=== PATIENT | female | born 1955 | race Caucasian/White ===

== ENCOUNTER 2022-04-08 10:01 | Outpatient (CLI) | payer MEDICARE, SELFPAY ==
[2022-04-08 14:27] LABS: Chloride* 105 mmol/L (96-114)
[2022-04-08 14:28] LABS: Potassium* 5.3 mmol/L (3.6-5.1); Sodium* 141 mmol/L (135-149)
[2022-04-08 14:29] LABS: Cholesterol* 202 mg/dL (90-199); HDL Cholesterol* 63 mg/dL (>=50); LDL Cholesterol Calculated 126 mg/dL (<100); Triglycerides* 64 mg/dL (40-149)
[2022-04-08 14:30] LABS: Creatinine* 0.8 mg/dL (0.5-1.5); Estimated Glomerular Filt Rate 82 ml/min
[2022-04-08 14:31] LABS: Alanine Aminotransferase* 18 U/L (4-35); Alkaline Phosphatase* 108 U/L (40-150); Aspartate Amino Transferase* 23 U/L (12-35); Bilirubin Total* 0.5 mg/dL (0.1-1.5); Blood Urea Nitrogen* 22 mg/dL (7-30); Carbon Dioxide* 32 mmol/L (20-32); Glucose* 100 mg/dL (60-115); Total Protein* 7.6 g/dL (6.0-8.3)
[2022-04-08 14:32] LABS: Calcium* 8.7 mg/dL (8.4-10.6)
== END 2022-04-08 10:02 | disposition home or self-care (01) ==
PROVIDERS: PCP Family Medicine; Visit Provider Dermatology
DX: L30.9 Dermatitis, unspecified (principal); Z13.6 Encounter for screening for cardiovascular disorders
CPT/HCPCS: 80053; 80061

== ENCOUNTER 2022-07-14 07:56 | Outpatient (CLI) | payer MEDICARE, SELFPAY ==
[2022-07-14 14:20] LABS: Albumin* 4.1 g/dL (3.3-5.0); Chloride* 107 mmol/L (96-114)
[2022-07-14 14:21] LABS: Potassium* 4.5 mmol/L (3.6-5.1); Sodium* 143 mmol/L (135-149)
[2022-07-14 14:23] LABS: Alkaline Phosphatase* 104 U/L (40-150); Aspartate Amino Transferase* 20 U/L (12-35); Bilirubin Total* 0.7 mg/dL (0.1-1.5); Blood Urea Nitrogen* 19 mg/dL (7-30); Carbon Dioxide* 27 mmol/L (20-32); Creatinine* 0.8 mg/dL (0.5-1.5); Estimated Glomerular Filt Rate 82 ml/min; Total Protein* 7.3 g/dL (6.0-8.3)
[2022-07-14 14:24] LABS: Alanine Aminotransferase* 17 U/L (4-35); Calcium* 9.2 mg/dL (8.4-10.6); Glucose* 92 mg/dL (60-115)
== END 2022-07-14 07:57 | disposition home or self-care (01) ==
LOC: FRMREF 07:57
PROVIDERS: PCP Family Medicine; Visit Provider Dermatology
DX: Z79.631 Long term (current) use of antimetabolite agent (principal)
CPT/HCPCS: 80053

== ENCOUNTER 2022-11-19 08:10 | Outpatient (CLI) | payer MEDICARE, SELFPAY | END 2022-11-19 08:11 | disposition home or self-care (01) | LOC: NFLDREF 18:17 | PROVIDERS: PCP Family Medicine; Referring Provider Family Medicine; Visit Provider Dermatology | DX: Z79.631 Long term (current) use of antimetabolite agent (principal) | CPT/HCPCS: 80053 ==

== ENCOUNTER 2022-12-24 14:25 | Outpatient (CLI) | payer MEDICARE, SELFPAY | END 2022-12-24 14:26 | disposition home or self-care (01) | PROVIDERS: PCP Family Medicine; Visit Provider Family Medicine | DX: R10.30 Lower abdominal pain, unspecified (principal); E66.01 Morbid (severe) obesity due to excess calories; R53.83 Other fatigue | CPT/HCPCS: 80053; 87086 ==

== ENCOUNTER 2023-01-20 08:07 | Outpatient (CLI) | payer MEDICARE, SELFPAY | END 2023-01-20 08:08 | disposition home or self-care (01) | LOC: NFLDREF 01-21 09:45 | PROVIDERS: PCP Family Medicine; Referring Provider Family Medicine; Visit Provider Dermatology | DX: E66.01 Morbid (severe) obesity due to excess calories (principal); L65.9 Nonscarring hair loss, unspecified; E55.9 Vitamin D deficiency, unspecified; F41.9 Anxiety disorder, unspecified; R10.9 Unspecified abdominal pain; Z79.631 Long term (current) use of antimetabolite agent | CPT/HCPCS: 80053 ==

== ENCOUNTER 2023-04-08 08:22 | Outpatient (CLI) | payer MEDICARE, SELFPAY | END 2023-04-08 08:23 | disposition home or self-care (01) | LOC: NFLDREF 04-14 08:10 | PROVIDERS: PCP Family Medicine; Referring Provider Family Medicine; Visit Provider Dermatology | DX: L20.9 Atopic dermatitis, unspecified (principal); Z79.631 Long term (current) use of antimetabolite agent | CPT/HCPCS: 80053 ==

== ENCOUNTER 2023-07-08 08:08 | Outpatient (CLI) | payer MEDICARE, SELFPAY | END 2023-07-08 08:09 | disposition home or self-care (01) | LOC: NFLDREF 07-09 07:38 | PROVIDERS: PCP Family Medicine; Referring Provider Family Medicine; Visit Provider Dermatology | DX: Z79.631 Long term (current) use of antimetabolite agent (principal) | CPT/HCPCS: 80053 ==

== ENCOUNTER 2023-08-09 08:40 | Outpatient (CLI) | payer MEDICARE, SELFPAY | END 2023-08-09 08:41 | disposition home or self-care (01) | LOC: NFLDREF 08-11 11:51 | PROVIDERS: PCP Family Medicine; Referring Provider Family Medicine; Visit Provider Family Medicine | DX: Z00.00 Encounter for general adult medical examination without abnormal findings (principal); E55.9 Vitamin D deficiency, unspecified; E66.01 Morbid (severe) obesity due to excess calories; R53.83 Other fatigue; R73.01 Impaired fasting glucose | CPT/HCPCS: 80053; 80061; 82306 ==

== ENCOUNTER 2023-08-18 14:37 | Outpatient (CLI) | payer MEDICARE, SELFPAY ==
--- NOTE | 2023-08-18 15:00 | CRLHL7_ITS ---
For Patients: As a result of the Century Cures Act, medical imaging exams and procedure reports are released immediately into your electronic medical record. You may view this report before your referring provider. If you have questions, please contact your health care provider. Indication: Pulmonary nodule follow up Technique: Noncontrast CT chest Please note that all CT scans at this facility use dose modulation, iterative reconstruction, and/or weight-based dosing when appropriate to reduce radiation dose to as low as reasonably achievable. Comparison: 10/31/2021 Findings: 7.2 cm hiatal hernia is again noted. Chronic stranding with sub centimeter lymph nodes noted in the central mesenteric fat representing incidental mesenteric panniculitis. Spleen is not enlarged. No adrenal lesion. Visualized right kidney normal. Left renal fossa is similar. No calcified gallstones. Normal noncontrast enhanced liver. Mild pancreatic atrophy. No enlarged lymph nodes. No thyroid lesion. Vascular calcifications. Degenerative changes. No fracture. No suspicious osseous lesion. Stable nodular density right middle lobe, . Stable linear density in the medial aspect of the right upper lobe, 11/19. Impression: Stable small right-sided pulmonary nodules. No new nodule. Unchanged hiatal hernia. Please note that all CT scans at this facility use dose modulation, iterative reconstruction, and/or weight-based dosing when appropriate to reduce radiation dose to as low as reasonably achievable. Dictated by Elan Mon MD @ 08/19/2023 4:39:41 PM (Electronically Signed)
== END 2023-08-18 14:38 | disposition home or self-care (01) ==
LOC: CT 14:38
PROVIDERS: PCP Family Medicine; Visit Provider Family Medicine
DX: R91.1 Solitary pulmonary nodule (principal); K44.9 Diaphragmatic hernia without obstruction or gangrene
CPT/HCPCS: 71250

== ENCOUNTER 2023-10-12 08:27 | Outpatient (CLI) | payer MEDICARE, SELFPAY | END 2023-10-12 08:28 | disposition home or self-care (01) | LOC: NFLDREF 10-13 11:30 | PROVIDERS: PCP Family Medicine; Referring Provider Family Medicine; Visit Provider Dermatology | DX: L30.9 Dermatitis, unspecified (principal); Z79.631 Long term (current) use of antimetabolite agent | CPT/HCPCS: 80053 ==

== ENCOUNTER 2023-11-05 08:40 | Outpatient (CLI) | payer MEDICARE, SELFPAY ==
--- NOTE | 2023-11-05 09:45 | MM_ITS ---
Patient: MARINO CHANG Facility:?[facility] R[facility] Patient ID:?[id number] Site Patient ID:?[id number]. Site :?1955 Study:?XRay-Breast Bilateral 3D W/CAD-11/05/2023 10:08:32 AM Ordering Physician:Veronica Final Report: BILATERAL DIGITAL SCREENING MAMMOGRAM WITH COMPUTER-AIDED DETECTION AND TOMOSYNTHESIS 11/05/2023 CLINICAL HISTORY: Routine screening exam. COMPARISON: 12/11/2021, 01/28/2020. TECHNIQUE: Digital mammogram in CC and MLO projections including computer-aided detection (CAD) and tomosynthesis. BREAST COMPOSITION: Scattered fibroglandular densities. FINDINGS: RIGHT Breast: Focal nodular density retroareolar plane, slightly medial, 2 cm from the nipple. LEFT Breast: No suspicious findings. IMPRESSION: RIGHT breast asymmetry/mass. RECOMMENDATIONS: Additional mammographic views of the RIGHT breast including 3D spot-compression CC/MLO. RIGHT breast ultrasound may also be required. [facility] will contact the patient. BI-RADS Category 0: Incomplete: Need Additional Imaging Evaluation and/or Prior Mammograms for Comparison Dictated by Elan Mon MD @ 11/05/2023 11:38:01 AM ZIGGY/gianni DW/Dictated by: Elan Mon MD @ 11/05/2023 11:38:00 AM Signed by:?Elan Mon MD @11/05/2023 2:34:25 PM (Electronic Signature)
== END 2023-11-05 08:41 | disposition home or self-care (01) ==
LOC: MAMMO 08:43
PROVIDERS: PCP Family Medicine; Visit Provider Family Medicine
DX: Z12.31 Encounter for screening mammogram for malignant neoplasm of breast (principal); N63.10 Unspecified lump in the right breast, unspecified quadrant
CPT/HCPCS: 77063; 77067

== ENCOUNTER 2023-11-25 08:36 | Outpatient (CLI) | payer MEDICARE, SELFPAY ==
--- NOTE | 2023-11-25 08:45 | MM_ITS ---
Patient: MARINO CHANG Facility:?[facility] R[facility] Patient ID:?[id number] Site Patient ID:?[id number]. Site :?1955 Study:?XRay-Breast Right 3D W/CAD-11/25/2023 9:24:28 AM Ordering Physician:Veronica Final Report: DIGITAL DIAGNOSTIC RIGHT MAMMOGRAM USING TOMOSYNTHESIS AND COMPUTER-AIDED DETECTION RIGHT BREAST ULTRASOUND CLINICAL HISTORY: RIGHT breast mass/asymmetry. COMPARISON: 11/05/2023. TECHNIQUE: Digital RIGHT mammogram in two projections. Tomosynthesis and CAD utilized. Real-time ultrasound imaging of RIGHT breast with imaging documentation. Scanning was performed by both the technologist and the radiologist. BREAST COMPOSITION: There are areas of scattered fibroglandular density. FINDINGS: 3D spot compression CC/MLO RIGHT breast mammogram images submitted. Persistent nodular density within the retroareolar plane. No architectural distortion. No suspicious calcifications. Targeted RIGHT breast ultrasound performed. At 12 o`clock 2 cm from the nipple there is a macrolobular hypoechoic mass with angular margins measuring 20 x 12 x 16 millimeters. Other smaller similar lesions are present in the adjacent soft tissues. IMPRESSION: Suspicious 2 cm lesion RIGHT breast 12 o`clock 2 cm from the nipple. RECOMMENDATIONS: Ultrasound-guided core needle biopsy of the 2 cm lesion. Results and recommendations discussed with the patient. BI-RADS Category 4: Suspicious A lay language report of this examination will be provided to the patient. Dictated by Elan Mon MD @ 11/25/2023 10:20:21 AM jj/Dictated by: Elan Mon MD @ 11/25/2023 10:20:00 AM Signed by:Edson Mon MD @11/25/2023 12:15:08 PM (Electronic Signature)
--- NOTE | 2023-11-25 09:15 | US_ITS ---
Patient: MARINO CHANG Facility:?[facility] Patient ID:?[id number] Site Patient ID:?[id number]. Site :?1955 Study:?US-Breast Right DR LEWIS TO READ-11/25/2023 10:52:42 AM Ordering Physician:?ZHOU CHEN Final Report: PLEASE SEE DIGITAL DIAGNOSTIC RIGHT MAMMOGRAM PERFORMED SAME DAY CRL:kahlil guillory/Dictated by: Elan Lewis MD @ 11/25/2023 11:17:00 AM Signed by:?Elan Lewis MD @11/25/2023 12:15:14 PM (Electronic Signature)
== END 2023-11-25 08:37 | disposition home or self-care (01) ==
LOC: MAMMO 08:37
PROVIDERS: PCP Family Medicine; Visit Provider Family Medicine
DX: N63.10 Unspecified lump in the right breast, unspecified quadrant (principal); R92.8 Other abnormal and inconclusive findings on diagnostic imaging of breast
CPT/HCPCS: 76642; 77065; G0279

== ENCOUNTER 2023-12-06 06:43 | Outpatient (CLI) | payer MEDICARE, SELFPAY ==
--- NOTE | 2023-12-06 08:15 | US_ITS ---
Patient: MARINO CHANG Facility:?[facility] R[facility] Patient ID:?[id number] Site Patient ID:?[id number] Site :?1955 Study:?US-Breast Right DR LEWIS TO READ-12/06/2023 9:02:38 AM Ordering Physician:?ZHOU CHEN Final Report: ULTRASOUND-GUIDED CORE NEEDLE RIGHT BREAST BIOPSY OF TWO SITES AND POST-BIOPSY DIGITAL MAMMOGRAM FOR BIOPSY MARKER PLACEMENT CLINICAL HISTORY: Indeterminate nodules. COMPARISON STUDIES: 11/25/2023, 11/05/2023 TECHNIQUE: Real-time ultrasound with image documentation was used for targeting the breast lesions. A core needle biopsy system was used to obtain core tissue samples with a 18 gauge needle. Post-biopsy CC and ML digital mammograms were obtained to document position of the biopsy marker. CONSENT and TIME OUT: The procedure, risks, and alternatives were explained to the patient and a consent was signed. [place] Protocol was followed including pre-procedure verification that relevant information/documentation was available, reviewed and properly matched to the patient; consent accurate and complete; and equipment and supplies available. Time Out was conducted just prior to starting procedure to verify the four required elements: patient identity, correct side/site marked (if applicable), procedure, relevant images/results properly labeled and displayed (if applicable). PROCEDURE: All biopsies were performed in a similar manner. The patient was positioned supine on the ultrasound table. The breast was prepped with ChloraPrep. 8 cc of 1 percent lidocaine used for local anesthesia. Core samples were obtained. A sterile metal biopsy clip was placed percutaneously to gurpreet the lesion position within the breast. The specimens were placed in 10% formalin and sent to the Pathology Department. Pressure was held on the biopsy site until all bleeding subsided. The skin incision was closed with Steri-Strips. An ice pack was positioned over the biopsy site. The patient tolerated the procedure well. Post- biopsy instructions were reviewed with the patient, and a written copy was given to her. SITE A: LATERALITY: Right breast. LESION: Hypoechoic solid nodule with angular margins measuring 1.2 x 1.1 cm at 12 o`clock 2 cm from the nipple. SUSPICION: High NUMBER OF SAMPLES: 5 BIOPSY CLIP SHAPE: Oval PROXIMITY OF CLIP TO TARGET: Within the lesion. SITE B: LATERALITY: Right breast. LESION: Hypoechoic solid nodule anterior depth measuring 4 x 2 x 4 millimeters at 12 o`clock 1 cm from the nipple. SUSPICION: Medium NUMBER OF SAMPLES: 5 BIOPSY CLIP SHAPE: Twirl. PROXIMITY OF CLIP TO TARGET: Within the lesion. DISTANCE BETWEEN: Sites A and B: 1.4 cm IMPRESSION: Ultrasound-guided breast biopsy of two sites. When the pathology report is available, an addendum to this report will be made. 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 This is concordant. Appropriate action recommended. Pathology for sample B is DCIS, grade 2/3. This is concordant. Appropriate action recommended. Note that there are other small hypoechoic lesions in the adjacent tissues. Mastectomy should be considered rather than lumpectomy. Dictated by: Elan Lewis MD @12/08/2023 10:00:50 AM / Dory Signed by:?Elan Lewis MD @12/08/2023 11:18:25 AM (Electronic Signature)
--- NOTE | 2023-12-06 09:00 | MM_ITS ---
Patient: MARINO CHANG Facility:?[facility] R[facility] Patient ID:?[id number] Site Patient ID:?[id number] Site :?1955 Study:?XRay-Breast Right 2D w/ CAD POST CLIP PLACEMENT-12/06/2023 8:53:30 AM Ordering Physician:Veronica Final Report: PLEASE SEE RIGHT ULTRASOUND-GUIDED BIOPSY OF SAME DAY. CRL:pjt PT/Dictated by: Elan Mon MD @ 12/06/2023 10:22:00 AM Signed by:?Elan Mon MD @12/06/2023 10:36:27 AM (Electronic Signature)
== END 2023-12-06 06:44 | disposition home or self-care (01) ==
LOC: US 06:43
PROVIDERS: PCP Family Medicine; Visit Provider Family Medicine
DX: N63.10 Unspecified lump in the right breast, unspecified quadrant (principal); C50.911 Malignant neoplasm of unspecified site of right female breast; R92.8 Other abnormal and inconclusive findings on diagnostic imaging of breast
CPT/HCPCS: 19083; 19084; 77065; 88305; 88341; 88342; 88360; 88361; 88377; A4648; A4649

== ENCOUNTER 2023-12-24 06:39 | Outpatient (CLI) | payer MEDICARE, SELFPAY ==
--- NOTE | 2023-12-24 07:15 | MR_ITS ---
Patient: MARINO CHANG Facility:?[facility] R[facility] Patient ID:?[id number] Site Patient ID:?[id number]. Site :?1955 Study:?MRI-Breast W/ and W/O Cont 20 CC DOATERM-12/24/2023 11:33:57 AM Ordering Physician:?GREGG CHAMORRO Final Report: BILATERAL BREAST MRI WITHOUT AND WITH GADOLINIUM CLINICAL HISTORY: New diagnosis RIGHT breast cancer. INDICATION FOR BREAST MRI: Staging of newly diagnosed breast cancer and screening of contralateral breast. Regional lymph nodes will also be assessed. COMPARISON STUDIES: 11/05/2023, 11/25/2023, 12/06/2023. CONTRAST: 30 mL Dotarem. TECHNIQUE: The patient was positioned prone using a breast coil. Multiple imaging sequences were obtained using 1-1.5 mm thick slices with no gap. The image sequences include T2-weighted STIR in the axial plane, T1-weighted nonfat-saturated gradient echo in the axial plane, pre- and post-contrast T1-weighted FLASH 3D with fat suppression in the axial plane, and T1-weighted FLASH high resolution 3D with fat suppression in the sagittal plane. Image post-processing was performed on a [employer] workstation. Complex 3D rendering including maximum intensity projections (MIPS) and volumetric renderings were obtained to optimize visualization of the extent of pathology and relationship to the nipple, skin, and chest wall. This aids in determining feasibility of breast conservation surgery. Subtraction, multiplanar reconstruction, mean curve determination, and angiogenesis mapping were also performed. The study is limited by large breast size. FINDINGS: Amount of Fibroglandular Tissue: Almost entirely fatty. Breast Background Enhancement: Mild. RIGHT Breast: The anterior portion of the RIGHT breast is compressed due to size and positioning. The new cancer at 12 o`clock 2 cm from the nipple is visualized as a solid irregular enhancing mass containing the Q-shaped marker clip placed. Measurement is 13 mm in diameter. The second biopsy site is not clearly seen on MRI due to positioning. The marker clip is not visualized. There is a small enhancing mass just inferior lateral to the primary biopsy-proven cancer. Measurement 5 mm in size. This may be the second known cancer site. The remainder of the RIGHT breast is negative. LEFT Breast: No suspicious mass or non-mass enhancement. There is compression of the anterior portion of the breast which limits the study. IMPRESSIONS AND RECOMMENDATIONS: The new breast cancer Site A is visualized at 12 o`clock 2 cm from the nipple as a 13 mm enhancing mass with a signal void from marker clip placed at biopsy. Nearby there is a 5 mm mass with enhancement. This may or may not be the Site B biopsy site. The LEFT breast is negative. No enlarged lymph nodes. Study is technically limited due to breast size. Recommend proceed with treatment based on ultrasound and mammogram images which showed the anterior portion of the breast to better advantage. BI-RADS Category 6: Known biopsy-proven malignancy Dictated by Ana Quinn MD @ 12/27/2023 5:20:41 PM jj/Dictated by: Ana Quinn MD @ 12/27/2023 5:29:00 PM Signed by:?Ana Quinn MD @12/29/2023 3:36:50 PM (Electronic Signature)
== END 2023-12-24 06:40 | disposition home or self-care (01) ==
LOC: MRI 06:39
PROVIDERS: PCP Family Medicine; Visit Provider Surgery
DX: C50.911 Malignant neoplasm of unspecified site of right female breast (principal)
CPT/HCPCS: 77049; C8908; C8937; A9575

== ENCOUNTER 2024-01-18 06:48 | Inpatient (IN) | payer MEDICARE, SELFPAY ==
[2024-01-18] VITALS (21 sets, daily range): BP systolic 115–168; BP diastolic 52–98; PULSE 71–101; RESP 14–16; TEMP 36.1–36.8; O2SAT 92–99; BMI 49.8
[2024-01-18] MEDS: LACTATED RINGERS 1000 ML 1,000 ML 100 ML IV ×2 (07:18→13:12)
[2024-01-18] MEDS: SODIUM CHLORIDE 0.9 % (FLUSH) 10 ML SYRINGE IVF (07:18)
--- NOTE | 2024-01-18 08:00 | CRLHL7_ITS ---
For Patients: As a result of the Century Cures Act, medical imaging exams and procedure reports are released immediately into your electronic medical record. You may view this report before your referring provider. If you have questions, please contact your health care provider. SENTINEL LYMPH NODE LOCALIZATION INJECTION CLINICAL HISTORY: Breast cancer LATERALITY: Right breast TECHNIQUE: With the patient supine, the periareolar right breast was cleansed with alcohol. Approximately 1 cc of 1% buffered lidocaine was injected intradermal in the upper outer periareolar region of the right breast with a 25-gauge needle. Next, 0.81 millicuries of technetium Tc 99m sulfur colloid in a volume of 1 cc was injected intradermal in the upper outer periareolar breast with a 25-gauge needle. The patient tolerated the procedure well and there were no immediate complications. IMPRESSION: Injection for sentinel lymph node of the right breast. Dictated by Elan Mon MD @ 01/19/2024 12:44:24 PM (Electronically Signed)
--- NOTE | 2024-01-18 08:21 | W.PM.H&PU ---
History & Physical Update History & Physical Update H&P Reviewed and patient assessed: No changes noted
[2024-01-18] MEDS: ISOSULFAN BLUE 5 ML VIAL INJECTION (09:10)
[2024-01-18] MEDS: CEFAZOLIN 1 GM inj 3 GM IVP (09:10)
--- NOTE | 2024-01-18 09:47 | W.ANESCHARGE ---
Anesthesia Charges Start Date/Time Anesthesia Start Date: 01/18/24 Anesthesia Start Time: 08:50 Stop Date/Time Anesthesia Stop Date: 01/18/24 Anesthesia Stop Time: 13:46
--- NOTE | 2024-01-18 09:48 | W.PM.NB ---
Nerve Block Nerve Block Time Seen by Provider: 09:05 Date Seen: 01/18/24 Type of block requested by surgeon for post-operative analgesia: intercostal (PECS 1 and 2) and intercostal add on Side: bilateral Time out performed: Yes Verification of patient name: Yes Verification of date of : Yes Site marking: site marked Name of person performing procedure: Titi Continuous monitoring Was continuous monitoring of O2 sat, B/P, monitoring and evaluation advisor, recorded every 15 minutes?: Yes Procedure Checklist: sterile prep, needles and gloves Ultrasound guided. Images saved: Yes Medications given in 5ml increments after negative aspiration: Marcaine %: 0.25 mL: 30 and Exparel mL: 20 Needle gauge: 20 Patient tolerated procedure well: Yes Block Charges Block Charge (with Pro Fee): Intercostal Nerve Block Use of Ultrasound Machine for Block: Yes- US Guidance/pain block
--- NOTE | 2024-01-18 13:54 | W.ANESCHARGE ---
Anesthesia Charges Start Date/Time Anesthesia Start Date: 01/18/24 Anesthesia Start Time: 08:50 Stop Date/Time Anesthesia Stop Date: 01/18/24 Anesthesia Stop Time: 13:46
[2024-01-18] MEDS: fentaNYL 100 MCG/2 ML inj 50 MCG IVP (14:03)
--- NOTE | 2024-01-18 14:09 | P.GSOP_ITS ---
Operative Note Date of procedure: 01/18/24 Pre-op diagnosis: Invasive ductal carcinoma, right breast Post-op diagnosis: Same Type of Procedure: 1. Bilateral mastectomy 2. Injection of radionucleotide tracer 3. [place] lymph node biopsy, right axilla Indications: Patient is a 68-year-old female who presented to clinic with a diagnosis of i nvasive ductal carcinoma to the right breast. Workup was obtained and different treatment options discussed with patient, please see consultation note for full discussion. Risks and benefits of operative intervention were discussed at length with the patient. Risks included, but were not limited to: Bleeding, infection, risk of damage to surrounding structures and possible need for additional procedures. Additionally we reviewed the risk of sentinel lymph node biopsy, specifically lymphedema and nerve injury. All questions and concerns were addressed with patient agreeing to proceed. Procedure Description: After discussing the risks and benefits of the procedure, the patient signed informed consent.? Prior to proceeding to the operating room an injection of a radionucleotide tracer was performed in the patient's right breast. The operative site was marked and the patient was brought to the operating room and placed on the operating table in supine position.? Care was taken to pad the patient's pressure points.?? The patient was then intubated by anesthesia.?? The operative site was then prepped and draped in the usual sterile fashion.? A time-out was then performed. I injected 3 cc of lymphazurin blue in the patient's right breast. I then performed breast massage for a period of 5 minutes. I performed an elliptical incision on the right breast around the nipple-areolar complex and started by dissecting the subcutaneous tissues using electrocautery. The breast flaps were created circumferentially, dissecting all the breast tissue off of the overlying skin superiorly up to the clavicle, medially to the lateral border of the sternum, laterally out to the latissimus and inferiorly to the inferior aspect of the breast fold. Once flaps had been raised in all 4 directions down to the level of the fascia, the breast was taken off of the chest wall. The underlying tissue was inspected. Any identified bleeding vessel s were tied off with 3 0 Vicryl suture. Hemostasis was excellent at the end. The breast was removed through the incision and marked with a single stitch at 12:00 p.m.. It was sent to pathology for immediate assessment. The known tumor was identified by the pathologist and all margins were negative. I then proceeded to take out the sentinel lymph nodes through the mastectomy incision. Using the Neoprobe I identified the sentinel lymph node. All nodes were grossly normal. The node was identified and carefully dissected out. The vascular pedicle was ligated with 3-0 Vicryl suture. The node was then passed off for frozen evaluation, which came back as no evidence of malignancy. Background counts in the axilla were low after removal. No further sentinel nodes were identified. When evaluating the elliptical incision on the right breast there was a significant amount of redundant skin and soft tissue. A portion of the superior and inferior flap were removed and sent for permanent evaluation. The elliptical incision was then brought together with interrupted 3-0 Vicryl. A 15 [place]er SJ drain was placed along the breast wall. The incision was closed with running 4-0 Monocryl suture. I then proceeded to perform a contralateral prophylactic mastectomy in the same fashion. I made an elliptical incision around the nipple-areolar complex and began by dissecting the subcutaneous tissues using electrocautery. The breast flaps were created circumferentially, dissecting all the breast tissue off of the overlying skin superiorly up to the clavicle, medially to the lateral border of the sternum, laterally out to the latissimus and inferiorly to the inferior aspect of the breast fold. Once flaps had been raised in all 4 directions down to the level of the fascia, the breast was taken off of the chest wall. The breast was removed through the incision and marked with a single stitch at 12:00 p.m.. It was sent to pathology for immediate assessment, where no obvious abnormalities were identified. Any bleeding vessels were tied off with 3 0 Vicryl. Hemostasis was excellent. A 15 [place]er SJ drain was placed on the left side. The elliptical incision was brought together with interrupted 3 0 Vicryl. The incision was closed with running 4-0 Monocryl suture. Steri-Strips and Sterile dressings were then applied. All bandages were held in place with an Daniel wrap. ? The patient was then woken and transported to the recovery area in stable condition. ? The patient tolerated the procedure well. Findings: Bilateral mastectomy. Right breast invasive ductal carcinoma, margins negative. Single sentinel lymph node identified and negative on frozen pathology. Anesthesia: GETA Surgeon: Reina Schroeder MD Estimated blood loss (mL): 200 Condition: stable Disposition: PACU [place] Node Biopsy for Breast Cancer Operation Performed with Curative Intent: Yes Tracers used to Identify sentinel nodes in the upfront surgery (non-neoadjuvant) setting: Dye and Radioactive Tracer Tracers used to identify sentinel nodes in the neoadjuvant setting: N/A All nodes (colored or non-colored) present at the end of a dye filled lymphatic channel were removed: Yes All significantly radioactive nodes were removed: Yes All palpably suspicious nodes were removed: Yes Biopsy proven positive nodes marked with clips prior to chemotherapy were identified and removed: Not Applicable
--- NOTE | 2024-01-18 18:08 | PC.NURSE ---
Pt arrived from surgery around 1420. Pt drowsy; Pt on one Liter of oxygen short term. Pt has two SJ drains; see charting for output. VSS. Pt advanced to regular diet and tolerated well. Pt up with assist of two to the bedside commode; blue/green urine. Family at beside.?
[2024-01-18] MEDS: DULOXETINE 30 MG CAPSULE DR 60 MG PO (20:27)
[2024-01-19] VITALS (8 sets, daily range): BP systolic 109–133; BP diastolic 57–74; PULSE 81–104; RESP 16–18; TEMP 36.3–36.7; O2SAT 91–97
--- NOTE | 2024-01-19 03:31 | PC.NURSE ---
Pt rested well this night. Afebrile. Reporting zero pain. SJ drains right and left draining 5 to 15 over 2 hr periods. Pt A1 to bedside commode. Pleasant and cooperative.
[2024-01-19] MEDS: DULOXETINE 30 MG CAPSULE DR 120 MG PO (13:02)
--- NOTE | 2024-01-19 15:06 | PC.SOCIAL ---
Addendum entered by JACIEL Patel 01/19/24 16:30: Discharge planning: roller shop utility worker met with pt, pt's sister and pt's daughter again this afternoon and updated them letting them know that [facility] and [facility] do not have openings this week. roller shop utility worker did let pt know that [facility] was reviewing the referral. roller shop utility worker asked pt if there were other facilities that this worker could reach out to for her and we reviewed the [facility] together. Pt wanted this worker to reach out to both facilities in [place], [place]. roller shop utility worker talked to Disha at [facility] and they stated they may have an opening on Wednesday and were willing to review the referral. roller shop utility worker faxed the referral to #[phone]. roller shop utility worker also contacted [facility] in [place] and left a message, but also faxed the referral to #[phone]. Social work to follow-up as needed. Original Note: Discharge planning: roller shop utility worker met with pt, pt's sister and pt's daughter today. PT/OT is recommending short-term rehab for the patient. Pt would like to go to [facility] in [place], [facility] in [place] or [facility] [place]. roller shop utility worker reached out to these facilities and [facility] and [facility] do not have any openings this week. [facility] stated they would have an opening on Wednesday and could review pt's referral. roller shop utility worker sent the referral to Komal at [facility] for review. roller shop utility worker will check-in with pt to see if there are other facilities that this worker can reach out to on her behalf. Social work to follow-up as needed.
--- NOTE | 2024-01-19 15:07 | PM.GSPN ---
Subjective Subjective Date Seen: 01/19/24 Interval history: Patient is doing well this morning. No complaints of pain. Has been tolerating a regular diet. No concerns this morning. Exam Narrative: Exam Narrative: Gen: alert and oriented, NAD Chest: Bilateral mastectomy incisions with steri strips in place. No bruising of flaps. No concern for ischemia. No large fluid collection. Bilateral drains in place with dark sanguinous output in bulbs. Const: Vital Signs, click to edit/add: Vital Signs - 24 hr 01/18/24 15:15 01/18/24 16:00 01/18/24 16:30 Temperature 97.4 F L 97.6 F 97.6 F Pulse Rate 71 79 81 Pulse Rate [Pulse Oximeter] Respiratory Rate 16 16 16 Blood Pressure 145/84 H 144/87 H 153/92 H Blood Pressure [Le ft Arm] Pulse Oximetry 98 98 98 Oxygen Delivery Me thod Room Air Room Air Room Air Oxygen Flow Rate 1 0 0 Fraction of Inspir ed Oxygen 01/18/24 17:30 01/18/24 18:50 01/18/24 19:25 Temperature 97.8 F 97.8 F 97.8 F Pulse Rate 76 95 86 Pulse Rate [Pulse Oximeter] Respiratory Rate 16 16 16 Blood Pressure 136/82 141/81 H 126/76 Blood Pressure [Le ft Arm] Pulse Oximetry 98 96 96 Oxygen Delivery Me thod Room Air Room Air Room Air Oxygen Flow Rate 0 0 0 Fraction of Inspir ed Oxygen 01/18/24 20:26 01/18/24 22:01 01/19/24 01:32 Temperature 97.8 F 97.8 F 97.8 F Pulse Rate 88 Pulse Rate [Pulse Oximeter] 92 87 Respiratory Rate 16 16 16 Blood Pressure 130/52 L Blood Pressure [Le ft Arm] 115/75 127/74 Pulse Oximetry 98 98 97 Oxygen Delivery Me thod Room Air Room Air Room Air Oxygen Flow Rate 0 Fraction of Inspir ed Oxygen 100 01/19/24 09:00 01/19/24 09:00 Temperature 98.1 F Pulse Rate Pulse Rate [Pulse Oximeter] 81 81 Respiratory Rate 18 18 Blood Pressure Blood Pressure [Le ft Arm] 129/73 Pulse Oximetry 95 Oxygen Delivery Me thod Room Air Oxygen Flow Rate Fraction of Inspir ed Oxygen Progress Note:A&P Assessment and plan (1) Invasive ductal carcinoma of breast: Status: Acute Plan Patient is pod1 bilateral mastectomy with right sentinel lymph node biopsy. Intra op frozen evaluation with negative margins around tumor and no evidence of metastatic disease. Dark sanguinous output, 125 since surgery. No concern for bleeding or undrained fluid collection. Patient does use a walker for mobility, so is limited in the post op phase. Social work has been consulted and is looking for rehab facilities. PT and OT consulted and seeing while inpatient. Anticipate discharge once placement is found. - regular diet - SJ drains to stay in place at the time of discharge - po pain meds as needed - PT and OT evaluations
--- NOTE | 2024-01-19 19:16 | PC.NURSE ---
PATIENT CONTINUES TO DENY PAIN OR N/V. UP WITH A1 AND WALKER TO BATHROOM AND RECLINER. DRESSING TO CHEST CDI. SJ x2 WITH BLOOD OUTPUT. AFEBRILE. TOLERATING REGULAR DIET.
[2024-01-20 01:51] VITALS: BP 124/63; PULSE 88; RESP 16; TEMP 36.2; O2SAT 92
--- NOTE | 2024-01-20 06:04 | PC.NURSE ---
Pt up A1 with walker. Reporting zero pain. SJ drains draining approx 5cc per 2hr period. Pt much stronger than previous night.
[2024-01-20 07:00] VITALS: BP 113/64; PULSE 88; RESP 18; TEMP 36.4; O2SAT 93
[2024-01-20 11:00] VITALS: BP 119/61; PULSE 83; RESP 18; TEMP 36.5; O2SAT 94
--- NOTE | 2024-01-20 12:15 | PM.GSPN ---
Subjective Subjective Date Seen: 01/20/24 Interval history: [place] is doing well. She denies any pain. She has not taken any pain medication. She is working with therapy. Minimal output from her drains. She is waiting for availability at a group home facility. Exam Narrative: Exam Narrative: General: No acute distress CV: Regular rate Respiratory: Breathing nonlabored on room air Chest: Dressings taken down. Habitus makes exam somewhat difficult, however there does not appear to be any large fluid collections. Patient does have fairly significant dog ears bilaterally, though they are soft without significant ecchymosis. Drain output is 100 mL bilaterally of bloody output. Const: Vital Signs, click to edit/add: Vital Signs - 24 hr 01/19/24 13:00 01/19/24 15:00 01/19/24 17:00 Temperature 98.1 F 98 F Pulse Rate [Pulse Oximeter] 83 84 84 Respiratory Rate 18 18 18 Blood Pressure [Le ft Arm] 109/57 L 123/63 Pulse Oximetry 96 94 Oxygen Delivery Me thod Room Air Room Air Oxygen Flow Rate 0 0 01/19/24 19:16 01/19/24 22:09 01/19/24 22:12 Temperature 97.4 F L 97.8 F Pulse Rate [Pulse Oximeter] 104 H 104 H 104 H Respiratory Rate 16 16 16 Blood Pressure [Le ft Arm] 133/64 123/72 Pulse Oximetry 92 91 Oxygen Delivery Me thod Room Air Room Air Oxygen Flow Rate 01/20/24 01:51 01/20/24 07:00 01/20/24 07:00 Temperature 97.2 F L 97.6 F Pulse Rate [Pulse Oximeter] 88 88 88 Respiratory Rate 16 18 18 Blood Pressure [Le ft Arm] 124/63 113/64 Pulse Oximetry 92 93 Oxygen Delivery Me thod Room Air Room Air Oxygen Flow Rate 01/20/24 11:00 Temperature 97.7 F Pulse Rate [Pulse Oximeter] 83 Respiratory Rate 18 Blood Pressure [Le ft Arm] 119/61 Pulse Oximetry 94 Oxygen Delivery Me thod Room Air Oxygen Flow Rate Labs/Imaging Labs Labs: No labs. Progress Note:A&P Assessment and plan (1) Morbid obesity with BMI of 50.0-59.9, adult: Status: Acute (2) Methotrexate, ocean transportation intermediary, current use: Status: Acute (3) Invasive ductal carcinoma of breast: Status: Acute Plan The patient is a 68-year-old female who is postop day 2 status post bilateral mastectomy and right axillary sentinel node biopsy for invasive ductal carcinoma of the right breast. -because she will likely remain inpatient at least an additional day, will start Lovenox for DVT prophylaxis after checking hemoglobin. -patient is fairly sedentary secondary to obesity and arthritis. She does ambulate with a walker. PT and OT are working with the patient. They have recommended group home after discharge because of need for wound cares and difficulty with ambulation. -methotrexate for eczema on hold in the perioperative period -empty and record drain output Q shift -encourage ambulation and IS -regular diet
[2024-01-20] MEDS: DULOXETINE 30 MG CAPSULE DR 120 MG PO (13:22)
[2024-01-20 13:45] LABS: Hemoglobin* 10.3 gm/dL (12.0-16.0)
--- NOTE | 2024-01-20 14:16 | PC.SOCIAL ---
Addendum entered by JACIEL Patel 01/20/24 15:11: Discharge planning: Pre-admission screening was completed, [id number] and given to Briana at [facility]. Social work to follow-up as needed. Addendum entered by JACIEL Patel 01/20/24 14:47: Discharge planning: Pt signed the transportation form agreeing to the estimated charge of $260.00 for non-emergent EMS transport. tie up worker did clarify with [facility] that they would like the pt there between 10am-noon tomorrow. Social work to follow-up as needed. Original Note: Discharge planning: Pt was accepted to [facility] in [place] for tomorrow. Pt accepts this facility and would like a private room([facility] has both shared and private available). tie up worker discussed with pt that there is an extra $35.00 a day charge for a private room per Briana at [facility]. Pt still wanted the private room. Pt also shared that she would need non-emergent EMS transport to take her to the facility, as she has no family that are able to take her tomorrow. Cost for this transport will be around $260.00. Pt needs to be to the facility by noon tomorrow. Charge nurse on duty was updated and will set-up transport. Social work to follow-up as needed.
--- NOTE | 2024-01-20 14:54 | PM.DS1 ---
DS: Providers Provider Date Seen: 01/21/24 Date of admission: 01/18/24 06:48 Primary care physician: Maranda Reagan MD Admitting Clinician: Reina Schroeder MD Consults: 01/18/24 07:13 Consult to Personal Health Coach [CONS] Routine Comment: Reason for Consult:: Discharge Planning Needs 01/18/24 14:21 Consult to Occupational Therapy [CONS] Routine Comment: Reason(s) for OT Consult:: ADLs Prior to Discharge Any Restrictions?:: See Comment Comment: No lifting > 10 lbs Consult to Physical Therapy [CONS] Routine Comment: Reason(s) for PT Consult:: Evaluate and Treat Any Restrictions?:: See Comment Comment: No lifting > 10 lbs Attending Physician on discharge: Reina Schroeder MD DS: Diagnosis Discharge Diagnosis (1) Invasive ductal carcinoma of breast: Status: Acute (2) Morbid obesity with BMI of 50.0-59.9, adult: Status: Acute (3) Methotrexate, oysterman, current use: Status: Acute Problem details: For eczema/Dr. Redd (4) Obstructive sleep apnea treated with continuous positive airway pressure (CPAP): Status: Chronic (5) S/P bilateral mastectomy: Status: Acute DS: Summary Hospital Course Hospital Course: The patient is a 68-year-old female who underwent bilateral mastectomy and right axillary sentinel node biopsy for right-sided invasive ductal carcinoma. She was admitted to the hospital postoperatively. She did well overall, however because of pre-existing mobility issues combined with need for drain care and activity restriction, she was felt to need discharge to a snf facility. She was able to do this on postop day 3. Her hospital stay was uneventful. Status at Discharge Functional status at discharge: uses cane/walker Time Spent with Patient Time attestation: Total time spent providing and/or coordinating discharge services: Exam Narrative: Exam Narrative: General: No acute distress Respiratory: Breathing nonlabored on room air CV: Regular rate Chest: Chest is wrapped. Drains with minimal serosanguineous output bilaterally. Const: Vital Signs, click to edit/add: Vital Signs - 24 hr 01/19/24 15:00 01/19/24 17:00 01/19/24 19:16 Temperature 98 F 97.4 F L Pulse Rate [Pulse Oximeter] 84 84 104 H Respiratory Rate 18 18 16 Blood Pressure [Le ft Arm] 123/63 133/64 Pulse Oximetry 94 92 Oxygen Delivery Me thod Room Air Room Air Oxygen Flow Rate 0 01/19/24 22:09 01/19/24 22:12 01/20/24 01:51 Temperature 97.8 F 97.2 F L Pulse Rate [Pulse Oximeter] 104 H 104 H 88 Respiratory Rate 16 16 16 Blood Pressure [Le ft Arm] 123/72 124/63 Pulse Oximetry 91 92 Oxygen Delivery Me thod Room Air Room Air Oxygen Flow Rate 01/20/24 07:00 01/20/24 07:00 01/20/24 11:00 Temperature 97.6 F 97.7 F Pulse Rate [Pulse Oximeter] 88 88 83 Respiratory Rate 18 18 18 Blood Pressure [Le ft Arm] 113/64 119/61 Pulse Oximetry 93 94 Oxygen Delivery Me thod Room Air Room Air Oxygen Flow Rate DS: Data Data Completed and Pending Labs on day of discharge: Labs from last 24 hours 01/20/24 13:35 Hgb 10.3 L Discharge Plan Discharge Disposition: [facility] Date of Admission: 01/18/24 06:48 Attending Provider on Discharge: Reina Schroeder Primary Care Provider: Maranda Reagan Condition: Improved Discharge Medications: New acetaminophen 325 mg Tablet 650 mg PO Q4H PRN (Reason: Pain) Qty: 25 0RF Continued clobetasol 0.05 % cream 1 applic topical BID PRN Rx Instructions: Apply topically to affected area (eczema) twice daily as needed. When cleared stop use until needed again polyethylene glycol 3350 [Miralax] 17 gram powder in packet 17 g PO BID PRN magnesium oxide 400 mg magnesium tablet 400 mg PO DAILY cholecalciferol (vitamin D3) [Vitamin D3] 50 mcg (2,000 unit) capsule 50 mcg PO DAILY duloxetine 60 mg capsule,delayed release(DR/EC) 120 mg PO DAILY@12 fluticasone propionate [Flonase Allergy Relief] 50 mcg/actuation spray,suspension 2 spray intranasal DAILY PRN (Reason: allergy symptoms) Rx Instructions: administer into each nostril folic acid 1 mg tablet 1 mg PO DAILY Qty: 90 0RF Held methotrexate sodium 2.5 mg tablet 20 mg PO QWEEK Qty: 96 0RF Hold Instructions: Resume on 01/27/24. Hold until told to resume by Dr. Schroeder Discharge Orders: Discharge Order (Routine); Ordered 01/21/24 Ordered By: Reina Schroeder Additional Instructions: Wear an HUEY wrap around your chest throughout the day and night as tolerated. Okay to remove HUEY wrap to shower. Okay to shower and allow water and soap to run over the incisions. You have steri strip dressings in place, allow these to fall off on their own. You have [address] Please empty these as needed. Record the output of each of your drains separately. You will see Dr. Schroeder in clinic next week to see if they can be removed. Activity Level: No strenuous activity Activity Detail: No lifting >10 lbs while drains remain in place. Discharge Diet: Regular Follow Up Appointments: Reina Schroeder MD [Staff Physician] - 01/27/24 2:00 pm ([facility] for Post Surgical appointment. ) Maranda Reagan MD [Primary Care Provider] - Forms: [facility] Info Instructions Discharge Potential: Good Length of Stay: <30 days Can use facility standing orders?: Yes Code Status: Full Code TEDs: Bilateral Knee Rehab Potential: Good Therapy: Physical Therapy and Occupational Therapy Therapy Orders: Evaluate and Treat Oxygen: No Urinary Catheter: No Orders are good >30 days: Yes Signature: Reina Schroeder MD, FACS
[2024-01-20 15:00] VITALS: BP 125/58; PULSE 83; RESP 16; TEMP 36.1; O2SAT 95
[2024-01-20 19:00] VITALS: BP 127/74; PULSE 88; RESP 16; TEMP 36.3; O2SAT 94
[2024-01-20] MEDS: ENOXAPARIN 40 MG/0.4 ML INJ SUBCUT (21:18)
--- NOTE | 2024-01-20 22:37 | PC.NURSE ---
End of Shift: Patient pleasant and cooperative. Afebrile. Denies pain. Dressing and delroy wrap to chest C/D/I. SJ drains emptied of bloody drainage. Up to chair and bathroom with SBA, walker and gait belt. Tolerating regular diet with no nausea.
[2024-01-20 23:00] VITALS: BP 125/65; PULSE 84; RESP 18; TEMP 36.6; O2SAT 94
[2024-01-21 02:57] VITALS: BP 130/69; PULSE 79; RESP 17; TEMP 36.3; O2SAT 93
--- NOTE | 2024-01-21 06:52 | PC.NURSE ---
Patient pleasant, alert and oriented. Denied pain. No active drainage at SJ sites. Dressings?clean, dry and intact.?Minimal drainage from SJ drain. Daniel wrap bandage adjusted as needed. ?
[2024-01-21 08:10] VITALS: BP 112/85; PULSE 83; RESP 18; TEMP 36.4; O2SAT 97
--- NOTE | 2024-01-21 10:37 | PC.NURSE ---
Discharge Note: The patient discharged to [facility] in [place] for rehab following a bilateral mastectomy. The patient reports no pain throughout the shift. The patients ABD pads were replaced bilaterally and the site was wrapped with an HUEY wrap for compression. The patient tolerated this well. All discharge information was given to the patient. I tried to call Tori to give nurse to nurse but it was sent to Frieda's voicemail I did leave a message to call me back. SBA w/ GB and the patients personal RW. VSS on RA. The patient had a BM today. The patient was wheeled out to be transported to the facility by [employer] transportation. Renu FAITH BSN
--- NOTE | 2024-01-21 10:42 | PC.SOCIAL ---
Discharge planning: Non-emergent EMS that was scheduled for the pt today for transport to [facility] in [place] time was bumped and then cancelled due to another emergent pt that needed transportation. Pt tried calling her daughter to see if she could give her a ride and she could not. Pt's son-in-law was able to give pt a ride and then started driving to the hospital from the [facility] and then his car broke down. workers' compensation mediator contacted [employer] transportation who stated that she could take the pt, but needed to leave [place] soon, as she had to be back in [place] by noon for another ride appointment that was previously scheduled. [employer] charges $1.60 a mile and then $10 for the pick-up. With [facility] being about 35 miles from the hospital, this worker estimated the cost to be around $66 and [employer] stated that sounded about right. workers' compensation mediator notified the pt that she would be responsible for the ride payment and she was in agreement. workers' compensation mediator notified Elizabeth and Felicia at [facility] in [place] that pt would be arriving at their facility around 11-11:30 am with [employer] transportation. workers' compensation mediator also discussed The Important Message from Medicare form with the pt and the discharge appeal process. Pt is pleased with her discharge plan and has no concerns. Social work to follow-up as needed.
--- NOTE | 2024-01-21 13:06 | PC.NURSE ---
Called Micah Valle 2 more times to give nurse to nurse....no answer all 3 times. Renu FAITH BSN
== END 2024-01-21 10:27 | DRG 580 ==
PROVIDERS: Surgery; Admitting Provider Surgery; PCP Family Medicine; Visit Provider Surgery
PROC: 0HTV0ZZ Resection of Bilateral Breast, Open Approach (ICD-10-PCS; principal; 2024-01-18 08:45)
PROC: 0HTV0ZZ Resection of Bilateral Breast, Open Approach (ICD-10-PCS; 2024-01-18 08:45)
DX: C50.811 Malignant neoplasm of overlapping sites of right female breast (principal); F33.9 Major depressive disorder, recurrent, unspecified; Z68.43 Body mass index [BMI] 50.0-59.9, adult; G89.18 Other acute postprocedural pain; E66.01 Morbid (severe) obesity due to excess calories; Z99.89 Dependence on other enabling machines and devices; Z79.631 Long term (current) use of antimetabolite agent; G47.33 Obstructive sleep apnea (adult) (pediatric); L30.9 Dermatitis, unspecified; F41.9 Anxiety disorder, unspecified; F43.10 Post-traumatic stress disorder, unspecified; F42.3 Hoarding disorder; J45.909 Unspecified asthma, uncomplicated
CPT/HCPCS: 01610; 36415; 38792; 64420; 64421; 76942; 85018; 88307; 88342; 88360; 97110; 97116; 97161; 97165; 97530; 97535; A9270; A9541; C9290; J0330; J0665; J0690; J1100; J1170; J1630; J1650; J1885; J2250; J2405; J2704; J3010; J7120

== ENCOUNTER 2024-03-02 14:42 | Outpatient (CLI) | payer MEDICARE, SELFPAY ==
--- OUTSIDE RECORDS SUMMARY | 2024-03-02 14:48 | XMS_ITS | Clinical Summary ---
Author Organization [employer] [facility] [employer] [facility] Address [place], [place] [address] Care Team Providers Care Instrument Lens Grinder Name Role Phone Maranda Reagan MD Primary Care Provider + Allergies Active Allergy Reactions Criticality Noted Date Comments Banana Throat Swelling/Closing High 08/26/2018 Bananas Chocolate Runny Nose 01/23/2024 Mold Shortness Of Breath High 08/26/2018 Sulfa (Sulfonamide Antibiotics) Angioedema High 07/10/2010 Throat swells Medications Medication Sig Dispensed Refills Start Date End Date Status acetaminophen 325 mg chew Chew 650 mg by mouth 4 times daily if needed. 01/21/2024 Active DULoxetine (CYMBALTA) 60 mg Delayed-release capsule Take 2 Capsules (120 mg) by mouth once daily. 01/22/2024 Active fluticasone (50 mcg per actuation) nasal solution (FLONASE) Inhale 2 Sprays into affected nostril(s) once daily if needed for Rhinitis. 01/21/2024 Active Magnesium 200 mg tab Take 2 Tablets (400 mg) by mouth once daily. 01/21/2024 Active cholecalciferol (VITAMIN D3) 1,000 unit tablet Take 2 Tablets (2,000 units) by mouth once daily. 01/21/2024 Active Active Problems Problem Noted Date Diagnosed Date Major depression, recurrent 07/16/2010 Attention deficit disorder without mention of hy peractivity 06/03/2010 ANXIETY DISORDER, NOS WITH G AD, PANIC AND OCD (Hoarding) SYMPTOMS 08/08/2009 Resolved Problems Problem Noted Date Diagnosed Date Resolved Date Depressive disorder, not elsewhere classified 06/03/20 10 07/16/2010 Encounters Date Type Department Care Team Description 01/24/2024 9:30 AM CDT [facility] [address] [address] Park Russell NP Transitional Care Visit (Admit & TCU Discharge Summary) 01/24/2024 Nurse Triage [address] [address] Park Russell NP Depression 01/24/2024 Travel 01/18/2024 Lab Requisition [facility] [phone] Reina Schroeder MD 01/18/2024 Lab Requisition [facility] [phone] Reina Schroeder MD 12/06/2023 Lab Requisition [facility] [phone] Maranda Reagan MD 12/06/2023 Lab Requisition [facility] [phone] Unknown, Doctor from Last 3 Months Social History Tobacco Use Types Packs/Day Years Used Date Smoking Tobacco: Former Cigarettes Q uit: 02/11/1998 Smokeless Tobacco: Never Tobacco Cessation:Counseling Given: Yes Alcohol Use Standard Drinks/Week Comments Not Currently 0 (1 standard drink = 0.6 oz pur e alcohol) Social Connections Answer Date Recorded Frequency of Communication with Friends and Fami ly Not on file 08/20/2021 Financial Resource Strain Answer Date R ecorded Difficulty of Paying Living Expenses Not on file 08/20/2021 Difficulty of Paying Living Expenses Not on file 08/20/2021 Sex and Gender Information Value Date Recorded Sex Assigned at Not on file Gender Identity Not on file Sexual Orientation Not on file Obstetrics History Last Filed Vital Signs Vital Sign Reading Time Taken Comments Blood Pressure 138/80 04/22/2020 9:17 AM CDT Pulse 100 04/22/2020 9:17 AM CDT Temperature 37.4 ??C (99.3 ??F) 02/12/2020 3 :36 PM CDT Respiratory Rate 20 04/22/2020 9:17 AM CDT Oxygen Saturation 96% 04/22/2020 9:1 7 AM CDT Inhaled Oxygen Concentration - - Weight 135.4 kg (298 lb 6.4 oz) 04/22/2020 9:17 AM CDT Pt weighed with shoes on. Height - - Body Mass Index - - Plan of Treatment Health Maintenance Due Date Last Done Comments Tdap 1967 Depression screening for age 12+ 1968 BMI (ht and wt on same day) for age 18+ 1974 Hepatitis C screening for age 18-79 1974 Tetanus booster 1976 Colonoscopy through age 75 2001 Lipids for age 45-75 2001 Mammogram for age 45-75 2001 Zoster (shingles) series for age 50+ (1 of 2) 2006 DEXA/DXA scan for age 65+ 2021 Medicare Wellness for age 65+ 2021 Pneumococcal series for age 65+ (1 of 1 - PCV) 2021 COVID-19 vaccine series (4 - 2022-24 season) 2023 08/11/2023, 12/17/2020, 11/19/2020 Influenza for age 65+ 04/23/2024 Procedures Procedure Name Priority Date/Time Associated Diagnosis Comments LAB TRACKING EVENT Routine 01/18/2024 10 :35 AM CDT PATH BREAST CORE BIOPSY Routine 01/18/2024 10:35 AM CDT LAB TRACKING EVENT Routine 12/06/2023 8: 35 AM CDT LAB TRACKING EVENT Routine 12/06/2023 8: 30 AM CDT PATH BREAST CORE BIOPSY Routine 12/06/2023 8:30 AM CDT CG HER2 BREAST Routine 12/06/2023 8:30 AM CDT CYTOGENETICS MALIGNANT TISSUE Routine 12/06/2023 8:30 AM CDT from Last 3 Months Results * LAB TRACKING EVENT (01/18/2024 10:35 AM CDT) Only the most recent of3 resultswithin the time period is included. Other (Other) Client Collect / Unknown 01/18/2024 10:35 AM CDT 01/18/2024 9:02 PM CDT Reina Schroeder MD LAB BILL ONLY [facility] [address] [place] [address], * PATH BREAST CORE BIOPSY (01/18/2024 10:35 AM CDT) Only the most recent of2 resultswithin the time period is included. Case Report Pathology Report ?Case: [id number] ? Authorizing Provider: ??Reina Schroeder MD ??Collected: ? 01/18/2024 1035 ? Ordering Location: ? [facility] ?Received: ?01/19/2024 0937 ? Pathologist: ? Juany Chavez MD ? Specimens: ?? A) - Right Breast Mastectomy ? B) - Right Axillary [place] Lymph Node 1 ? C) - Right Breast, RIGHT BREAST INFERIOR ? D) - Left Breast Mastectomy ? E) - Right Breast, RIGHT BREAST SUPERIOR ? 01/28/2024 1:15 PM CDT [facility] Amendment 01/25/2024 - Amendment issued to incorporate ancillary studies. 01/28/2024 - Amendment issued to document clip identified in left breast, following additional clinical history from Dr. Schroeder. Additional sections are submitted from the breast in the area of the clip site. Adjacent tissue shows dense fibrosis consistent with remote procedure. The diagnoses are unchanged. 01/28/2024 1:15 PM CDT [facility] Final Diagnosis A) RIGHT BREAST, MASTECTOMY: 1. 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 Size: 20 mm ?b. Margins: At least 10 mm from the surgical margins ?c. Breast Ancillary Testing: Performed on prior case ([id number]) ?Hormone Receptors: ?Estrogen receptor: Positive (99%, strong staining) ?Progesterone receptor: Positive (97%, strong staining) ?HER2 by IHC: Equivocal (2+ by manual morphometry) ? HER2 by FISH: Negative ?HER2/CEP17 ratio: 1.05 ?HER2 signals/cell: 1.84 ?CEP17 signals/cell: 1.76 ?Ki67: 13% ?d. Core biopsy site is associated with tumor 2. 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 Size: 9 mm ?b. Margins: At least 10 mm from the surgical margins ?c. Breast Ancillary Testing: Deferred to prior case ([id number]) 3. Ductal carcinoma in situ (DCIS), nuclear grade 2, Cribriform and Solid types ?a. Margins: At least 10 mm from the surgical margins ?? 4. Lobular carcinoma in situ, classic type 5. Proliferative fibrocystic change 6. Benign nipple B) RIGHT AXILLARY SENTINEL LYMPH NODE, 1, BIOPSY: 1. One benign lymph node involved by isolated tumor cells C) RIGHT BREAST, INFERIOR MARGIN, EXCISION WITH MARGIN EVALUATION: Negative for atypia and malignancy D) LEFT BREAST, MASTECTOMY: 1. Ductal carcinoma in situ (DCIS), nuclear grade 2, Cribriform and solid types ?a. Size: 5.5 mm (Upper inner quadrant), 8.0 mm (upper outer quadrant) ?b. Margins: At least 10 mm from the surgical margins 2. Breast Ancillary Testing: Performed on D18 ?a. Estrogen receptor: Positive (91-100%, strong staining by manual morphometry) 3. Atypical lobular hyperplasia (ALH) 4. Atypical ductal hyperplasia (ADH) 5. Benign nipple 6. Negative for invasive malignancy E) RIGHT BREAST, SUPERIOR MARGIN, EXCISION WITH MARGIN EVALUATION: Negative for atypia and malignancy 01/28/2024 1:15 PM CDT [facility]ATORY Amendment electronically signed by Juany Chavez MD on 01/28/2024 at 1:15 PM Amendment electronically signed by Massiel Braun MD on 01/25/2024 at 4:[address] Hdz has reviewed slide D3 and agrees with interpretation of DCIS. 01/28/2024 1:15 PM CDT [facility] Clinical Information IDC gr II and DCIS gr 2, right breast 12:00 (2 cm and 1 cm from nipple, respectively) ([id number] A,B) 01/28/2024 1:15 PM CDT [facility] Gross Description A) Received fresh, labeled with the patient's name and right breast mastectomy, is a 1860 gram, 28.1 (M-L) x 30.4 (S-I) x 4.2 (A-P) cm oriented right simple breast mastectomy specimen without attached axillary contents. There is an attached 21.7 x 10.1 cm portion of skin with a 1.1 x 1.1 x 0.4 cm everted nipple and 5.6 cm surrounding areola. No skin scars or lesions are identified. The specimen is inked: Anterior-superio r: Blue Anterior-inferio r: Red Posterior: Black The specimen is serially sectioned from lateral to medial. ??There is a 2.0 (SI) by 1.6 (ML) by 1.4 (AP)cm pink firm stellate mass, in the 12 o'clock position, 3.6 cm from the nipple. ??Within this mass is a biopsy site with clip. ??The mass is 1.2 cm deep to the skin, 1.6 cm from closest anterior/superio r margin, 4.0 cm from posterior margin and 8.6 cm from the closest anterior/inferio r margin. There is an additional 0.5 (SI) x 0.4 (ML) x 0.3 (AP)cm pink rubbery well-circumscrib ed nodule, in the 12 o'clock position, 1.5 cm from nipple. ??Within this nodule no definitive clip is identified. The mass and nodule are 1.4 cm apart with soft yellow adipose tissue in between. The remaining cut surfaces consist of 90% yellow, lobulated adipose tissue and greenberg 10% fibrous tissue. No lymph nodes are identified grossly. Switch Inspector sections are submitted: 1. ??Nipple, perpendicular: Nipple bed, en face 2. ??Breast tissue without inked margin, lateral bracket section 3. ??Breast mass with biopsy site and clip, without inked margins ?3. ??Entire breast mass spanning 2.0 (SI) cm in greatest dimension with clip 4. ??Breast mass without inked margins ? 3-4. ??Entire breast mass spanning 1.6 (ML)cm in second greatest dimension 5. ??Breast tissue without inked margins, medial bracket section 6. ??Breast tissue with closest anterior/superio r margin, superior bracket section 7. ??Breast tissue with skin, inferior bracket section 8. ??Breast tissue without inked margins, posterior bracket section 9. ??Breast tissue with skin, anterior bracket section 10. ??Breast tissue without inked margin, tissue between mass and nodule 11. ??Entire nodule without inked margins, trisected 12. ??Breast tissue with closest anterior/inferio r margin to mass 13. ??Breast tissue with closest posterior margin to mass 14. ??Upper outer quadrant without inked margins 15. ??Lower outer quadrant without inked margins 16. ??Upper inner quadrant without inked margins 17. ??Lower inner quadrant without inked margins Annotated photos attached Time removed from patient: 1040 Time placed in formalin: 11:00 Date removed and placed in formalin: 01/18/2024 Cold ischemic time < 60 minutes. The specimen was fixed in formalin for a minimum of 6 hours and not longer than 72 hours. TRS 01/19/2024 At the 12 o'clock position and approximately 1 cm from nipple, there is an area of greenberg-white indurated mass with a coil shaped biopsy clip embedded, measuring 0.5 AP x 0.4 SI x 0.4 ML cm. ??The mass is 5.2 cm from the anterior-inferio r margin, 8 cm from the posterior margin, 3.2 cm from the anterior superior margin. ?? Additional customer assistance representative sections are submitted as follows: 18-19. ??Greenberg-white indurated mass with coiled biopsy clip site, submitted entirely 20. ??Nearest anterior superior margin to mass/coiled biopsy clip site JA 01/20/2024 ? B) Received fresh labeled with the patient's name and right axillary sentinel lymph node #1, is a 3 x 2.1 x 0.9 cm aggregate of yellow adipose tissue. ??The specimen is dissected for lymph nodes. ??There is a 1.7 x 1.2 x 0.7 cm lymph node identified. ??The lymph node is serially sectioned and entirely submitted on 1 danilo for frozen section. ??The lymph node is entirely submitted in 1 cassette after frozen section. Time removed from patient: 1130 Time placed in formalin: 1145 Date removed and placed in formalin: 01/18/2024 Cold ischemic time < 60 minutes. The specimen was fixed in formalin for a minimum of 6 hours and not longer than 72 hours. C) Received in formalin labeled with the patient's name and right breast inferior, is a 275 g, 32.1 x 6.2 x 3.1 cm yellow-pink fibrofatty breast fragment with attached 30.0 x 5.0 cm greenberg strip of skin. ??On serial section, 90% of the specimen is yellow adipose tissue and the remaining 10% is pink fibrous tissue. ??No mass lesions identified grossly. ??Switch Inspector sections are submitted in 2 cassettes. Time removed from patient: 1035 Time placed in formalin: 1035 Date removed and placed in formalin: 01/18/2024 Cold ischemic time < 60 minutes. The specimen was fixed in formalin for a minimum of 6 hours and not longer than 72 hours. TRS 01/19/2024 D) Received fresh, labeled with the patient's name and left breast mastectomy, is a 2245 gram, 34.8 (M-L) x 30.4 (S-I) x 4.7 (A-P) cm oriented left simple breast mastectomy specimen without attached axillary contents. There is an attached 32 x 27.2 cm portion of skin with a 1.2 x 1.2 x 0.6 cm everted nipple and 7.0 cm surrounding areola. No skin scars or lesions are identified. The specimen is inked: Anterior-superio r: Blue Anterior-inferio r: Red Posterior: Black The specimen is serially sectioned from medial to lateral. ??On section 90% of the specimen is yellow adipose tissue and remaining 10% is pink fibrous tissue. ??No lesions are identified grossly Switch Inspector sections are submitted: 1. ??Nipple, perpendicular: Nipple bed, en face 2-3. ??Upper inner quadrant without inked margins 4-5. ??Lower inner quadrant without inked margins 6-7. ??Upper outer quadrant without inked margins 8-9. ??Lower outer quadrant without inked margins Time removed from patient: 1221 Time placed in formalin: 1235 Date removed and placed in formalin: 01/18/2024 Cold ischemic time < 60 minutes. The specimen was fixed in formalin for a minimum of 6 hours and not longer than 72 hours. TRS 01/19/2024 Within the upper inner quadrant, there is an area of dense fibrous tissue with ill-defined borders, measuring 4.2 AP x 4.0 SI x 3.8 ML cm. ??The dense fibrous tissue is 3.7 cm from the posterior margin, 6.2 cm from the anterior-inferio r margin, and is 12 cm from the anterior inferior margin. ?? Within the upper outer quadrant and approximately 7 cm from the nipple, there is a well-circumscrib ed greenberg-white rubbery nodule present, measuring 0.4 AP x 0.4 SI x 0.3 ML cm. ??The nodule is 8 cm from the anterior superior margin, 9 cm from the posterior margin, and is 15 cm from the anterior-inferio r margin. Within the upper outer quadrant and approximately 8 cm from the nipple, there is a greenberg-white indurated lesion present, measuring 0.6 AP x 0.6 SI x 0.3 ML cm. ??The lesion is 3 cm from the anterior superior margin, 4.5 cm from the posterior margin, and is 13.5 cm from the anterior inferior margin. An annotated image is uploaded and additional customer assistance representative sections are submitted as follows: 10. ??Dense fibrous tissue within upper inner quadrant (anterior edge inked orange) 11-13. ??Dense fibrous tissue within the upper inner quadrant, submitted sequentially from superior to inferior, spanning 4.2 cm (superior edge is inked green; anterior edge is inked orange) 14. ??Dense fibrous tissue within upper inner quadrant (anterior edge inked orange) anterior Note: #10, #11-13, and #14 are submitted sequentially from anterior to posterior, spanning 5.5 cm. 15. ??Posterior margin nearest area of dense fibrous tissue within upper inner quadrant 16. ??Well-circumscr ibed rubbery nodule within upper outer quadrant, 7 cm FN 17. ??Anterior superior margin closest to rubbery nodule 18. ??Greenberg-white indurated lesion within the upper outer quadrant, 8 cm FN 19. ??Anterior-super ior margin closest to greenberg-white indurated lesion JAL 01/20/2024 ?? Specimen is subsequently x-rayed in the lab, and further sectioned to disclose a biopsy clip in the upper outer quadrant associated with dense white fibrous tissue, not forming a discrete mass. ??Photographs of the biopsy clip and dense fibrous tissue are uploaded to the case. Switch Inspector dense fibrous tissue (no margin assessment) around the biopsy clip are submitted in cassettes 20-22. LDW 01/27/2024 ?? E) Received in formalin labeled with the patient's name and right breast superior, is a 220 g, 28.5 x 9.5 x 2.4 cm yellow-pink fibrofatty breast fragment with attached 27.0 x 9.5 cm greenberg strip of skin. ??Upon serial section, 90% of the specimen is yellow adipose tissue and the remaining 10% is pink fibrous tissue. No mass lesions are identified grossly. Switch Inspector sections are submitted in 2 cassettes. Time removed from patient: 1035 Time placed in formalin: 1035 Date removed and placed in formalin: 01/18/2024 Cold ischemic time < 60 minutes. The specimen was fixed in formalin for a minimum of 6 hours and not longer than 72 hours. 01/28/2024 1:15 PM CDT [facility] Intraoperative Consultation A) RIGHT BREAST, MASTECTOMY, INTRAOPERATIVE CONSULTATION (Gross Evaluation Only): 1. Tumor with biopsy site and clip grossly identified 2. Second clip (DCIS) not definitively identified 3. Margins are grossly negative by greater than 10 mm from all margins 4. Weight is 1860 g Massiel Braun MD, 01/18/2024 11:00 AM B) RIGHT AXILLARY SENTINEL LYMPH NODE #1, EXCISION WITH FROZEN SECTION(S): [Number of frozen section blocks prepared: 1] 1. One lymph node, negative for metastatic malignancy Massiel Braun MD, 01/18/2024 11:45 AM D) LEFT BREAST, MASTECTOMY, INTRAOPERATIVE CONSULTATION (Gross Evaluation Only): 1. No grossly concerning findings 2. Weight is 2245 g Massiel Braun MD, 01/18/2024 12:35 PM Intraoperative consultation, which may have included frozen section preparation, gross specimen examination, and/or cytology touch imprints/smears, was performed by a pathologist during the surgical procedure. ??This testing was performed at: [address] [place] [address] 01/28/2024 1:15 PM CDT [facility] Microscopic Description The final diagnosis is based on microscopic examination of appropriate sections of all specimens. CKAE1/AE3 is performed on block B1 and is positive for isolated tumor cells. 01/28/2024 1:15 PM CDT [facility] SYNOPTIC REPORTING INVASIVE CARCINOMA OF THE BREAST: Resection INVASIVE CARCINOMA OF THE BREAST: RESECTION - A, B, C, E 8th Edition - Protocol posted: 05/12/2023 SPECIMEN ?? Procedure: ?Total mastectomy ?? Specimen Laterality: ?Right TUMOR ?? Tumor Site: ?Clock position ?? : ?12 o'clock Histologic Type: ?Invasive carcinoma of no special type (ductal) Histologic Grade ([place] Histologic Score): ? Glandular (Acinar) / Tubular Differentiation: ?Score 3 ?? Nuclear Pleomorphism: ?Score 2 ?? Mitotic Rate: ?Score 1 ?? Overall Grade: ?Grade 2 (scores of 6 or 7) Tumor Size: ?Greatest dimension of largest invasive focus (Millimeters): 20 mm Tumor Focality: ?Multiple foci of invasive carcinoma ?? Number of Foci: ?2 (20 mm, 9 mm) Ductal Carcinoma In Situ (DCIS): ?Present ?? : ?Negative for extensive intraductal component (EIC) ?? Architectural Patterns: ?Cribriform ?? Architectural Patterns: ?Solid ?? Nuclear Grade: ?Grade II (intermediate) ?? Necrosis: ?Not identified Lobular Carcinoma In Situ (LCIS): ?Present Lymphatic and / or Vascular Invasion: ?Present ?? : ?Extensive Dermal Lymphatic and / or Vascular Invasion: ?Not identified Microcalcificati ons: ?Present in DCIS Microcalcificati ons: ?Present in invasive carcinoma Microcalcificati ons: ?Present in non-neoplastic tissue Treatment Effect in the Breast: ?No known presurgical therapy MARGINS Margin Status for Invasive Carcinoma: ?All margins negative for invasive carcinoma ?? Distance from Invasive Carcinoma to Closest Margin: ?Greater than: 10 mm ?? Closest Margin(s) to Invasive Carcinoma: ?All margins Margin Status for DCIS: ?All margins negative for DCIS ?? Distance from DCIS to Closest Margin: ?Greater than: 10 mm ?? Closest Margin(s) to DCIS: ?All margins REGIONAL LYMPH NODES Regional Lymph Node Status: ? : ?Tumor present in regional lymph node(s) ? Number of Lymph Nodes with Macrometastases: ?0 ? Number of Lymph Nodes with Micrometastases: ?0 ? Number of Lymph Nodes with Isolated Tumor Cells: ?1 ? Size of Largest Shad Metastatic Deposit: ?0.1 mm ? Extranodal Extension: ?Not identified ?? Total Number of Lymph Nodes Examined (sentinel and non-sentinel): ?1 ?? Number of [place] Nodes Examined: ?1 pTNM CLASSIFICATION (AJCC 8th Edition) ?? Reporting of pT, pN, and (when applicable) pM categories is based on information available to the pathologist at the time the report is issued. As per the AJCC (Chapter 1, 8th Ed.) it is the managing physician? s responsibility to establish the final pathologic stage based upon all pertinent information, including but potentially not limited to this pathology report. pT Category: ?pT1c T Suffix: ?(m) pN Category: ?pN0 (i+) N Suffix: ?(sn) N Suffix: ?(f) Comment(s): ?Block for possible future ancillary testing: A4 (biopsy site present; defer to core [id number] if indicated) DCIS OF THE BREAST: Resection DCIS OF THE BREAST: RESECTION - D 8th Edition - Protocol posted: 11/12/2021 SPECIMEN ?? Procedure: ?Total mastectomy ?? Specimen Laterality: ?Left TUMOR ?? Tumor Site: ?Upper outer quadrant ?? Tumor Site: ?Upper inner quadrant ?? Histologic Type: ?Ductal carcinoma in situ ?? Size (Extent) of DCIS: ?Estimated size (extent) of DCIS is at least (Millimeters): 8 mm ?? Architectural Patterns: ?Cribriform ?? Nuclear Grade: ?Grade II (intermediate) ?? Necrosis: ?Present, focal (small foci or single cell necrosis) ?? Microcalcificati ons: ?Present in DCIS ?? Microcalcificati ons: ?Present in nonneoplastic tissue MARGINS ?? Margin Status: ?All margins negative for DCIS ? Distance from DCIS to Closest Margin: ?Greater than: 10 mm ? Closest Margin(s) to DCIS: ?All margins REGIONAL LYMPH NODES ?? Regional Lymph Node Status: ?Not applicable (no regional lymph nodes submitted or found) PATHOLOGIC STAGE CLASSIFICATION (pTNM, AJCC 8th Edition) ?? Reporting of pT, pN, and (when applicable) pM categories is based on information available to the pathologist at the time the report is issued. As per the AJCC (Chapter 1, 8th Ed.) it is the managing physician? s responsibility to establish the final pathologic stage based upon all pertinent information, including but potentially not limited to this pathology report. ?? pT Category: ?pTis (DCIS) ?? pN Category: ?pN not assigned (no nodes submitted or found) ?? Comment(s): ?Block for possible future ancillary testing: D3 (UI quadrant), D18 (UO quadrant) Breast Biomarker Reporting Template BREAST BIOMARKER REPORTING TEMPLATE - D Protocol posted: 08/04/2023 ?? Test(s) Performed: ? Estrogen Receptor (ER) Status: ?Positive (greater than 10% of cells demonstrate nuclear positivity) ? Percentage of Cells with Nuclear Positivity: ?91-100% ? Average Intensity of Staining: ?Strong ? Test Type: ?Laboratory-dev eloped test ? Primary Antibody: ?SP1 ? Scoring System: ?Mustapha ? Proportion Score: ?5 ? Intensity Score: ?3 ? Total Must[place]ha Score: ?8 ?? Cold Ischemia and Fixation Times: ?Meet requirements specified in latest version of the ASCO / CAP Guidelines ?? Testing Performed on Block Number(s): ?D18 METHODS ?? Fixative: ?Formalin ?? Image Analysis: ?Not performed ?? Comment(s): ?ER analysis was performed by manual mophometry for the Mustapha Scoring System 01/28/2024 1:15 PM CDT [facility]AT[facility] Additional Information Interpreted at [facility] - [address] [place] [address] [address] 01/28/2024 1:15 PM CDT [facility] Other (Right Breast Mastectomy) 01/18/2024 10:35 AM CDT 01/19/2024 9:37 AM CDT Specimen (specimen) (Right Axillary [place] Lymph Node 1) 01/18/2024 10:35 AM CDT 01/19/2024 9:37 AM CDT Specimen (specimen) (Right Breast) 01/18/2024 10:35 AM CDT 01/19/2024 9:41 AM CDT Specimen (specimen) (Left Breast Mastectomy) 01/18/2024 10:35 AM CDT 01/19/2024 9:41 AM CDT Specimen (specimen) (Right Breast) 01/18/2024 10:35 AM CDT 01/19/2024 9:41 AM CDT Reina Schroeder MD PATHOLOGY/[facility] [address] [place] [address], [place] * CG HER2 BREAST (12/06/2023 8:30 AM CDT) Other (Right Breast Core Ultrasound Biopsy) 12/06/2023 8:30 AM CDT 12/08/2023 11:17 AM CDT Maranda Reagan MD LABORATORY [facility] [address] [place] [address], [place] * CYTOGENETICS MALIGNANT TISSUE STUDIES (12/06/2023 8:30 AM CDT) RFR Breast cancer 12/13/2023 2:38 PM CDT [facility] TEST & RESULT SUMMARY HER2 FISH Breast: See pathology report [id number]. See comments. 12/13/2023 2:38 PM CDT [facility] _ 12/13/2023 2:38 PM CDT [facility] COMMENTS This record is used as an internal laboratory test designed for workflow purposes only. 12/13/2023 2:38 PM CDT [facility]- NTRAL LABORATORY SOURCE Right Breast Core Ultrasound Biopsy (Paraffin Slides A1 2 uns) [id number] 12/13/2023 2:38 PM CDT [facility] Other (Right Breast Core Ultrasound Biopsy) 12/06/2023 8:30 AM CDT 12/08/2023 11:17 AM CDT Maranda Reagan MD [facility] [address] [place] [address], from Last 3 Months Care Teams Instrument Lens Grinder Relationship Specialty Start Date End Date Maranda Reagan MD [address] [facility] [place] [id number] PCP - General Family Practice 10/31/21
--- NOTE | 2024-03-02 15:00 | CRLHL7_ITS ---
For Patients: As a result of the Century Cures Act, medical imaging exams and procedure reports are released immediately into your electronic medical record. You may view this report before your referring provider. If you have questions, please contact your health care provider. DXA BONE MINERAL DENSITY STUDY Reason for exam: Breast cancer. Current height (inches): 65 Weight (lbs.): 289 Menopause age: 51 Ethnicity: White 1. Have you had a previous hip or vertebral fracture? No. 2. Have you had any fractures during your adult life which did not result from significant trauma (e.g., auto accident)? Yes. 3. Did either of your parents have a hip fracture? No. 4. Do you smoke? No. 5. Have you ever taken Glucocorticoids? No. 6. Do you have rheumatoid arthritis? No. 7. Do you have secondary osteoporosis? No. 8. Do you drink 3 or more alcoholic drinks per day? No. 9. Are you being treated for osteoporosis? No. 10. Have you ever taken any of the following medications: Actonel, Evista, Fosamax, Miacalcin, Reclast, Boniva, Forteo, HRT (i.e., estrogen/hormone therapy), Protelos, Prolia, Vitamin D, Calcium, other ??? please specify. ANSWER: Yes; vitamin D. 11. Do you have any of the following medical conditions: Anorexia or bulimia, asthma or emphysema, end stage renal disease, hyperparathyroidism, any seizure disorders, cancer, inflammatory bowel diseases, hysterectomy, other ??? please specify. ANSWER: Yes; Asthma or emphysema, cancer. 12. What was your maximum height (inches)? 67. 13. Do you perform weightbearing exercise regularly? No. 14. Do you regularly consume dairy products? Yes. 15. Do you drink caffeinated beverages? No. 16. At what age did your period start? 15. 17. Are you premenopausal? No. 18. How many full-term pregnancies have you had? 1. 19. Have you ever missed your period for more than 6 months in a row (not including or menopause)? No. TECHNIQUE: Bone mineral density study was performed using the [employer]. FINDINGS: The results of the study expressed as bone mineral density (BMD) are as follows: Lumbar Spine L1, L3 to L4: BMD: 1.330 g/cm2. T-score: 2.5. Z-score: 4.5. Neck Left: BMD: 0.832 g/cm2. T-score: -0.2. Z-score: 1.5. Right: BMD: 0.812 g/cm2. T-score: -0.3. Z-score: 1.3. Total Left: BMD: 1.040 g/cm2. T-score: 0.8. Z-score: 2.2. Right: BMD: 1.114 g/cm2. T-score: 1.4. Z-score: 2.8. IMPRESSION: Normal bone density. COMPARISON: Compared with scan of 12/11/2021, the bone mineral density has increased by 6.3% at the spine and decreased by 2.8% at the hip. *Comparison exams done prior to 01/2020 were performed on different unit, [facility]. SAMANTHA LANCASTER M.D. Diagnostic Radiologist [email or web address] Transcribed: 3:[address]/Dictated by: Samantha Lancaster MD @ 03/03/2024 8:18:00 AM (Electronically Signed)
== END 2024-03-02 14:43 | disposition home or self-care (01) ==
LOC: RAD 14:43
PROVIDERS: PCP Family Medicine; Visit Provider Internal Medicine Hematology & Oncology
DX: C50.911 Malignant neoplasm of unspecified site of right female breast (principal)
CPT/HCPCS: 77080

== ENCOUNTER 2024-03-21 13:30 | Outpatient (RCR) | payer MEDICARE, SELFPAY ==
--- NOTE | 2024-02-14 14:20 | ONC.NURNOTE ---
Addendum entered by Briana Blandon RN 02/29/24 09:43: Received phone call from [employer] stating that they do not have a signature on the order for the new specimen ([id number]). They will be sending new form to fill out and fax back to them to proceed. Original Note: We received notification that [employer] was unable to report due to insufficient carcinoma present. I spoke with Dr. Bradley, pathologist at [facility]. A new slide was mailed to [employer] today.
--- NOTE | 2024-03-02 13:37 | ONC.NURNOTE ---
I called [employer] today to check on the status of [facility]'s Oncotype results. The original slide selected by the pathologist did not have a sufficient amount of carcinoma for testing, so per Dr. Bradley at [facility], a new slide was sent. [employer] said that testing was never started on the new slide because they needed a resubmission test requisition (this was faxed yesterday). This is a new process for them. Once [employer] receives the resubmission test requisition, they will begin testing. I called patient to let her know that we will need to reschedule her appointment until we have Oncotype results, likely the week of the .
--- NOTE | 2024-03-16 09:37 | ONC.NURNOTE ---
Call to patient to inform her that we have received her Oncotype report. I reviewed her score which indicates no chemotherapy benefit. Patient is aware that Dr. Mccann will go over the report in more detail at her appointment next week.
--- NOTE | 2024-05-01 13:19 | ONC.NURNOTE ---
Patient called to report that she is ready to try Anastrozole. Rx sent to pharmacy. Re-iterated the importance of taking Calcium 600 mg BID in addition to her Vit D. Patient verbalizes understanding. Patient encouraged to call with questions or concerns.
== END 2024-08-05 23:59 | disposition home or self-care (01) ==
LOC: CCIC 13:30
PROVIDERS: PCP Family Medicine; Visit Provider Internal Medicine Hematology & Oncology
DX: C50.911 Malignant neoplasm of unspecified site of right female breast (principal); Z17.0 Estrogen receptor positive status [ER+]; Z90.13 Acquired absence of bilateral breasts and nipples; I97.2 Postmastectomy lymphedema syndrome
CPT/HCPCS: 99202; 99205; 99214; 99215; G0463

== ENCOUNTER 2024-04-20 08:16 | Outpatient (CLI) | payer MEDICARE, SELFPAY ==
--- OUTSIDE RECORDS SUMMARY | 2024-04-20 08:19 | XMS_ITS | Clinical Summary ---
Author Organization [facility] Address [place], [place] [address] Care Team Providers Care Liberal Arts And Humanities Chair Name Role Phone Maranda Reagan MD Primary [...] Care Team Description 01/24/2024 9:30 AM CDT Alf [address] [address] Park Russell NP Transitional Care Visit (Admit & TCU Discharge Summary) 01/24/2024 Nurse Triage [address] [address] Park Russell NP Depression 01/24/2024 Travel from Last 3 Months Social History Tobacco [...] 12/17/2020, 11/19/2020 Influenza for age 65+ 04/23/2024 Care Teams [employer] Human[employer] Chair Relationship Specialty Start Date End Date Maranda Reagan MD [address] [place] [address] PCP - General Family Practice 10/31/21
[2024-04-20 08:50] LABS: Creatinine* 0.7 mg/dL (0.5-1.5); Estimated Glomerular Filt Rate 95 ml/min
--- NOTE | 2024-04-20 09:00 | CRLHL7_ITS ---
For Patients: As a result of the Century Cures Act, medical imaging exams and procedure reports are released immediately into your electronic medical record. You may view this report before your referring provider. If you have questions, please contact your health care provider. INDICATION: Umbilical hernia without obstruction or gangrene. TECHNIQUE: CT abdomen and pelvis acquired with 145 cc Isovue 370 IV contrast. COMPARISON: CT abdomen pelvis 01/17/2020. FINDINGS: Lower chest: Unremarkable. Liver: Unremarkable. Normal in size and attenuation. No suspicious masses. Gallbladder and bile ducts: Unremarkable. No stones or inflammation. No biliary dilatation. Pancreas: Unremarkable. No mass or inflammation. Spleen: Unremarkable. Normal in size. No masses. Adrenal glands: Unremarkable. No nodules. Kidneys: Unremarkable. No suspicious masses, stones, or hydronephrosis. GI tract: Ewuzrabs-bl-zkssz hiatal hernia. No bowel obstruction or focal inflammation. Normal appendix. Colonic diverticulosis without evidence of acute diverticulitis Vasculature: Abdominal aorta is normal in caliber. Mesenteric arteries are patent. Lymph nodes: No lymphadenopathy. Peritoneum: Mild fat stranding of the central mesenteric root with unchanged mildly prominent associated central mesenteric lymph nodes, stable compared to 2019 and compatible with mild chronic mesenteric panniculitis. Abdominal wall: Fat containing periumbilical ventral hernia. Abdominal wall defect measures 3.1 x 3.4 centimeters in transverse and craniocaudal dimensions, respectively. Hernia sac measures approximately 5.4 x 9.6 x 9.7 centimeters. No bowel containing hernia Pelvis: Small calcified uterine fibroids Bones: Unremarkable for age. IMPRESSION: 1. Large ventral paraumbilical fat containing hernia. 2. Colonic diverticulosis without evidence of acute diverticulitis. 3. Moderate/large hiatal hernia. Please note that all CT scans at this facility use dose modulation, iterative reconstruction, and/or weight-based dosing when appropriate to reduce radiation dose to as low as reasonably achievable. Dictated by Francis Tsai MD @ 04/21/2024 9:34:59 AM (Electronically Signed)
== END 2024-04-20 08:17 | disposition home or self-care (01) ==
LOC: CT 08:17
PROVIDERS: PCP Family Medicine; Visit Provider Surgery
DX: K42.9 Umbilical hernia without obstruction or gangrene (principal); K57.30 Diverticulosis of large intestine without perforation or abscess without bleeding; K44.9 Diaphragmatic hernia without obstruction or gangrene
CPT/HCPCS: 36415; 74177; 82565; Q9967

== ENCOUNTER 2024-09-29 08:52 | Outpatient (CLI) | payer MEDICARE, BC, SELFPAY | END 2024-09-29 08:53 | disposition home or self-care (01) | PROVIDERS: PCP Family Medicine; Visit Provider Family Medicine | DX: E78.5 Hyperlipidemia, unspecified (principal); E66.01 Morbid (severe) obesity due to excess calories; E55.9 Vitamin D deficiency, unspecified; F41.9 Anxiety disorder, unspecified; G47.33 Obstructive sleep apnea (adult) (pediatric); L30.8 Other specified dermatitis; Z68.43 Body mass index [BMI] 50.0-59.9, adult | CPT/HCPCS: 80053; 80061; 84443 ==

== ENCOUNTER 2024-11-07 13:00 | Outpatient (RCR) | payer MEDICARE, BC, SELFPAY ==
[2023-12-28 14:45] VITALS: BMI 50.1
--- NOTE | 2023-12-28 18:43 | OT.OPLE2 ---
OT Outpatient Lymphedema Eval* OT Outpatient Lymphedema Eval* Start: 12/28/23 14:14 Freq: Status: Active Protocol: Document 12/28/23 14:45 AMB (Rec: 12/28/23 18:43 AMB [id number]) E-signed By Tammie Mead, OTR/L, CLT, LAST WAXER OT Outpatient Evaluation Details Type Type Eval Complexity Low Insurance Information Insurance Information Insurance Information [employer] Height and Weight Height Height 165.1 cm Weight Weight 136.53 kg Weight Measurement Method Estimated by Patient BMI Body Mass Index (kg/m?) 50.1 BMI Classification Extreme Obesity Obesity Class III OT OP Lymphedema Evaluation Current Condition/Medical Diagnosis Referring Provider Dr Schroeder Treatment Diagnosis Lymphedema Risk Right Breast Cancer Date Of Onset Pending surgery Medical Contraindications Depression,Fibromyalgia, Arthritis Medical History Medical History Comments PMH (copied from medical chart , verified with patient) Depression (Acute) F32.A - Depression, unspecified (ICD-10) Weakness (Acute) R53.1 - Weakness (ICD-10) Allergic rhinitis (Acute) J30.9 - Allergic rhinitis, unspecified (ICD-10) Morbid obesity with BMI of 50. 0-59.9, adult (Acute) E66.01 - Morbid (severe) obesity due to excess calories (ICD-10) Z68.43 - Body mass index [BMI] 50.0-59.9, adult (ICD-10) Morbid obesity with body mass index (BMI) of 45.0 to 49.9 in adult (Chronic) E66.01 - Morbid (severe) obesity due to excess calories (ICD-10) Z68.42 - Body mass index [BMI] 45.0-49.9, adult (ICD-10) Osteoarthritis (Chronic) M19.90 - Unspecified osteoarthritis, unspecified site (ICD-10) Methotrexate, retirement, current use (Acute) Z79.631 - alf (current) use of antimetabolite agent ( ICD-10) Alopecia (Chronic) Uses finasteride from Dr. Redd L65.9 - Nonscarring hair loss, unspecified (ICD-10) Noncompliance (Acute) Z91.19 - Patient's noncompliance with other medical treatment and regimen (ICD-10) H/O bone density study ( Chronic 11/2021) NORMAL Z92.89 - Personal history of other medical treatment (ICD- 10) Vitamin D deficiency (Acute) E55.9 - Vitamin D deficiency, unspecified (ICD-10) Obstructive sleep apnea treated with continuous positive airway pressure (CPAP ) (Chronic) G47.33 - Obstructive sleep apnea (adult) (pediatric) (ICD -10) Z99.89 - Dependence on other enabling machines and devices (ICD-10) Multiple respiratory allergies (Chronic) J30.9 - Allergic rhinitis, unspecified (ICD-10) Major depressive disorder ( Chronic) sees therapist once a week, sees psychiatrist Dr Rey F32.9 - Major depressive disorder, single episode, unspecified (ICD-10) Heart murmur (Acute ~09/2021) sclerotic aortic valve, no stenosis R01.1 - Cardiac murmur, unspecified (ICD-10) Extrinsic asthma (Acute) J45.909 - Unspecified asthma, uncomplicated (ICD-10) Eczema (Acute 03/2021) Severe pruritic atopic dermatitis with previously steroid-induced atrophy overall under excellent control/ Dr Redd, methotrexate L30.9 - Dermatitis, unspecified (ICD-10) Anxiety (Chronic) also PTSD, hoarding, seeing counselor and psychiatrist F41.9 - Anxiety disorder, unspecified (ICD-10) Medical History (Updated 11/09 @ 10:11 by Maranda Reagan MD) Pulmonary nodule (2019) R91.1 - Solitary pulmonary nodule (ICD-10) Right shoulder pain M25.511 - Pain in right shoulder (ICD-10) Osteoarthritis M19.90 - Unspecified osteoarthritis, unspecified site (ICD-10) Morbid obesity with body mass index (BMI) of 45.0 to 49.9 in adult E66.01 - Morbid (severe) obesity due to excess calories (ICD-10) Z68.42 - Body mass index [BMI] 45.0-49.9, adult (ICD-10) Methotrexate, [employer] customer service, current use Z79.631 - watermaster (current) use of antimetabolite agent ( ICD-10) Alopecia L65.9 - Nonscarring hair loss, unspecified (ICD-10) H/O bone density study (2021) Z92.89 - Personal history of other medical treatment (ICD- 10) Surgical History Surgical History History of excision of mass ( 08/2019) Z98.890 - Other specified postprocedural states (ICD-10) History of dilation and curettage (08/2018) Z98.890 - Other specified postprocedural states (ICD-10) History of breast biopsy (2014 ) Z98.890 - Other specified postprocedural states (ICD-10) Medications Medications (Copied from medical chart, verified with patient) clobetasol 0.05% 1 applic topical BID PRN duloxetine 60 mg PO QDAY finasteride 2.5 mg (1/2 x 5 mg ) PO QDAY fluticasone propionate 50 mcg/ actuation (Flonase Allergy Relief) 2 sprays intranasal QDAY PRN folic acid 1 mg PO DAILY methotrexate sodium 20 mg (8 x 2.5 mg) PO QWEEK polyethylene glycol 3350 ( Miralax) 17 grams PO BID PRN Family History Family History of Lymphedema Comments Pt appears to have lymphedema in her LE, states she's had big feet and legs for years. Subjective Subjective Pt states she was found to have a suspicious spot on her routine mammogram, turned out it is cancer. Pt states she will be having either a lumpectomy or mastectomy, the date has not yet been set as she wants to meet with plastic surgery as if she goes with a mastectomy, she wishes to have reconstruction and she does not want implants, only use of her own tissue, so she wants to be sure she can find a surgeon that will do this for her as this is what another one of her family members did. Pt state she currently does not wear a bra as she has a size J cup and it is hard to find bras to fit. Discussed the importance of wearing bra / support following her surgery in order to reduce swelling and risk for lymphedema, which will also improve her healing, pt states she is working on finding something, her daughter is also helping her. Living Situation Current Living Situation Comments Pt lives in an independent senior apartment alone. Pt has a cleaning lady who also does her laundry one time per week . Pt also receives one meal per day in the dining room, cooks herself simple meals the rest of the day. Pt has a walk in shower with a seat, grab bars, non-slip floor and a hand held shower head. Pt is able to drive but states she will not be able to after her surgery because she has to use her arm to pull herself into her van, so she does use public transportation sometimes. Patient Difficulties Difficulties With Any Of The Following Walking,Dressing,Reaching Feet & Toes Patient Difficulties Comments Difficulties are currently related to her morbid severe, obesity. Impairments Impairments Loss of Mobility,Difficulties With ADLs Impairments Comments The loss of mobility and difficulty with ADLs is related to her obesity currently. Problem List Problem List Limited Knowledge of Lymphedema Treatment/Condition /Precautions,Limited Knowledge of Skin Care & Infection Precautions,Significant Risk For Infection For Lymphedema Related Complications,Does Not Have a HEP,Does Not Know How To Bandage For Limb Reduction, Does Not Have Appropriate Compression Garments For LT Management,Presents With Impaired Mobility/ROM,Lack Of Caregiver Support Problem List Comments Severe, morbid obesity poses increased risk for lymphedema and poor outcomes. Exercise History Does Patient Exercise Regularly No Exercise Comments Pt states they do have exercise programs in her building that she attends sometimes, she is fairly sedentary most of the day. She recently had PT to address walking and exercise which was really helpful, also had OT to address incontinence. These were provided in her building . Pain Pain No Pain Comments Pt denies pain today ROM/Strength ROM/Strength Comments Pt demonstrates full AROM and functional strength in BUE. Pt has limited mobility due to her obesity, states she can walk about a hundred feet with her 4ww. Previous Treatment Previous Treatment/Current Home Program Pt has had recent PT to address strength and conditioning and OT to address incontinence, states it was provided to her in her building. Compression History Does Patient Currently Wear Compression No During Daytime Compression During Daytime Comments Pt present to OT today in unlaced tennis shoes and no socks with obvious swelling in BLE Does Patient Currently Wear Compression No At Night Current Swelling (Location/Pitting/Texture) Pitting Scale: 0 = No pitting 1+ Tissue returns to normal almost immediately 2+ Tissue returns after 15-30 seconds 3+ Tissue returns after 1-1/2 minutes 4+ Tissue returns after 2-3 minutes N/A Tissue no longer pits due to induration Tissue texture: Soft or indurated Clinical Presentation Area Pt will be having surgery on her right breast for cancer. She will be at risk for lymphedema in her right upper quadrant, pt may need XRT, this would increase her risk. Circumferential Measurements Upper Extremity Left Upper Extremity MCP (in cm) 19.5 Palm (in cm) 20.0 Smallest Wrist Measurement (in cm) 17.8 10 cm Above Smallest Wrist Measurement 25.0 20 cm Above Smallest Wrist Measurement 29.5 30 cm Above Smallest Wrist Measurement 39.4 40 cm Above Smallest Wrist Measurement 47.5 50 cm Above Smallest Wrist Measurement 46.8 Total Girth in cm 245.5 UE Volume C 367.87 UE Volume D 592.25 UE Volume E 950.92 UE Volume F 1506.69 UE Volume G 1769.13 Upper Extremity Volume Total in cm 5,186.86 Right Upper Extremity MCP (in cm) 19.1 Palm (in cm) 20.0 Smallest Wrist Measurement (in cm) 17.5 10 cm Above Smallest Wrist Measurement 24.8 20 cm Above Smallest Wrist Measurement 29.5 30 cm Above Smallest Wrist Measurement 40.5 40 cm Above Smallest Wrist Measurement 48.0 50 cm Above Smallest Wrist Measurement 47.0 Total Girth in cm 246.4 UE Volume C 359.50 UE Volume D 588.04 UE Volume E 982.84 UE Volume F 1561.90 UE Volume G 1795.53 Upper Extremity Volume Total in cm 5,287.81 Assessment Assessment Pt presents pre-operatively for initiation of lymphedema surveillance program. Following her right sided mastectomy or lumpectomy with SLN biopsy, pt is at risk for lymphedema in her RUE / upper quadrant due to LN removal. Pt may need radiation which would add to her risk. Pt will benefit from skilled OT intervention for pt education, monitoring / surveillance in order to provide early detection / intervention to assure best positive outcomes with fewer lymphedema related complications if the need arises. Pt is severely, morbidly obese and fairly sedentary, has difficulty with walking and actually looks like she could have some LE lymphedema. Pt lives alone. Pt will be at high risk for lymphedema and will need close monitoring and support. Patient Goals Patient Goals 1. Pt will demonstrate a general understanding of the lymphatic system, s/s of lymphedema, treatment of lymphedema, implications of untreated lymphedema, s/s of infection and the correlation of infection related to lymphedema. 3 months 2. Pt will be compliant with quarterly assessments for lymphedema surveillance in order to obtain early intervention with best outcomes if needed. 12 months Treatment Plan Treatment Plan Evaluation,Edema Control, Manual Therapy,Wound Care/Scar Management,Therapeutic Exercise,Therapeutic Activities,Self-Care/Home Management,Caregiver Training, Education Other Treatment Plan OT eval pre-op, one visit 4 weeks post op and then quarterly x 12 months unless pt develops complications, then treatment will be as needed. Expected Duration 12 months Certification Certification Statement I Certify That: Therapy Services Provided, Therapy Plan Established, Therapy Plan Reviewed Certification Information Clinic ID # [id number] Provider Signature Shows Agreement With POC & Medical Necessity Physician Comment/Change Comment or Changes Physician NPI Number #
[2023-12-28 18:44] VITALS: BMI 50.1
--- NOTE | 2023-12-31 12:17 | PT.OPE ---
PT [place] [facility] Eval PT [facility] Outpatient Eval Start: 12/31/23 08:27 Freq: Status: Active Protocol: Document 12/31/23 08:32 ENM (Rec: 12/31/23 11:54 ENM [id number]) E-signed By Christina Cuellar, DPT Physical Therapy Outpatient Evaluation Insurance Information Recert Due Date 03/30/24 Insurance Name Medicare B Medical Diagnosis breast cancer Treating Diagnosis right shoulder pain, decreased shoulder ROM, impaired posture Referring MD Schroeder Subjective Subjective Patient presents to PT for pre -operative evaluation prior to bilateral mastectomy with SLND. She was diagnosed last month. Surgery will occur in the next 4 weeks but is not set yet, she will find out next week. With first biopsy was found to have infiltrating ductal carcinoma, grade 2 of 3, ER positive/ID positive/ HER2 negative. A second biopsy showed DCIS, nuclear grade 2, solid subtype. She is thinking about having a delayed reconstruction performed by [facility] in [place]. Is not sure if she will be having any other treatments at this time. She lives alone in an independent living. She had been working with PT in her building on her walking and legs. Uses a 4WW or scooter for mobility. Often sleeps in her lift recliner. Is going to reach out to [facility] to coordinate some increased services for after surgery. Does have a history for right shoulder pains on/off. PMHx: on methotrexate for eczema, mental health, obesity , bilateral leg edema, fibromyalgia Current Work Status Retired Objective Other/Pertinent Objective AROM seated: Shoulder flexion L 140 R 120 with elbow bent and pain abduction L 151 R 138 [place]ion L 123 R 118 IR L T9 R L1 ER base of skull B with pain on R when performing Posture: protracted shoulders Scapular control: good unable to assess joint mobility as patient does not often lay in supine due to knee pains Other: Patient ambulates with use of 4WW, antalgic gait pattern ,decreased knee extension B. Does have to use both arms to push self to standing Functional Test Performed & Score Pre-op SPADI: pain 34/50 disability 39/80 73/130 Assessment Assessment/Impression Patient presents to PT pre- operatively for planned Breast Cancer surgery to include mastectomy and planned SLNB with delayed reconstruction. Assessment today included baseline UE ROM, postural, and joint mobility measurements which are to be compared to measurements retaken 4 weeks post-surgery. At that time, any reduced movement, decline in function, or postural issues will be addressed with skilled care and new goals will be established. Patient does have pain and limitations in right shoulder motion at baseline. Education was given today regarding post-operative signs of infection, axillary cording, seroma formation, and home program to be performed within the first 3-4 weeks post-operatively focusing on UE mobility within surgical restrictions. Encouraged patient to continue working on LE exercises after her surgery for general fitness and to maintain gains from home health PT POC. Primary Functional Limitations some limitation in right shoulder ROM at baseline Plan of Care Rehabilitation Potential Fair Physical Therapy Goals Goals pre op 1. Pt demonstrates awareness of post-operative movement restrictions and HEP to facilitate lymphatic regeneration and reduce the risk of seroma formation, axillary web syndrome and lymphedema while ensuring shoulder joint mobility. Coordination/Communication With Referral Source Treatment Plan/Direct Interventions Ice/Cold/Vasopneumatic,Joint Mobilization,Manual Therapy, Neuromuscular Re-ed,Self-Care/ Home Management,Therapeutic Activities,Therapeutic Exercises Patient Will Be Discharged From Therapy Completion of LTG(s), Independent w/HEP Evaluation Billing Untimed Code Treatment Minutes 28 Complexity Low Certification Information Initial Certification Date 12/31/23 Ending Certification Date 03/30/24 Provider Signature Shows Agreement With POC & Medical Necessity Physician Signature & Date Requested Please Sign/Date Here Physician Comment/Change : Physician NPI Number #
[2024-02-15 15:14] VITALS: BMI 50.1
--- NOTE | 2024-02-21 11:16 | PT.OPDNX ---
PT [facility] Daily Note [facility] Daily Note Start: 02/21/24 08:25 Freq: Status: Active Protocol: Document 02/21/24 08:25 ENM (Rec: 02/21/24 10:28 ENM [id number]) E-signed By Christina Cuellar DPT PT OP Daily Progress Note Visit Information Note Type Re-Evaluation Visit Number 2 Insurance Information Recert Due Date 05/21/24 Insurance Name Medicare B Medical Diagnosis breast cancer Treating Diagnosis tissue tightness, decreased shoulder ROM, Referring MD Schroeder Subjective Subjective Patient presents to PT for post-operative evaluation after to bilateral mastectomy with SLND DOS 01/18/24. Was diagnosed with right-sided breast cancer, multifocal, invasive ductal carcinoma grade 2, ER positive MI positive and HER2 negative. They found cancer on the left side as well. Each breast weighed about 5# each. One benign lymph node involved by isolated tumor cells. Did not have pain after surgery. She was in a SNF [facility] for a week before going home. She is getting around well at home now. Has been doing her exercise classes at her home again. She is not having radiation but is waiting to hear if she will have to do chemo. She believes that they will put her on the hormone rosita. Is thinking that she will have a delayed reconstruction performed by [facility] in [place] a year from now. PMHx: on methotrexate for eczema, mental health, obesity , bilateral leg edema, fibromyalgia Pain Comments none Home Exercise Home Exercise Comments Access Code: [email or web address] URL: [email or web address] Date: 02/21/2024 Prepared by: Christina Cuellar Exercises - Supine Shoulder Flexion AAROM - 3 x daily - 7 x weekly - 10 reps - 5 seconds hold - Supine Chest Stretch with Elbows Bent - 3 x daily - 7 x weekly - 10 reps - 5 seconds hold - Standing Shoulder Flexion Full Range - 3 x daily - 7 x weekly - 10 reps - 5 seconds hold - Shoulder blade squeeze - 3 x daily - 7 x weekly - 10 reps - 5 seconds hold Objective Other/Pertinent Objective AROM seated: Shoulder flexion L 136 R 126 with elbow bent compensation abduction L 159 R 158 Palpation: no tenderness to palpation mild tissue restrictions at incisions Observation/swellin incisions present across chest from mastectomy which are healing well, has more extra tissue on lateral right incision compared to left Cording - Other: Patient ambulates with use of 4WW, antalgic gait pattern ,decreased knee extension B. Does have to use both arms to push self to standing Functional Test Performed & Score Post-op SPADI: pain 2/50 disabilty 0/80 did not answer carrying objects >10# as she has not done this yet Pre-op SPADI: pain 34/50 disability 39/80 73/130 Patient Instructed in Risks/Benefits Yes Therapeutic Exercise Therapeutic Exercise Minutes (minutes) 11 Therapeutic Exercise: To Restore - Supine Shoulder Flexion Functional Status AAROM 1x10 - Supine Chest Stretch with Elbows Bent 1x10 - Standing Shoulder Flexion Full Range 1x10 - Shoulder blade squeeze 1x10 Answered patients questions about if she can participate in fitness classes at her building. Therapist giving ok for stretching classes but to avoid UE strengthening until after 6 weeks post op gurpreet Manual Therapy Techniques Manual Therapy Minutes (minutes) 13 Manual Therapy Techniques - soft tissue mobilization and massage to B pec majors, intercostals -gentle scar mobilization and fascial mobility Treatment Minutes Untimed Code Treatment Minutes 26 Timed Code Treatment Minutes 24 Total Treatment Time 50 Billing Units Manual Therapy Units 1 Therapeutic Exercise Units 1 Re-Evaluation Units 1 Assessment/Impression Assessment/Impression Patient returns to PT for her 4 week post-operative evaluation to compare baseline pre-operative measurements to her current condition, in addition to assessing for post -operative impairments that will benefit from continuation of skilled care. Overall patient has been doing well post operatively. She currently presents with incision tightness and decreased ROM that will benefit from skilled care, including therapeutic exercise , manual therapy, neuromuscular education, self- care training and HEP training , in order to return her to her prior level of function and comfort. Plan of Care Physical Therapy Goals In 4-6 visits: 1. Restore shoulder AROM, as measured at pre-operative evaluation, after initial recovery period to improve 1 and 2-handed functional activity ability. (This will reduce during radiation therapy inflammatory phase, if needed.) 2. Restore functional scoring using SPADI assessment tool to pre-operative amounts to ensure full return to baseline function. 3. Restore full upright posture per patient perception or compared to pre-operative findings. Daily Plan of Care Continue per POC Recertification Information Initial Certification Date 12/31/23 Recertification Start Date 02/21/24 Recertification Due Date 05/21/24 Reasons to Continue Skilled Therapy Patient continues to benefit from skilled PT for return to PLOF after surgery. Rehabilitation Potential good Continued Plan of Care and Interventions 1-2x a week for 3-4 weeks Provider Signature Shows Agreement With POC & Medical Necessity Physician Comment/Change Comment or Changes Physician NPI Number #
[2024-05-18 12:34] VITALS: BMI 50.1
--- NOTE | 2024-05-18 13:47 | OT.OPLDN2 ---
OT Outpatient Lymphedema Daily Note OT Outpatient Lymphedema Daily Note* Start: 12/28/23 14:14 Freq: Status: Active Protocol: Document 05/18/24 12:34 AMB (Rec: 05/18/24 13:47 AMB [id number]) E-signed By Tammie Mead, OTR/L, CLT, PROJECT GEOLOGIST Type of Note Type of Note Type of Note Daily Note,Recert/Progress Note Visit Number 3 Comments Restrictions: No lifting over 10# and no lifting arms above her head (per patient) Insurance Information Insurance Information Insurance Information [employer] Height and Weight Height Height 165.1 cm Weight Weight 136.53 kg Weight Measurement Method Estimated by Patient BMI Body Mass Index (kg/m?) 50.1 BMI Classification Extreme Obesity Obesity Class III OT OP Lymphedema Daily/Progress Note Current Condition/Medical Diagnosis Referring Provider Dr Schroeder Date Of Onset Pending surgery Medical Contraindications Depression,Fibromyalgia, Arthritis Medical History Medical History Comments PMH (copied from medical chart , verified with patient) Depression (Acute) F32.A - Depression, unspecified (ICD-10) Weakness (Acute) R53.1 - Weakness (ICD-10) Allergic rhinitis (Acute) J30.9 - Allergic rhinitis, unspecified (ICD-10) Morbid obesity with BMI of 50. 0-59.9, adult (Acute) E66.01 - Morbid (severe) obesity due to excess calories (ICD-10) Z68.43 - Body mass index [BMI] 50.0-59.9, adult (ICD-10) Morbid obesity with body mass index (BMI) of 45.0 to 49.9 in adult (Chronic) E66.01 - Morbid (severe) obesity due to excess calories (ICD-10) Z68.42 - Body mass index [BMI] 45.0-49.9, adult (ICD-10) Osteoarthritis (Chronic) M19.90 - Unspecified osteoarthritis, unspecified site (ICD-10) Methotrexate, terminal block assembler, current use (Acute) Z79.631 - care home (current) use of antimetabolite agent ( ICD-10) Alopecia (Chronic) Uses finasteride from Dr. Redd L65.9 - Nonscarring hair loss, unspecified (ICD-10) Noncompliance (Acute) Z91.19 - Patient's noncompliance with other medical treatment and regimen (ICD-10) H/O bone density study ( Chronic 11/2021) NORMAL Z92.89 - Personal history of other medical treatment (ICD- 10) Vitamin D deficiency (Acute) E55.9 - Vitamin D deficiency, unspecified (ICD-10) Obstructive sleep apnea treated with continuous positive airway pressure (CPAP ) (Chronic) G47.33 - Obstructive sleep apnea (adult) (pediatric) (ICD -10) Z99.89 - Dependence on other enabling machines and devices (ICD-10) Multiple respiratory allergies (Chronic) J30.9 - Allergic rhinitis, unspecified (ICD-10) Major depressive disorder ( Chronic) sees therapist once a week, sees psychiatrist Dr Rey F32.9 - Major depressive disorder, single episode, unspecified (ICD-10) Heart murmur (Acute ~09/2021) sclerotic aortic valve, no stenosis R01.1 - Cardiac murmur, unspecified (ICD-10) Extrinsic asthma (Acute) J45.909 - Unspecified asthma, uncomplicated (ICD-10) Eczema (Acute 03/2021) Severe pruritic atopic dermatitis with previously steroid-induced atrophy overall under excellent control/ Dr Redd, methotrexate L30.9 - Dermatitis, unspecified (ICD-10) Anxiety (Chronic) also PTSD, hoarding, seeing counselor and psychiatrist F41.9 - Anxiety disorder, unspecified (ICD-10) Medical History (Updated 11/09 @ 10:11 by Maranda Reagan MD) Pulmonary nodule (2020) R91.1 - Solitary pulmonary nodule (ICD-10) Right shoulder pain M25.511 - Pain in right shoulder (ICD-10) Osteoarthritis M19.90 - Unspecified osteoarthritis, unspecified site (ICD-10) Morbid obesity with body mass index (BMI) of 45.0 to 49.9 in adult E66.01 - Morbid (severe) obesity due to excess calories (ICD-10) Z68.42 - Body mass index [BMI] 45.0-49.9, adult (ICD-10) Methotrexate, prison, current use Z79.631 - remote computer terminal operator (current) use of antimetabolite agent ( ICD-10) Alopecia L65.9 - Nonscarring hair loss, unspecified (ICD-10) H/O bone density study (2021) Z92.89 - Personal history of other medical treatment (ICD- 10) Surgical History Surgical History History of excision of mass ( 08/2019) Z98.890 - Other specified postprocedural states (ICD-10) History of dilation and curettage (08/2018) Z98.890 - Other specified postprocedural states (ICD-10) History of breast biopsy (2014 ) Z98.890 - Other specified postprocedural states (ICD-10) Medications Medications (Copied from medical chart, verified with patient) clobetasol 0.05% 1 applic topical BID PRN duloxetine 60 mg PO QDAY finasteride 2.5 mg (1/2 x 5 mg ) PO QDAY fluticasone propionate 50 mcg/ actuation (Flonase Allergy Relief) 2 sprays intranasal QDAY PRN folic acid 1 mg PO DAILY methotrexate sodium 20 mg (8 x 2.5 mg) PO QWEEK polyethylene glycol 3350 ( Miralax) 17 grams PO BID PRN Family History Family History of Lymphedema Comments Pt appears to have lymphedema in her LE, states she's had big feet and legs for years. Subjective Subjective Pt has a cleaning lady 1x week , no longer has a home health aide, pt states, they didn't show up and she was very frustrated so she no longer has the service. Pt states she recently got an FRANCISCO ( kitten) but this has been frustrating as well, states she wanted a male and she got a female and she is also frustrated about this as well. Pt is seeing a mental health practitioner virtually and this has been helpful. Pt has someone who administers her mental health medication as well. Pt continues with PT in her building working on LE strengthening and trying to increase her ability to walk further distances so that she can walk to her car and drive herself to appointments. Living Situation Current Living Situation Comments Pt lives in an independent senior apartment alone. Pt has a cleaning lady who also does her laundry one time per week . Pt also receives one meal per day in the dining room, cooks herself simple meals the rest of the day. Pt has a walk in shower with a seat, grab bars, non-slip floor and a hand held shower head. Pt is able to drive but states she will not be able to after her surgery because she has to use her arm to pull herself into her van, so she does use public transportation sometimes. Patient Difficulties Difficulties With Any Of The Following Walking,Dressing,Reaching Feet & Toes Patient Difficulties Comments Difficulties are currently related to her morbid severe, obesity. Impairments Impairments Loss of Mobility,Difficulties With ADLs Impairments Comments The loss of mobility and difficulty with ADLs is related to her obesity currently. Problem List Problem List Limited Knowledge of Lymphedema Treatment/Condition /Precautions,Limited Knowledge of Skin Care & Infection Precautions,Significant Risk For Infection For Lymphedema Related Complications,Does Not Have a HEP,Does Not Know How To Bandage For Limb Reduction, Does Not Have Appropriate Compression Garments For LT Management,Presents With Impaired Mobility/ROM,Lack Of Caregiver Support Problem List Comments Severe, morbid obesity poses increased risk for lymphedema and poor outcomes. Exercise History Does Patient Exercise Regularly No Exercise Comments Pt states they do have exercise programs in her building that she attends sometimes, she is fairly sedentary most of the day. She recently had PT to address walking and exercise which was really helpful, also had OT to address incontinence. These were provided in her building . Pain Pain No Pain Comments Pt denies pain today ROM/Strength ROM/Strength Comments Pt demonstrates full AROM and functional strength in BUE. Pt has limited mobility due to her obesity, states she can walk about a hundred feet with her 4ww. Previous Treatment Previous Treatment/Current Home Program Pt has had recent PT to address strength and conditioning and OT to address incontinence, states it was provided to her in her building. Compression History Does Patient Currently Wear Compression Yes During Daytime Compression During Daytime Comments Pt is wearing post-op compression binder, will be meeting with pressfitter on February 27 to address bras. Does Patient Currently Wear Compression No At Night Current Swelling (Location/Pitting/Texture) Pitting Scale: 0 = No pitting 1+ Tissue returns to normal almost immediately 2+ Tissue returns after 15-30 seconds 3+ Tissue returns after 1-1/2 minutes 4+ Tissue returns after 2-3 minutes N/A Tissue no longer pits due to induration Tissue texture: Soft or indurated Clinical Presentation Area Pt had BUE mastectomy with SLN removed from right axilla, will not need XRT. Triggering Event & Start Date of 01/18/24 BUE mastectomy with Swelling/Lymphedema 1LN removed in left axilla. Circumferential Measurements Upper Extremity Left Upper Extremity MCP (in cm) 19.5 Palm (in cm) 20.0 Smallest Wrist Measurement (in cm) 17.6 10 cm Above Smallest Wrist Measurement 24.5 20 cm Above Smallest Wrist Measurement 29.5 30 cm Above Smallest Wrist Measurement 39.4 40 cm Above Smallest Wrist Measurement 47.0 50 cm Above Smallest Wrist Measurement 47.0 Total Girth in cm 244.5 UE Volume C 355.76 UE Volume D 581.77 UE Volume E 950.92 UE Volume F 1488.93 UE Volume G 1757.86 Upper Extremity Volume Total in cm 5,135.24 Right Upper Extremity MCP (in cm) 19.0 Palm (in cm) 19.8 Smallest Wrist Measurement (in cm) 17.5 10 cm Above Smallest Wrist Measurement 24.5 20 cm Above Smallest Wrist Measurement 29.4 30 cm Above Smallest Wrist Measurement 38.9 40 cm Above Smallest Wrist Measurement 47.0 50 cm Above Smallest Wrist Measurement 47.0 Total Girth in cm 243.1 UE Volume C 354.18 UE Volume D 579.56 UE Volume E 934.03 UE Volume F 1472.31 UE Volume G 1757.86 Upper Extremity Volume Total in cm 5,097.94 Treatment Therapeutic Activity Minutes (minutes) 15 Therapeutic Activity Comments Re-assessment of BUE limb circumference. Assessment of skin condition, scar/ incisional areas and at risk right upper quadrant. Self-Care/Home Management Minutes ( 20 minutes) Self-Care/Home Management Comments Provided review of patient education regarding the lymphatic system, s/s of lymphedema, treatment options for lymphedema, implications of untreated lymphedema, infection and it's correlation to lymphedema as well as implications of untreated infection. Discussed risk reduction practices including skin care and monitoring strategies. Discussed the importance of regular exercise and healthy habits. Emphasis was placed on increasing activity. Also discussed options to wear bra without her prosthesis, states she doesn't like to have the prosthesis on all the time because they bug her but it also bugs her that the extra tissue hangs down and gets in the way when she moves her arms. Recommended bra to support this tissue to keep it out of the way and to reduce risk of fluid build up in the pendulous tissue. Total Occupational Therapy Minutes 35 Assessment Assessment Pt doing well, no s/s of lymphedema. Skin is in excellent condition. Pt needs reminders on risk reduction practices. Pt motivated to continue with surveillance program. Patient Goals Patient Goals 1. Pt will demonstrate a general understanding of the lymphatic system, s/s of lymphedema, treatment of lymphedema, implications of untreated lymphedema, s/s of infection and the correlation of infection related to lymphedema. 3 months 2. Pt will be compliant with quarterly assessments for lymphedema surveillance in order to obtain early intervention with best outcomes if needed. 12 months Treatment Plan Treatment Plan Evaluation,Edema Control, Manual Therapy,Wound Care/Scar Management,Therapeutic Exercise,Therapeutic Activities,Self-Care/Home Management,Caregiver Training, Education Other Treatment Plan OT eval pre-op, one visit 4 weeks post op and then quarterly x 12 months unless pt develops complications, then treatment will be as needed. Expected Duration 12 months Occupational Therapy Billing Units Treatment Minutes Timed Treatment Minutes 35 Total Treatment Minutes 35 Billing Units Self Care/Home Management 1 Therapeutic Activities 1 Certification Statement Certification Statement I Certify That: Therapy Services Provided, Therapy Plan Established, Therapy Plan Reviewed Recertification Information Recertification Information Initial Certification Date 12/28/23 Recertification Start Date 03/26/24 Recertification Due Date 06/25/24 Reasons to Continue Skilled Therapy Pt is participating in a lymphedema surveillance program and will benefit from continued surveillance to provide early intervention and treatment in the event that she develops lymphedema in order to achieve best outcomes as well as continued pt education on risk reduction practices. Rehabilitation Potential Good Click To Default 'Per treatment plan' Per treatment plan Continued Plan of Care and Interventions Per treatment plan Provider Signature Required Yes Provider Signature Shows Agreement With POC & Medical Necessity Physician NPI Number Write NPI# Here Physician Comment/Change Comment or Changes Physician Signature & Date Requested Please Sign/Date Here
[2024-08-22 13:14] VITALS: BMI 50.1
--- NOTE | 2024-08-22 13:43 | OT.OPLDN2 ---
OT Outpatient Lymphedema Daily Note OT Outpatient Lymphedema Daily Note* Start: 12/28/23 14:14 Freq: Status: Active Protocol: Document 08/22/24 13:14 AMB (Rec: 08/22/24 13:42 AMB [id number]) E-signed By Tammie Mead, OTR/L, CLT, BUTTON ATTACHING MACHINE OPERATOR Type of Note Type of Note Type of Note Daily Note,Recert/Progress Note Visit Number 4 Comments MC cert Due 06/25/24 Insurance Information Insurance Information Insurance Information [employer] Height and Weight Height Height 165.1 cm Weight Weight 136.53 kg Weight Measurement Method Estimated by Patient BMI Body Mass Index (kg/m?) 50.1 BMI Classification Extreme Obesity Obesity Class III OT OP Lymphedema Daily/Progress Note Current Condition/Medical Diagnosis Referring Provider Dr Schroeder Treatment Diagnosis I89.0 Lymphedema Right Breast Cancer Date Of Onset 01/18/24 Medical Contraindications Depression,Fibromyalgia, Arthritis Medical History Medical History Comments PMH (copied from medical chart , verified with patient) Depression (Acute) F32.A - Depression, unspecified (ICD-10) Weakness (Acute) R53.1 - Weakness (ICD-10) Allergic rhinitis (Acute) J30.9 - Allergic rhinitis, unspecified (ICD-10) Morbid obesity with BMI of 50. 0-59.9, adult (Acute) E66.01 - Morbid (severe) obesity due to excess calories (ICD-10) Z68.43 - Body mass index [BMI] 50.0-59.9, adult (ICD-10) Morbid obesity with body mass index (BMI) of 45.0 to 49.9 in adult (Chronic) E66.01 - Morbid (severe) obesity due to excess calories (ICD-10) Z68.42 - Body mass index [BMI] 45.0-49.9, adult (ICD-10) Osteoarthritis (Chronic) M19.90 - Unspecified osteoarthritis, unspecified site (ICD-10) Methotrexate, salvage determiner, current use (Acute) Z79.631 - prison (current) use of antimetabolite agent ( ICD-10) Alopecia (Chronic) Uses finasteride from Dr. Redd L65.9 - Nonscarring hair loss, unspecified (ICD-10) Noncompliance (Acute) Z91.19 - Patient's noncompliance with other medical treatment and regimen (ICD-10) H/O bone density study ( Chronic 11/2021) NORMAL Z92.89 - Personal history of other medical treatment (ICD- 10) Vitamin D deficiency (Acute) E55.9 - Vitamin D deficiency, unspecified (ICD-10) Obstructive sleep apnea treated with continuous positive airway pressure (CPAP ) (Chronic) G47.33 - Obstructive sleep apnea (adult) (pediatric) (ICD -10) Z99.89 - Dependence on other enabling machines and devices (ICD-10) Multiple respiratory allergies (Chronic) J30.9 - Allergic rhinitis, unspecified (ICD-10) Major depressive disorder ( Chronic) sees therapist once a week, sees psychiatrist Dr Rey F32.9 - Major depressive disorder, single episode, unspecified (ICD-10) Heart murmur (Acute ~09/2021) sclerotic aortic valve, no stenosis R01.1 - Cardiac murmur, unspecified (ICD-10) Extrinsic asthma (Acute) J45.909 - Unspecified asthma, uncomplicated (ICD-10) Eczema (Acute 03/2021) Severe pruritic atopic dermatitis with previously steroid-induced atrophy overall under excellent control/ Dr Redd, methotrexate L30.9 - Dermatitis, unspecified (ICD-10) Anxiety (Chronic) also PTSD, hoarding, seeing counselor and psychiatrist F41.9 - Anxiety disorder, unspecified (ICD-10) Medical History (Updated 11/09 @ 10:11 by Maranda Reagan MD) Pulmonary nodule (2020) R91.1 - Solitary pulmonary nodule (ICD-10) Right shoulder pain M25.511 - Pain in right shoulder (ICD-10) Osteoarthritis M19.90 - Unspecified osteoarthritis, unspecified site (ICD-10) Morbid obesity with body mass index (BMI) of 45.0 to 49.9 in adult E66.01 - Morbid (severe) obesity due to excess calories (ICD-10) Z68.42 - Body mass index [BMI] 45.0-49.9, adult (ICD-10) Methotrexate, retirement, current use Z79.631 - prison (current) use of antimetabolite agent ( ICD-10) Alopecia L65.9 - Nonscarring hair loss, unspecified (ICD-10) H/O bone density study (2021) Z92.89 - Personal history of other medical treatment (ICD- 10) Surgical History Surgical History History of excision of mass ( 08/2019) Z98.890 - Other specified postprocedural states (ICD-10) History of dilation and curettage (08/2018) Z98.890 - Other specified postprocedural states (ICD-10) History of breast biopsy (2014 ) Z98.890 - Other specified postprocedural states (ICD-10) Medications Medications (Copied from medical chart, verified with patient) clobetasol 0.05% 1 applic topical BID PRN duloxetine 60 mg PO QDAY finasteride 2.5 mg (1/2 x 5 mg ) PO QDAY fluticasone propionate 50 mcg/ actuation (Flonase Allergy Relief) 2 sprays intranasal QDAY PRN folic acid 1 mg PO DAILY methotrexate sodium 20 mg (8 x 2.5 mg) PO QWEEK polyethylene glycol 3350 ( Miralax) 17 grams PO BID PRN Family History Family History of Lymphedema Comments Pt appears to have lymphedema in her LE, states she's had big feet and legs for years. Subjective Subjective Pt feels she is doing well, no concerns about lymphedema, however, she has been having pain in her left shoulder. Test Technician recommended pt see hr doctor, discussed the risk for frozen shoulder following mastectomy. Pt states she has received her Anastrozole but she is not taking it, stats she's afraid of the precautions that come with it. Strongly encouraged that pt speak with her doctor about this as well. Pt states she has been attending exercise classes in her building 2x week once for 45 minutes and once for 55 minutes. Pt also got a cat recently, states she stays very busy with the cat, plays fetch constantly and taking care of him has increased her activity level. Living Situation Current Living Situation Comments Pt lives in an independent senior apartment alone. Pt has a cleaning lady who also does her laundry one time per week . Pt also receives one meal per day in the dining room, cooks herself simple meals the rest of the day. Pt has a walk in shower with a seat, grab bars, non-slip floor and a hand held shower head. Pt is able to drive but states she will not be able to after her surgery because she has to use her arm to pull herself into her van, so she does use public transportation sometimes. Patient Difficulties Difficulties With Any Of The Following Walking,Dressing,Reaching Feet & Toes Patient Difficulties Comments Difficulties are currently related to her morbid severe, obesity. Impairments Impairments Loss of Mobility,Difficulties With ADLs Impairments Comments The loss of mobility and difficulty with ADLs is related to her obesity currently. Problem List Problem List Limited Knowledge of Lymphedema Treatment/Condition /Precautions,Limited Knowledge of Skin Care & Infection Precautions,Significant Risk For Infection For Lymphedema Related Complications,Does Not Have a HEP,Does Not Know How To Bandage For Limb Reduction, Does Not Have Appropriate Compression Garments For LT Management,Presents With Impaired Mobility/ROM,Lack Of Caregiver Support Problem List Comments Severe, morbid obesity poses increased risk for lymphedema and poor outcomes. Exercise History Does Patient Exercise Regularly No Exercise Comments Pt states they do have exercise programs in her building that she attends sometimes, she is fairly sedentary most of the day. She recently had PT to address walking and exercise which was really helpful, also had OT to address incontinence. These were provided in her building . Pain Pain No Pain Comments Pt denies pain today ROM/Strength ROM/Strength Comments Pt demonstrates full AROM and functional strength in BUE. Pt has limited mobility due to her obesity, states she can walk about a hundred feet with her 4ww. Previous Treatment Previous Treatment/Current Home Program Pt has had recent PT to address strength and conditioning and OT to address incontinence, states it was provided to her in her building. Compression History Does Patient Currently Wear Compression Yes During Daytime Compression During Daytime Comments Pt is wearing post-op compression binder, will be meeting with machine fitter on February 27 to address bras. Does Patient Currently Wear Compression No At Night Current Swelling (Location/Pitting/Texture) Pitting Scale: 0 = No pitting 1+ Tissue returns to normal almost immediately 2+ Tissue returns after 15-30 seconds 3+ Tissue returns after 1-1/2 minutes 4+ Tissue returns after 2-3 minutes N/A Tissue no longer pits due to induration Tissue texture: Soft or indurated Clinical Presentation Area Pt had BUE mastectomy with SLN removed from right axilla, will not need XRT. Triggering Event & Start Date of 01/18/24 BUE mastectomy with Swelling/Lymphedema 1LN removed in left axilla. Circumferential Measurements Upper Extremity Left Upper Extremity MCP (in cm) 19.2 Palm (in cm) 20.0 Smallest Wrist Measurement (in cm) 17.6 10 cm Above Smallest Wrist Measurement 25.0 20 cm Above Smallest Wrist Measurement 29.5 30 cm Above Smallest Wrist Measurement 38.0 40 cm Above Smallest Wrist Measurement 46.6 50 cm Above Smallest Wrist Measurement 47.5 Total Girth in cm 243.4 Upper Extremity Volume Total in cm 5,135.24 Right Upper Extremity MCP (in cm) 19.0 Palm (in cm) 19.8 Smallest Wrist Measurement (in cm) 17.4 10 cm Above Smallest Wrist Measurement 24.1 20 cm Above Smallest Wrist Measurement 29.4 30 cm Above Smallest Wrist Measurement 37.8 40 cm Above Smallest Wrist Measurement 46.5 50 cm Above Smallest Wrist Measurement 47.5 Total Girth in cm 241.5 Upper Extremity Volume Total in cm 5,097.94 Treatment Therapeutic Activity Minutes (minutes) 15 Therapeutic Activity Comments Re-assessment of BUE limb circumference. Assessment of skin condition, scar/ incisional areas and at risk right upper quadrant. Self-Care/Home Management Minutes ( 14 minutes) Self-Care/Home Management Comments Provided review of patient education regarding the lymphatic system, s/s of lymphedema, treatment options for lymphedema, implications of untreated lymphedema, infection and it's correlation to lymphedema as well as implications of untreated infection. Discussed risk reduction practices including skin care and monitoring strategies. Discussed the importance of regular exercise and healthy habits. Emphasis was placed on increasing activity. Total Occupational Therapy Minutes 29 Assessment Assessment Pt continues to do well, she has done a nice job of increasing her activity. There are no current concerns for lymphedema at this time, however, pt is having some pain in her left shoulder, she currently has good ROM but has pain at EROM Pt was encouraged to schedule appointment with her doctor to address her shoulder pain and to discuss her Anastrazole with oncologist to address her concerns and to talk her fear of taking it. Pt will continue to benefit from quarterly assessments as pwer POC. Patient Goals Patient Goals 1. Pt will demonstrate a general understanding of the lymphatic system, s/s of lymphedema, treatment of lymphedema, implications of untreated lymphedema, s/s of infection and the correlation of infection related to lymphedema. 3 months 2. Pt will be compliant with quarterly assessments for lymphedema surveillance in order to obtain early intervention with best outcomes if needed. 12 months Treatment Plan Treatment Plan Evaluation,Edema Control, Manual Therapy,Wound Care/Scar Management,Therapeutic Exercise,Therapeutic Activities,Self-Care/Home Management,Caregiver Training, Education Other Treatment Plan OT eval pre-op, one visit 4 weeks post op and then quarterly x 12 months unless pt develops complications, then treatment will be as needed. Expected Duration 12 months Occupational Therapy Billing Units Treatment Minutes Timed Treatment Minutes 29 Total Treatment Minutes 29 Billing Units Self Care/Home Management 1 Therapeutic Activities 1 Certification Statement Certification Statement I Certify That: Therapy Services Provided, Therapy Plan Established, Therapy Plan Reviewed Recertification Information Recertification Information Initial Certification Date 12/28/23 Recertification Start Date 06/25/24 Recertification Due Date 09/23/23 Reasons to Continue Skilled Therapy Pt is participating in a lymphedema surveillance program and will benefit from continued surveillance to provide early intervention and treatment in the event that she develops lymphedema in order to achieve best outcomes as well as continued pt education on risk reduction practices. Rehabilitation Potential Good Click To Default 'Per treatment plan' Per treatment plan Continued Plan of Care and Interventions Per treatment plan Provider Signature Required Yes Provider Signature Shows Agreement With POC & Medical Necessity Physician NPI Number Write NPI# Here Physician Comment/Change Comment or Changes Physician Signature & Date Requested Please Sign/Date Here
[2024-11-07 13:04] VITALS: BMI 50.1
--- NOTE | 2024-11-07 13:53 | OT.OPLDN2 ---
OT Outpatient Lymphedema Daily Note OT Outpatient Lymphedema Daily Note* Start: 12/28/23 14:14 Freq: Status: Active Protocol: Document 11/07/24 13:04 RICHARD (Rec: 11/07/24 13:53 AMB [id number]) E-signed By Tammie Mead, OTR/L, CLT, JUV[employer]ILE [employer] OFFICER Type of Note Type of Note Type of Note Daily Note,Discharge Note, Recert/Progress Note Visit Number 5 Insurance Information Insurance Information Insurance Information [employer] Height and Weight Height Height 165.1 cm Weight Weight 136.53 kg Weight Measurement Method Estimated by Patient BMI Body Mass Index (kg/m?) 50.1 BMI Classification Extreme Obesity Obesity Class III OT OP Lymphedema Daily/Progress Note Current Condition/Medical Diagnosis Referring Provider Dr Schroeder Treatment Diagnosis I89.0 Lymphedema Right Breast Cancer Date Of Onset 01/18/24 Medical Contraindications Depression,Fibromyalgia, Arthritis Medical History Medical History Comments PMH (copied from medical chart , verified with patient) Depression (Acute) F32.A - Depression, unspecified (ICD-10) Weakness (Acute) R53.1 - Weakness (ICD-10) Allergic rhinitis (Acute) J30.9 - Allergic rhinitis, unspecified (ICD-10) Morbid obesity with BMI of 50. 0-59.9, adult (Acute) E66.01 - Morbid (severe) obesity due to excess calories (ICD-10) Z68.43 - Body mass index [BMI] 50.0-59.9, adult (ICD-10) Morbid obesity with body mass index (BMI) of 45.0 to 49.9 in adult (Chronic) E66.01 - Morbid (severe) obesity due to excess calories (ICD-10) Z68.42 - Body mass index [BMI] 45.0-49.9, adult (ICD-10) Osteoarthritis (Chronic) M19.90 - Unspecified osteoarthritis, unspecified site (ICD-10) Methotrexate, half-way, current use (Acute) Z79.631 - FPC (current) use of antimetabolite agent ( ICD-10) Alopecia (Chronic) Uses finasteride from Dr. Redd L65.9 - Nonscarring hair loss, unspecified (ICD-10) Noncompliance (Acute) Z91.19 - Patient's noncompliance with other medical treatment and regimen (ICD-10) H/O bone density study ( Chronic 11/2021) NORMAL Z92.89 - Personal history of other medical treatment (ICD- 10) Vitamin D deficiency (Acute) E55.9 - Vitamin D deficiency, unspecified (ICD-10) Obstructive sleep apnea treated with continuous positive airway pressure (CPAP ) (Chronic) G47.33 - Obstructive sleep apnea (adult) (pediatric) (ICD -10) Z99.89 - Dependence on other enabling machines and devices (ICD-10) Multiple respiratory allergies (Chronic) J30.9 - Allergic rhinitis, unspecified (ICD-10) Major depressive disorder ( Chronic) sees therapist once a week, sees psychiatrist Dr Rey F32.9 - Major depressive disorder, single episode, unspecified (ICD-10) Heart murmur (Acute ~09/2021) sclerotic aortic valve, no stenosis R01.1 - Cardiac murmur, unspecified (ICD-10) Extrinsic asthma (Acute) J45.909 - Unspecified asthma, uncomplicated (ICD-10) Eczema (Acute 03/2021) Severe pruritic atopic dermatitis with previously steroid-induced atrophy overall under excellent control/ Dr Redd, methotrexate L30.9 - Dermatitis, unspecified (ICD-10) Anxiety (Chronic) also PTSD, hoarding, seeing counselor and psychiatrist F41.9 - Anxiety disorder, unspecified (ICD-10) Medical History (Updated 11/09 @ 10:11 by Maranda Reagan MD) Pulmonary nodule (2020) R91.1 - Solitary pulmonary nodule (ICD-10) Right shoulder pain M25.511 - Pain in right shoulder (ICD-10) Osteoarthritis M19.90 - Unspecified osteoarthritis, unspecified site (ICD-10) Morbid obesity with body mass index (BMI) of 45.0 to 49.9 in adult E66.01 - Morbid (severe) obesity due to excess calories (ICD-10) Z68.42 - Body mass index [BMI] 45.0-49.9, adult (ICD-10) Methotrexate, half-way, current use Z79.631 - superintendent container terminal (current) use of antimetabolite agent ( ICD-10) Alopecia L65.9 - Nonscarring hair loss, unspecified (ICD-10) H/O bone density study (2021) Z92.89 - Personal history of other medical treatment (ICD- 10) Surgical History Surgical History History of excision of mass ( 08/2019) Z98.890 - Other specified postprocedural states (ICD-10) History of dilation and curettage (08/2018) Z98.890 - Other specified postprocedural states (ICD-10) History of breast biopsy (2014 ) Z98.890 - Other specified postprocedural states (ICD-10) Medications Medications (Copied from medical chart, verified with patient) clobetasol 0.05% 1 applic topical BID PRN duloxetine 60 mg PO QDAY finasteride 2.5 mg (1/2 x 5 mg ) PO QDAY fluticasone propionate 50 mcg/ actuation (Flonase Allergy Relief) 2 sprays intranasal QDAY PRN folic acid 1 mg PO DAILY methotrexate sodium 20 mg (8 x 2.5 mg) PO QWEEK polyethylene glycol 3350 ( Miralax) 17 grams PO BID PRN Family History Family History of Lymphedema Comments Pt appears to have lymphedema in her LE, states she's had big feet and legs for years. Subjective Subjective Pt doing very well. Pt has not noticed any concerns regarding lymphedema, she has not noticed any swelling or issues with scar tissue. Pt is tolerating her anastrozole ok . Pt has decided not to go through with the reconstruction. Pt is able to discuss s/s of lymphedema as well as risk reduction practices. Living Situation Current Living Situation Comments Pt lives in an independent senior apartment alone. Pt has a cleaning lady who also does her laundry one time per week . Pt also receives one meal per day in the dining room, cooks herself simple meals the rest of the day. Pt has a walk in shower with a seat, grab bars, non-slip floor and a hand held shower head. Pt is able to drive but states she will not be able to after her surgery because she has to use her arm to pull herself into her van, so she does use public transportation sometimes. Patient Difficulties Difficulties With Any Of The Following Walking,Dressing,Reaching Feet & Toes Patient Difficulties Comments Difficulties are currently related to her morbid severe, obesity. Impairments Impairments Loss of Mobility,Difficulties With ADLs Impairments Comments The loss of mobility and difficulty with ADLs is related to her obesity currently. Problem List Problem List Limited Knowledge of Lymphedema Treatment/Condition /Precautions,Limited Knowledge of Skin Care & Infection Precautions,Significant Risk For Infection For Lymphedema Related Complications,Does Not Have a HEP,Does Not Know How To Bandage For Limb Reduction, Does Not Have Appropriate Compression Garments For LT Management,Presents With Impaired Mobility/ROM,Lack Of Caregiver Support Problem List Comments Severe, morbid obesity poses increased risk for lymphedema and poor outcomes. Exercise History Does Patient Exercise Regularly No Exercise Comments Pt states she has been attending exercise classes on a regular basis in her apartment building, she is actually going to be leading the class soon as the person that normally does it will be moving. Pain Pain No Pain Comments Pt denies pain today ROM/Strength ROM/Strength Comments Pt demonstrates full AROM and functional strength in BUE. Pt has limited mobility due to her obesity, states she can walk about a hundred feet with her 4ww. Previous Treatment Previous Treatment/Current Home Program Pt has had recent PT to address strength and conditioning and OT to address incontinence, states it was provided to her in her building. Compression History Does Patient Currently Wear Compression Yes During Daytime Compression During Daytime Comments Pt is wearing post-op compression binder, will be meeting with coat fitter on February 27 to address bras. Does Patient Currently Wear Compression No At Night Current Swelling (Location/Pitting/Texture) Pitting Scale: 0 = No pitting 1+ Tissue returns to normal almost immediately 2+ Tissue returns after 15-30 seconds 3+ Tissue returns after 1-1/2 minutes 4+ Tissue returns after 2-3 minutes N/A Tissue no longer pits due to induration Tissue texture: Soft or indurated Clinical Presentation Area Pt had BUE mastectomy with SLN removed from right axilla, will not need XRT. Triggering Event & Start Date of 01/18/24 BUE mastectomy with Swelling/Lymphedema 1LN removed in left axilla. Circumferential Measurements Upper Extremity Left Upper Extremity MCP (in cm) 19.2 Palm (in cm) 20.0 Smallest Wrist Measurement (in cm) 17.6 10 cm Above Smallest Wrist Measurement 25.0 20 cm Above Smallest Wrist Measurement 29.5 30 cm Above Smallest Wrist Measurement 38.0 40 cm Above Smallest Wrist Measurement 46.6 50 cm Above Smallest Wrist Measurement 47.5 Total Girth in cm 243.4 Upper Extremity Volume Total in cm 5,135.24 Right Upper Extremity MCP (in cm) 19.0 Palm (in cm) 19.8 Smallest Wrist Measurement (in cm) 17.2 10 cm Above Smallest Wrist Measurement 24.0 20 cm Above Smallest Wrist Measurement 29.4 30 cm Above Smallest Wrist Measurement 37.5 40 cm Above Smallest Wrist Measurement 46.2 50 cm Above Smallest Wrist Measurement 47.2 Total Girth in cm 240.3 Upper Extremity Volume Total in cm 5,097.94 Treatment Therapeutic Activity Minutes (minutes) 12 Therapeutic Activity Comments Re-assessment of BUE limb circumference. Assessment of skin condition, scar/ incisional areas and at risk right upper quadrant. Self-Care/Home Management Minutes ( 20 minutes) Self-Care/Home Management Comments Discussed LT self-monitoring with recommendations regarding noticing subtle changes, feelings that could indicate early lymphedema. Discussed that though she doesn't currently have s/s of lymphedema, she will always be at risk for developing it, pt understands. Discussed how her excess weight really increases her risk for developing lymphedema, she understands and says she is working on it. Provided review of patient education regarding the lymphatic system , s/s of lymphedema, treatment options for lymphedema, implications of untreated lymphedema, infection and it's correlation to lymphedema as well as implications of untreated infection. Discussed risk reduction practices including skin care and monitoring strategies. Discussed the importance of regular exercise and healthy habits. Emphasis was placed on weightloss. Total Occupational Therapy Minutes 32 Assessment Assessment Pt is doing very well, there are no s/s of lymphedema in her right upper quadrant, and she denies any concerns regarding lymphedema. Pt is able to identify risk factors and risk reduction practices. Pt feels she is ready to discharge to independent monitoring program. Patient Goals Patient Goals 11/07/24 All goals have been met. 1. Pt will demonstrate a general understanding of the lymphatic system, s/s of lymphedema, treatment of lymphedema, implications of untreated lymphedema, s/s of infection and the correlation of infection related to lymphedema. 3 months 2. Pt will be compliant with quarterly assessments for lymphedema surveillance in order to obtain early intervention with best outcomes if needed. 12 months Treatment Plan Treatment Plan Evaluation,Edema Control, Manual Therapy,Wound Care/Scar Management,Therapeutic Exercise,Therapeutic Activities,Self-Care/Home Management,Caregiver Training, Education Other Treatment Plan OT eval pre-op, one visit 4 weeks post op and then quarterly x 12 months unless pt develops complications, then treatment will be as needed. Expected Duration 12 months Occupational Therapy Billing Units Treatment Minutes Timed Treatment Minutes 32 Total Treatment Minutes 32 Billing Units Self Care/Home Management 1 Therapeutic Activities 1 Certification Statement Certification Statement I Certify That: Therapy Services Provided, Therapy Plan Established, Therapy Plan Reviewed Recertification Information Recertification Information Initial Certification Date 12/28/23 Recertification Start Date 09/23/24 Recertification Due Date 12/21/24 Reasons to Continue Skilled Therapy Pt has been participating in a lymphedema surveillance program and will benefit from continued surveillance to provide early intervention and treatment in the event that she develops lymphedema in order to achieve best outcomes as well as continued pt education on risk reduction practices. Pt feels she would like to discharge from OT today, she has no concerns regarding lymphedema and feels she has a good understanding self-monitoring and understands what she would need to do if she has concerns . Rehabilitation Potential Good Click To Default 'Per treatment plan' Per treatment plan Continued Plan of Care and Interventions Per treatment plan Provider Signature Required Yes Provider Signature Shows Agreement With POC & Medical Necessity Physician NPI Number Write NPI# Here Physician Comment/Change Comment or Changes Physician Signature & Date Requested Please Sign/Date Here Discharge Note Discharge Note Discharge Summary Pt has been seen for a total of 5 visits with focus on monitoring, pt education and self-care strategies. Pt has been compliant with clinic attendance as well as recommendations. She has worked hard at increasing her activity level and is now going to work on loosing weight as she does understand that her weight increases her risk for lymphedema. Date of First Visit for Therapy 12/27/24 Date of Last Visit for Therapy 11/07/24 Interventions Provided During Treatment Evaluation,Edema Control, Manual Therapy,Therapeutic Activities,Self Care/Home Management,Education Recommendations/Reason for Discharge Met All Therapy Goals Discharge Instructions Pt will continue to work on increasing her activity level and losing weight. She will also be focused on self- monitoring for s/s of lymphedema.
== END 2024-11-07 13:57 | disposition home or self-care (01) ==
PROVIDERS: PCP Family Medicine; Visit Provider Surgery
DX: C50.919 Malignant neoplasm of unspecified site of unspecified female breast (principal); Z51.89 Encounter for other specified aftercare
CPT/HCPCS: 97110; 97140; 97161; 97164; 97165; 97530; 97535

== ENCOUNTER 2025-01-04 13:30 | Outpatient (RCR) | payer MEDICARE, BC, SELFPAY ==
--- NOTE | 2024-11-02 16:08 | ONC.NURNOTE ---
Call to patient to see how she is tolerating her Anastrozole. Overall, patient is doing well. She has noted an increase in fatigue and some intermittent hot flashes but denies a significant increase in joint pain. Patient denies need for intervention for the hot flashes at this time. Will reassess at her follow up in December.
--- NOTE | 2025-01-17 13:28 | ONC.NURNOTE ---
Pt called to follow up on scripts for Anastrozole and Calcium. [place] confirmed that her pharmacy is [facility]. Will ask Baylee Alcantara PA-C to address tomorrow. Pt saw LEFTY on 01/04/2025.
--- NOTE | 2025-03-07 13:17 | ONC.NURNOTE ---
Follow up call to patient to discuss her endocrine therapy. Patient had called [facility] a few weeks ago with possible side effects of her anastrozole. Patient was experiencing dizziness, see previous note. Patient was informed the dizziness was very unlikely to be caused by her anastrozole but she requested holding it a few weeks. Patient has now resumed the anastrozole and denies any concerns related to the anastrozole. She states she intermittently misses a few doses related to vomiting secondary to her hernia. Patient will follow up in June but was encouraged to call back sooner with questions or concerns.
== END 2025-04-02 23:59 | disposition home or self-care (01) ==
LOC: CCIC 13:30
PROVIDERS: PCP Family Medicine; Visit Provider Physician Assistant
DX: C50.911 Malignant neoplasm of unspecified site of right female breast (principal); Z17.0 Estrogen receptor positive status [ER+]; Z90.13 Acquired absence of bilateral breasts and nipples; Z79.811 Long term (current) use of aromatase inhibitors
CPT/HCPCS: 99213; 99214; G0463

== ENCOUNTER 2025-02-05 17:12 | Emergency (ER) | payer MEDICARE, BC, SELFPAY ==
[2025-02-05] VITALS (17 sets, daily range): BP systolic 138–166; BP diastolic 72–100; PULSE 70–86; RESP 15–20; TEMP 36.6; O2SAT 94–100; BMI 48.1
--- OUTSIDE RECORDS SUMMARY | 2025-02-05 17:14 | XMS_ITS | Clinical Summary ---
Author Organization [facility] Address [address] [place] [id number] Care Team Providers Care Trash Collector Supervisor Name Role Phone Maranda Reagan MD Primary Care Provider + Allergies Active Allergy Reactions Criticality Noted Date Comments Banana Throat Swelling/Closing High 08/26/2018 Bananas Chocolate Runny Nose 01/23/2024 Mold Shortness Of Breath High 08/26/2018 Sulfa (Sulfonamide Antibiotics) Angioedema High 07/10/2010 Throat swells Medications acetaminophen 325 mg chew Chew 650 mg [...] disorder, not elsewhere classified 06/03/20 10 07/16/2010 Social History Tobacco Use Types Packs/Day Years [...] Paying Living Expenses Not on file 08/20/2021 Comments No Sex and Gender Information Value Date Recorded Sex Assigned at Not on file Legal 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 Gender Identity Not on file Sexual Orientation Not on file Obstetrics History Last Filed Vital Signs Vital Sign Reading Time Taken Comments Blood Pressure 138/80 04/22/2020 9:17 AM CDT Pulse 100 04/22/2020 9:17 AM CDT Temperature 37.4 C (99.3 F) 02/12/2020 3:36 PM CDT Respiratory Rate 20 04/22/2020 9:17 [...] age 18+ 1974 Hepatitis C screening for ag e 18-79 1974 Tetanus booster 1976 Colonoscopy through age 75 2001 Lipids for age 45-75 2001 Mammogram for age 45-75 2001 Pneumococcal series for age 50+ (1 of 1 - PCV) 2006 Zoster (shingles) series for age 50+ (1 of 2) 2006 DEXA/DXA scan for age 65+ 2021 Medicare Wellness for age 65+ 2021 COVID-19 vaccine series ( season) 2024 08/11/2023, 12/17/2020, 11/19/2020 Influenza Vaccine (Season Ended) 2025 RSV vaccine for adults or (1 - 1-dose 75+ series) 2031 Hepatitis B series for 19+ Aged Out N o longer eligible based on patient's age to complete this topic Insurance [employer] MEDICARE ADVANTAGE MR Care Teams Trash Collector Supervisor Relationship Specialty Start Date End Date Maranda Reagan MD [address] [place] [address] PCP - General Family Practice 10/31/21
--- NOTE | 2025-02-05 18:13 | ED.GENADULT ---
HPI - General Adult General Chief complaint: Dizziness/Vertigo Stated complaint: Dizziness/Nasua Time Seen by Provider: 02/05/25 18:11 History of Present Illness HPI narrative: Pt reports on Wednesday, had onset of dizziness/ wobbliness. This has been ongoing since Wednesday. States has never been dizzy like this before. Room feels like it is spinning/ swaying. Did have a mild fall on Wednesday related to this dizziness and states she did hit her head nothing real major. Denies injury from this. Has a slight headache currently. Unsure if this dizziness may be caused by side effects from her cancer meds. 69-year-old woman presenting to the emergency department with concern of dizziness also known as wobbliness. Began about 3 days ago. Does not sound as though this is the 1st time this has occurred. She recalls sitting up in bed in feeling woozy and needing to fall back into bed. Dizziness was more intense earlier at onset and lessened now. It is isolated to movement though and not occurring when she is still. With further questioning it sounds as though most exacerbated when rolling over in bed and I think to her left. She did have a fall and lightly struck the top part of her head in this fall a couple of days ago. No neck or back pain. No fever. No cold symptoms. No sensation palpitations or chest pain or shortness of breath. Related Data Home Medications ?Medication ?Instructions ?Recorded ?Confirmed polyethylene glycol 3350 17 gram 17 g PO BID PRN 08/11/23 01/04/25 oral powder packet (Miralax) duloxetine 60 mg capsule,delayed 120 mg PO DAILY@12 12/16/23 02/05/25 release magnesium oxide 400 mg PO DAILY 12/16/23 02/05/25 cholecalciferol (vitamin D3) 125 125 mcg PO QDAY 02/07/24 02/05/25 mcg (5,000 unit) capsule loperamide 2 mg capsule 2 mg PO Q6H PRN 02/07/24 01/04/25 (Anti-Diarrheal (loperamide)) Previous Rx's ?Medication ?Instructions ?Recorded acetaminophen 325 mg tablet 650 mg (2 x 325 mg) PO Q4H PRN 01/20/24 Pain #25 tabs fluticasone propionate 50 2 spray intranasal DAILY PRN 02/07/25 mcg/actuation nasal allergy symptoms #48 grams spray,suspension (Flonase Allergy Relief) anastrozole 1 mg tablet (Arimidex) 1 mg PO QDAY #90 tabs 01/18/25 calcium carbonate (Calcium 600) 600 mg PO BID #180 tabs 01/18/25 diazepam 5 mg tablet (Valium) 2.5 - 5 mg (0.5 - 1 x 5 mg) PO BID 02/05/25 PRN dizziness or vertigo #6 tabs meclizine 25 mg tablet 25 mg PO TID PRN dizziness or 02/05/25 vertigo #30 tabs Allergies Allergy/AdvReac Type Severity Reaction Status Date / Time Sulfa (Sulfonamide Allergy Severe Anaphylaxis Verified 01/04/25 13:33 Antibiotics) MOLD Allergy Unknown Uncoded 09/29/24 08:36 Review of Systems Status of ROS: Reports: 6 or more systems reviewed and unremarkable except as noted in History and below [facility] Medical History Invasive ductal carcinoma of breast (11/2023) ?C50.919 - Malignant neoplasm of unspecified site of unspecified female breast (ICD-10) Pulmonary nodule (2019) ?R91.1 - Solitary pulmonary nodule (ICD-10) Right shoulder pain ?M25.511 - Pain in right shoulder (ICD-10) Osteoarthritis ?M19.90 - Unspecified osteoarthritis, unspecified site (ICD-10) Morbid obesity with body mass index (BMI) of 45.0 to 49.9 in adult ?E66.01 - Morbid (severe) obesity due to excess calories (ICD-10) ?Z68.42 - Body mass index [BMI] 45.0-49.9, adult (ICD-10) Methotrexate, fdc, current use ?Z79.631 - [facility] (current) use of antimetabolite agent (ICD-10) Alopecia ?L65.9 - Nonscarring hair loss, unspecified (ICD-10) H/O bone density study (11/2021) ?Z92.89 - Personal history of other medical treatment (ICD-10) Surgical History S/P bilateral mastectomy (12/2023) ?Z90.13 - Acquired absence of bilateral breasts and nipples (ICD-10) History of excision of mass (08/2019) ?Z98.890 - Other specified postprocedural states (ICD-10) History of dilation and curettage (08/2018) ?Z98.890 - Other specified postprocedural states (ICD-10) History of breast biopsy (2014) ?Z98.890 - Other specified postprocedural states (ICD-10) Family History Mother Breast cancer, Onset Age: 60 Coronary artery disease, Onset Age: 59 Depression Father Stroke Sister Depression Daughter Depression Tung-Danlos syndrome Mast cell disorder Maternal Grandfather Diabetes Social History Narrative: , lives in independent living , 1 adult daughter, cat Goober 1 yo Does not drink alcohol stationary bike 2-3/ week chair yoga Non-smoker- quit age 42, 12 pack years What is your current living situation?: I presently have a place to live Problems where you live: no known problems Problems where you live details: n/a In the past 12 months, utilities in danger of being shut off: no In past 12 months, lack of transportation kept you from medical appts, meetings, work, or getting things needed for daily living: no In the past 12 mos, have been you worried that your food would run out before you had money to buy more?: never true In the past 12 mos, the food you bought just didn't last and you didn't have money to buy more?: never true Smoking Status: Former smoker How often do you have a drink containing alcohol: never AUDIT-C Alcohol total score: 0 Non-prescribed substance use: denies use Caffeine: Yes How often does anyone, including family, friends and others, physically hurt you: never How often does anyone, including family, friends and others, insult or talk down to you: never How often does anyone, including family, friends and others, threaten you with harm: never How often does anyone, including family, friends and others, scream or curse at you: never service: No Exam Narrative: Exam Narrative: Pleasant. NAD. Head looks atraumatic. Neck is supple nontender back nontender. Heart in regular rate and rhythm I think maybe some ectopic beats. Lungs are clear. Cranial nerves 2-12 are intact. Pupils are 3 mm and equal. Left beating nystagmus. No trauma on extremities. Mild lower extremity dependent edema. No ataxia demonstrated. No focal weakness. Const: Vital Signs, click to edit/add: Vital Signs - 24 hr 02/05/25 17:26 02/05/25 18:18 02/05/25 18:20 Temperature 97.9 F Pulse Rate 71 73 Pulse Rate [Pulse Oximeter] 80 Respiratory Rate 20 Blood Pressure 166/100 H Blood Pressure [Ri ght Upper Arm] 138/82 Pulse Oximetry 94 96 97 Oxygen Delivery Me thod Room Air 02/05/25 18:30 02/05/25 18:32 02/05/25 18:33 Temperature Pulse Rate 73 70 70 Pulse Rate [Pulse Oximeter] Respiratory Rate Blood Pressure 148/81 H Blood Pressure [Ri ght Upper Arm] Pulse Oximetry 98 98 98 Oxygen Delivery Me thod 02/05/25 18:45 02/05/25 18:47 02/05/25 19:00 Temperature Pulse Rate 71 75 86 Pulse Rate [Pulse Oximeter] Respiratory Rate 15 Blood Pressure 157/74 H Blood Pressure [Ri ght Upper Arm] Pulse Oximetry 98 100 95 Oxygen Delivery Me thod 02/05/25 19:02 02/05/25 19:15 02/05/25 19:17 Temperature Pulse Rate 75 72 76 Pulse Rate [Pulse Oximeter] Respiratory Rate 16 Blood Pressure 155/79 H 147/76 H Blood Pressure [Ri ght Upper Arm] Pulse Oximetry 98 98 97 Oxygen Delivery Me thod 02/05/25 19:30 02/05/25 19:31 02/05/25 19:45 Temperature Pulse Rate 72 70 77 Pulse Rate [Pulse Oximeter] Respiratory Rate Blood Pressure 154/79 H Blood Pressure [Ri ght Upper Arm] Pulse Oximetry 98 97 99 Oxygen Delivery Me thod 02/05/25 19:47 02/05/25 20:00 Temperature Pulse Rate 74 70 Pulse Rate [Pulse Oximeter] Respiratory Rate 17 Blood Pressure 147/72 H Blood Pressure [Ri ght Upper Arm] Pulse Oximetry 98 97 Oxygen Delivery Me thod Documenting provider has reviewed patient's vital signs: yes Course Vital Signs Vital signs: Initial Vital Signs Temperature 97.9 F 02/05/25 17:26 Temperature Source Temporal Artery Scan 02/05/25 17:26 Pulse Rate 80 02/05/25 17:26 Respiratory Rate 20 02/05/25 17:26 Blood Pressure 138/82 02/05/25 17:26 Blood Pressure Mean 100 02/05/25 17:26 Blood Pressure Position Sitting 02/05/25 17:26 Pulse Oximetry 94 02/05/25 17:26 Oxygen Delivery Method Room Air 02/05/25 17:26 Vital Signs Temperature 97.9 F 02/05/25 17:26 Pulse Rate 80 02/05/25 17:26 Respiratory Rate 20 02/05/25 17:26 Blood Pressure 138/82 02/05/25 17:26 Pulse Oximetry 94 02/05/25 17:26 Oxygen Delivery Method Room Air 02/05/25 17:26 Temperature 97.9 F 02/05/25 17:26 Pulse Rate 70 02/05/25 20:00 Respiratory Rate 17 02/05/25 20:00 Blood Pressure 147/72 H 02/05/25 19:47 Pulse Oximetry 97 02/05/25 20:00 Oxygen Delivery Method Room Air 02/05/25 17:26 Medications Administered Medications: Discontinued Medications Generic Name Dose Route Start Last Admin Trade Name Freq PRN Reason Stop Dose Admin Diazepam 5 mg 02/05/25 18:20 02/05/25 18:38 Diazepam 5 Mg Tablet PO 02/05/25 18:21 5 mg ONCE ONE Administration Medical Decision Making MDM Narrative Medical decision making narrative: She does have concerns that her chemo meds might be contributing to this feeling. I think this is more likely peripheral vertigo given reproducibility of her symptoms particularly with head rotation to the left during this exam. She also feels worse on transitioning to seated and lying positions. We found a happy middle. Reviewing medications and past medical I would check chemistries. EKG. Test dose with Valium. I do not think there is been significant injury nor symptoms otherwise consistent with stroke to prompt head imaging. Given dose of Valium. Monitored on campus monitor oximetry. No events. EKG as below. Stable vitals. On reassessment does report feeling improved with diminished symptoms Reassuring labs. She does recount how someone had told her that there are 3 crystals that might be involved. See patient discharge plan for further discussion I think your symptoms are caused by some irritation in your left ear. I would like you to start with some exercises focused on the left side; see handout. I have highlighted the one for the left side. Also prescribing Valium that you received here. This is a benzodiazepine. Can make you tired. Also meclizine. This is an antihistamine. Taken for motion sickness typically. I would like you to take it 3 times a day over the next 3-4 days if it is not too sedating. And then just as needed. If you are not improved in a week, please contact your primary care provider as physical therapy/dizzy and balance Center might be able to offer you further care Medical Records Medical records reviewed: Yes I reviewed the patient's medical records Lab Data Lab results reviewed: Yes I reviewed the patient's lab results Labs: Lab Results 02/05/25 Range/Units 18:40 WBC 8.99 (4.50-11.00) K/uL RBC 4.63 (4.00-5.20) m/uL Hgb 12.8 (12.0-16.0) gm/dL Hct 40.6 (33.0-51.0) % MCV 88 (80-100) fL MCH 28 (26-34) pg MCHC 32 (32-36) gm/dL RDW Coeff of Yoon 13.9 (11.5-15.5) % Plt Count 302 (140-440) K/uL Neut % (Auto) 68.3 (42.0-72.0) % Lymph % (Auto) 21.7 (20-44) % [place] % (Auto) 7.1 (0.0-11.0) % Eos % (Auto) 2.2 (0.0-7.0) % Baso % (Auto) 0.4 (0.0-3.0) % Neut # (Auto) 6.13 (1.7-7.0) K/uL Lymph # (Auto) 1.95 (0.90-2.90) K/uL [place] # (Auto) 0.60 (0.00-0.90) K/UL Eos # (Auto) 0.20 (0.00-0.50) K/uL Baso # (Auto) 0.04 (0.00-0.30) K/uL Abs Immat Gran (auto) 0.03 (0.00-0.30) K/uL Imm/Tot Granulo (auto) 0.3 % Sodium 140 (135-149) mmol/L Potassium 4.3 (3.6-5.1) mmol/L Chloride 102 (96-114) mmol/L Carbon Dioxide 29 (20-32) mmol/L Anion Gap 9 (7-15) mEq/L BUN 15 (7-30) mg/dL Creatinine 0.9 (0.5-1.5) mg/dL Estimated Creat Clear 48.45 Estimated GFR 70 ml/min Glucose 113 (60-115) mg/dL Calcium 9.3 (8.4-10.6) mg/dL Total Bilirubin 0.6 (0.1-1.5) mg/dL Direct Bilirubin 0.1 (0.0-0.5) mg/dL AST 25 (12-35) U/L ALT 17 (4-35) U/L Alkaline Phosphatase 103 (40-150) U/L Total Protein 7.8 (6.0-8.3) g/dL Albumin 4.2 (3.3-5.0) g/dL ECG Data Attestation: I personally reviewed and interpreted this ECG as follows: (Normal sinus rhythm at a rate of 69) Discharge Plan Discharge Clinical Impression: Benign paroxysmal positional vertigo Patient Disposition: Home, Self-Care Condition: Improved Additional Instructions: I think your symptoms are caused by some irritation in your left ear. I would like you to start with some exercises focused on the left side; see handout. I have highlighted the one for the left side. Also prescribing Valium that you received here. This is a benzodiazepine. Can make you tired. Also meclizine. This is an antihistamine. Taken for motion sickness typically. I would like you to take it 3 times a day over the next 3-4 days if it is not too sedating. And then just as needed. If you are not improved in a week, please contact your primary care provider as physical therapy/dizzy and balance Center might be able to offer you further care Prescriptions: New diazepam [Valium] 5 mg tablet 2.5 - 5 mg PO BID PRN (Reason: dizziness or vertigo) Qty: 6 0RF meclizine 25 mg tablet 25 mg PO TID PRN (Reason: dizziness or vertigo) Qty: 30 0RF No Action polyethylene glycol 3350 [Miralax] 17 gram powder in packet 17 g PO BID PRN cholecalciferol (vitamin D3) 125 mcg (5,000 unit) capsule 125 mcg PO QDAY loperamide [Anti-Diarrheal (loperamide)] 2 mg capsule 2 mg PO Q6H PRN magnesium oxide 400 mg magnesium tablet 400 mg PO DAILY duloxetine 60 mg capsule,delayed release(DR/EC) 120 mg PO DAILY@12 fluticasone propionate [Flonase Allergy Relief] 50 mcg/actuation spray,suspension 2 spray intranasal DAILY PRN (Reason: allergy symptoms) Qty: 48 8RF Rx Instructions: administer into each nostril acetaminophen 325 mg Tablet 650 mg PO Q4H PRN (Reason: Pain) Qty: 25 0RF anastrozole [Arimidex] 1 mg tablet 1 mg PO QDAY Qty: 90 3RF calcium carbonate [Calcium 600] 600 mg calcium (1,500 mg) tablet 600 mg PO BID Qty: 180 3RF Follow Up/Referrals: Maranda Reagan MD [Primary Care Provider, Family Practice] Stand Alone Forms: [facility] Info Instructions
[2025-02-05] MEDS: diazePAM 5 MG TABLET PO (18:38)
[2025-02-05 19:22] LABS: Albumin* 4.2 g/dL (3.3-5.0); Chloride* 102 mmol/L (96-114); Sodium* 140 mmol/L (135-149)
[2025-02-05 19:23] LABS: Potassium* 4.3 mmol/L (3.6-5.1)
[2025-02-05 19:25] LABS: Alanine Aminotransferase* 17 U/L (4-35); Anion Gap 9 mEq/L (7-15); Aspartate Amino Transferase* 25 U/L (12-35); Blood Urea Nitrogen* 15 mg/dL (7-30); Carbon Dioxide* 29 mmol/L (20-32); Creatinine* 0.9 mg/dL (0.5-1.5); Est. Creatinine Clearance* 48.45; Estimated Glomerular Filt Rate 70 ml/min; Total Protein* 7.8 g/dL (6.0-8.3)
[2025-02-05 19:26] LABS: Alkaline Phosphatase* 103 U/L (40-150); Bilirubin Direct* 0.1 mg/dL (0.0-0.5); Bilirubin Total* 0.6 mg/dL (0.1-1.5); Calcium* 9.3 mg/dL (8.4-10.6); Glucose* 113 mg/dL (60-115)
[2025-02-05 19:45] LABS: Basophils Absolute Auto 0.04 K/uL (0.00-0.30); Basophils Percent Auto 0.4 % (0.0-3.0); Eosinophils Percent Auto 2.2 % (0.0-7.0); Hematocrit 40.6 % (33.0-51.0); Hemoglobin* 12.8 gm/dL (12.0-16.0); Immature Granulocytes Abs Auto 0.03 K/uL (0.00-0.30); Immature Granulocytes Pct Auto 0.3 %; Lymphocytes Absolute Auto 1.95 K/uL (0.90-2.90); Lymphocytes Percent Auto 21.7 % (20-44); Mean Corpuscular HGB Conc 32 gm/dL (32-36); Mean Corpuscular Hemoglobin 28 pg (26-34); Mean Corpuscular Volume 88 fL (80-100); Monocytes Percent Auto 7.1 % (0.0-11.0); Neutrophils Absolute Auto 6.13 K/uL (1.7-7.0); Neutrophils Percent Auto 68.3 % (42.0-72.0); Platelet Count* 302 K/uL (140-440); RDW Coefficient of Variation % 13.9 % (11.5-15.5); Red Blood Count 4.63 m/uL (4.00-5.20); White Blood Count* 8.99 K/uL (4.50-11.00)
[2025-02-05 19:47] LABS: Slide Review Reflex No
== END 2025-02-05 20:06 | disposition home or self-care (01) ==
PROVIDERS: Emergency Provider Family Medicine; PCP Family Medicine
DX: H81.13 Benign paroxysmal vertigo, bilateral (principal)
CPT/HCPCS: 36415; 80048; 80076; 85025; 99284

== ENCOUNTER 2025-06-29 09:55 | Outpatient (CLI) | payer MEDICARE, BC, SELFPAY | END 2025-06-29 09:56 | disposition home or self-care (01) | LOC: NFLDREF 09:57 | PROVIDERS: PCP Family Medicine; Visit Provider Family Medicine | DX: M17.0 Bilateral primary osteoarthritis of knee (principal) | CPT/HCPCS: 80048 ==

== ENCOUNTER 2025-07-13 15:29 | Inpatient (IN) | payer MEDICARE, BC, SELFPAY ==
[2025-07-12] VITALS (25 sets, daily range): BP systolic 113–189; BP diastolic 60–116; PULSE 60–99; RESP 13–20; TEMP 36.2–36.8; O2SAT 82–100; BMI 46.0
[2025-07-12] MEDS: LACTATED RINGERS 1000 ML 1,000 ML 100 ML IV ×2 (07:40→10:47)
[2025-07-12] MEDS: SODIUM CHLORIDE 0.9 % (FLUSH) 10 ML SYRINGE IVF ×2 (07:40→15:51)
--- NOTE | 2025-07-12 07:42 | W.PM.H&PU ---
History & Physical Update History & Physical Update H&P Reviewed and patient assessed: No changes noted
--- NOTE | 2025-07-12 07:45 | SUR.PREOP ---
Patient plans to take [facility] bus home on discharge. Med Surg aware. Sports Equipment Racker consult flagged and order entered.
[2025-07-12] MEDS: BUPIVACAINE 0.25% 30 ML INJECTION (08:20)
[2025-07-12] MEDS: BUPIVACAINE LIPOSOME 133 MG/10 ML INJ INFILTRATI (08:21)
--- NOTE | 2025-07-12 10:25 | P.ANES_ITS ---
Anesthesia Charges Start Date/Time Anesthesia Start Date: 07/12/25 Anesthesia Start Time: 07:44 Stop Date/Time Anesthesia Stop Date: 07/12/25 Anesthesia Stop Time: 10:22 Coding CPT Codes CPT Codes: ANESTH SKIN EXT/PER/ATRUNK - 26430 ([id number]) P3 - PATIENT W/SEVERE SYS DISEASE, QK - SERVICE DESK MANAGER 2-4 CNCRNT ANES PROC, QX - EDITING INTERNSHIP SVC W/ MD MED DIRECTION
--- NOTE | 2025-07-12 10:25 | W.ANESCHARGE ---
Anesthesia Charges Start Date/Time Anesthesia Start Date: 07/12/25 Anesthesia Start Time: 07:44 Stop Date/Time Anesthesia Stop Date: 07/12/25 Anesthesia Stop Time: 10:22 Coding CPT Codes CPT Codes: ANESTH SKIN EXT/PER/ATRUNK - 70404 ([id number]) P3 - PATIENT W/SEVERE SYS DISEASE, QK - PROMOTIONS SPECIALIST 2-4 CNCRNT ANES PROC, QX - PLUCK SEPARATOR SVC W/ MD MED DIRECTION
[2025-07-12] MEDS: ONDANSETRON 2 MG/ML inj IVP ×2 (10:27→15:50)
--- NOTE | 2025-07-12 10:34 | P.ANES_ITS ---
Anesthesia Charges Start Date/Time Anesthesia Start Date: 07/12/25 Anesthesia Start Time: 07:44 Stop Date/Time Anesthesia Stop Date: 07/12/25 Anesthesia Stop Time: 10:22 Coding CPT Codes CPT Codes: ANESTH SKIN EXT/PER/ATRUNK - 83277 ([id number]) P3 - PATIENT W/SEVERE SYS DISEASE, QK - SWITCHGEAR REPAIRER 2-4 CNCRNT ANES PROC, QX - WILL CALL CLERK SVC W/ MD MED DIRECTION
--- NOTE | 2025-07-12 10:34 | W.ANESCHARGE ---
Anesthesia Charges Start Date/Time Anesthesia Start Date: 07/12/25 Anesthesia Start Time: 07:44 Stop Date/Time Anesthesia Stop Date: 07/12/25 Anesthesia Stop Time: 10:22 Coding CPT Codes CPT Codes: ANESTH SKIN EXT/PER/ATRUNK - 94114 ([id number]) P3 - PATIENT W/SEVERE SYS DISEASE, QK - GIFTED PROGRAM TEACHER 2-4 CNCRNT ANES PROC, QX - WASH OIL PUMP OPERATOR SVC W/ MD MED DIRECTION
--- NOTE | 2025-07-12 10:43 | SUR.PHASEI ---
Patient came into PACU on bed, first O2 saturation was in the 80s, oxygen applied by mask at 10 l/m Patient stated she was nauseous and pain level was a 5. Zofran given and then Fenantyl given. Patient awake, dressing dry and intact, delroy wrap on.
--- NOTE | 2025-07-12 11:01 | SUR.PHASEI ---
Anesthesia consulted on blood pressure. Do not treat, blood pressure will be higher when on leg. Patient meets discharge criteria from PACU
--- NOTE | 2025-07-12 11:33 | PM.GSPRC ---
Operative Note Date of procedure: 07/12/25 Pre-op diagnosis: Bilateral mastectomy scar revision Post-op diagnosis: Same Type of Procedure: Revision of bilateral mastectomy scars Indications: Patient is a 69 yo F who presented to clinic for revision of her mastectomy scars. Patient was left with large dog ears bilaterally, which has been causing discomfort and irritation form rubbing on her arms. Different treatment options were dscussed, including doing nothing vs surgical excision. Risks and benefits of surgery were reviewed, all questions addressed with patient agreeing to proceed. Procedure Description: After discussing the risks and benefits of the procedure, the patient signed informed consent.? The operative site was marked and the patient was brought to the operating room and placed on the operating table in supine position.? Care was taken to pad the patient's pressure points.?? The patient was then intubated by anesthesia.?? The operative site was then prepped and draped in the usual sterile fashion.? A time-out was then performed. Attention was first directed to the right side. On the lateral aspect of the incision there was a large amount of redundant skin and fat vs accessory breast tissue. An elliptical incision was made around the excess tissue. Dissection was carried through subcutaneous tissue with cautery. Bleeding vessels were controlled with cautery and 3-0 vicryl ties. The tissue was then removed and marked on the back table to be sent to pathology. Hemostasis was assured and the wound irrigated. Local anesthetic of 0.25% Marcaine and Exparel was instilled into the incision. The wound was then closed in layers of 2-0 Vicryl, 3-0 Vicrly and a running subcuticular stitch of 4-0 Monocryl. Incision length was measured at 22.5 cm. Steri strips were applied. On the medial aspect of the right incision a small dimple of skin was present. Patient had requested that this be removed. An elliptical incision was made around the area. Dissection was carried through subcutaneous tissue. The length of the incision measured 1 cm and was closed with a running subcuticular stitch of 4-0 Monocryl. Tissue was passed off for disposal. Steri strips were applied. Attention was then directed to the left side. On the lateral aspect of the incision there was redundant skin and fat. An elliptical incision was made around the excess tissue. Dissection was carried through subcutaneous tissue with cautery. Bleeding vessels were controlled with cautery and 3-0 vicryl ties. The tissue was then removed and marked on the back table to be sent to pathology. Hemostasis was assured and the wound irrigated. Local anesthetic of 0.25% Marcaine and Exparel was instilled into the incision. The wound was then closed in layers of 2-0 Vicryl, 3-0 Vicryl and a running subcuticular stitch of 4-0 Monocryl. Incision length was measured at 21 cm. Steri strips were applied. An HUEY wrap was placed around the patients chest to apply compression to the incisions. ? The patient was then woken and transported to the recovery area in stable condition. ? The patient tolerated the procedure well. Findings: Excess lateral skin and fat at bilateral mastectomy scars. Anesthesia: GETA Surgeon: Reina Schroeder MD Estimated blood loss (mL): 50 Additional Specimen Information: 1. Right mastectomy scar reexcised tissue 2. Left mastectomy scar reexcised tissue Condition: stable Disposition: PACU
--- NOTE | 2025-07-12 12:47 | PC.NURSE ---
no change made
[2025-07-12] MEDS: DULOXETINE 30 MG CAPSULE DR 120 MG PO (12:53)
--- NOTE | 2025-07-12 16:11 | PC.SOCIAL ---
Discharge planning: mission worker met with the pt who states that she plans to take the [employer] [facility] bus home at discharge. Pt is also being recommended for home care care home for incision checks and edema, OT and bath aide. mission worker filled out the home care packet and left it with the charge nurse for Dr. Schroeder to fill out. mission worker called the dial-a-ride number for [employer] and scheduled the pt's pick-up for tomorrow(Wednesday) at 2:20pm. If the pt is not ready for discharge tomorrow this social media director will have to cancel the pick-up. Social work to follow-up as needed.
[2025-07-13] VITALS (24 sets, daily range): BP systolic 100–155; BP diastolic 54–80; PULSE 63–104; RESP 14–20; TEMP 36.1–36.7; O2SAT 88–96
--- NOTE | 2025-07-13 06:52 | PC.NURSE ---
?End of shift:?Pt pleasant,?alert?and oriented.?VSS. Pt denies pain, though did have mild discomfort when moving upper body. Dressings C/D/I, delroy wrap in place.?Pt refused to use home?cpap, staff educated?and encouraged. Up with SBA, did not?utilize?walker?per OT note.?Pt in bed, appears to be resting, call light within reach.
--- NOTE | 2025-07-13 10:46 | PC.SOCIAL ---
Addendum entered by JACIEL Patel 07/13/25 16:18: Discharge planning: If needing to contact [employer] over the week their phone number is #[phone]. Social work to follow-up as needed. Addendum entered by JACIEL Patel 07/13/25 16:13: Discharge planning: social worker delinquency prevention scheduled [employer] [facility] to pick-up the pt on Wednesday07/14/25 at 1:15pm. social worker delinquency prevention also set-up home care services through [facility]. [facility] can start penitentiary and FOOD PHOTOGRAPHER services on Wednesday07/16/25, but will need a delay of start order for OT for at least two weeks due to the holiday and staffing next week. social worker delinquency prevention also checked with [facility] and they are both at capacity for home care next week. [facility] is the best option for this pt since they can start penitentiary and FOOD PHOTOGRAPHER right away on Wednesday07/16/25. Dr. Viveros will complete the home care orders when she is back on-site tomorrow and nursing staff will fax the finalized home care orders to [facility] at fax number #[phone]. Original Note: Discharge planning: Pt may need to go back to the OR today for a hematoma. social worker delinquency prevention cancelled pt's pick-up ride from [facility] for today at 2:20pm. Dispatch with [employer] is open tomorrow(Wednesday) from 7am-5pm. Social work to follow-up as needed.
--- NOTE | 2025-07-13 11:11 | PM.GSPN ---
Subjective Subjective Date Seen: 07/13/25 Interval history: Patient is doing well. She does complain of some pain but that is controlled. She ambulated to the bathroom. Her vital signs were stable overnight. Exam Narrative: Exam Narrative: Chest: The left surgical incision is covered with clean Steri size with no aneta-incisional ecchymosis. The right surgical incision has bleeding that soaked through the dressing and moderate to large aneta-incisional hematoma extending onto the anterior chest. Steri-Strips fell off in the middle of the incision and new dressings were placed over the incision. The chest was wrapped with an Daniel wrap and an abdominal binder was placed over the chest incisions. Const: Vital Signs, click to edit/add: Vital Signs - 24 hr 07/12/25 11:15 07/12/25 11:20 07/12/25 11:30 Temperature Pulse Rate 77 Pulse Rate [Left P ulse Oximeter] 76 Respiratory Rate 16 16 Blood Pressure 155/94 H Blood Pressure [Ri ght Arm] Blood Pressure [Ri ght Calf] 155/91 H Pulse Oximetry 82 L 98 96 Oxygen Delivery Me thod Room Air OxyMask OxyMask Oxygen Flow Rate 2 2 07/12/25 11:45 07/12/25 12:00 07/12/25 12:15 Temperature 97.7 F 97.7 F 97.7 F Pulse Rate Pulse Rate [Left P ulse Oximeter] 75 71 83 Respiratory Rate 16 16 18 Blood Pressure Blood Pressure [Ri ght Arm] Blood Pressure [Ri ght Calf] 147/84 H 143/85 H 115/81 Pulse Oximetry 96 96 96 Oxygen Delivery Me thod OxyMask OxyMask OxyMask Oxygen Flow Rate 2 2 1 07/12/25 12:30 07/12/25 13:00 07/12/25 14:00 Temperature Pulse Rate Pulse Rate [Left P ulse Oximeter] 88 84 88 Respiratory Rate 18 18 18 Blood Pressure Blood Pressure [Ri ght Arm] Blood Pressure [Ri ght Calf] 137/83 114/67 129/76 Pulse Oximetry 95 91 96 Oxygen Delivery Me thod Room Air Room Air Room Air Oxygen Flow Rate 07/12/25 15:45 07/12/25 17:00 07/12/25 20:00 Temperature 98.2 F Pulse Rate Pulse Rate [Left P ulse Oximeter] 60 82 Respiratory Rate 18 20 16 Blood Pressure Blood Pressure [Ri ght Arm] Blood Pressure [Ri ght Calf] 156/87 H 164/81 H Pulse Oximetry 95 93 94 Oxygen Delivery Me thod Room Air Room Air Room Air Oxygen Flow Rate 1 07/12/25 23:00 07/12/25 23:00 07/12/25 23:58 Temperature 97.6 F Pulse Rate Pulse Rate [Left P ulse Oximeter] 99 99 Respiratory Rate 16 16 Blood Pressure Blood Pressure [Ri ght Arm] 113/60 Blood Pressure [Ri ght Calf] Pulse Oximetry 96 96 Oxygen Delivery Me thod Room Air Room Air Oxygen Flow Rate 07/13/25 04:13 07/13/25 08:14 07/13/25 09:25 Temperature 97.3 F L 97.5 F L 97.4 F L Pulse Rate Pulse Rate [Left P ulse Oximeter] 100 100 94 Respiratory Rate 18 20 18 Blood Pressure Blood Pressure [Ri ght Arm] 118/67 123/70 126/54 L Blood Pressure [Ri ght Calf] Pulse Oximetry 94 94 96 Oxygen Delivery Me thod Room Air Room Air Room Air Oxygen Flow Rate 07/13/25 09:25 07/13/25 11:00 Temperature 97.4 F L Pulse Rate Pulse Rate [Left P ulse Oximeter] 70 Respiratory Rate 18 16 Blood Pressure Blood Pressure [Ri ght Arm] 136/56 L Blood Pressure [Ri ght Calf] Pulse Oximetry 96 96 Oxygen Delivery Me thod Room Air Room Air Oxygen Flow Rate Progress Note:A&P Assessment and plan (1) S/P scar revision: Status: Acute Assessment and Plan: 69-year-old female s/p bilateral chest scar revision POD 1 with moderately sized hematoma at the right chest incision. I discussed with the patient that she has a right chest hematoma. I recommended to bring this patient back to the operating room for hematoma evacuation. Patient's ride home today was canceled. Patient has been NPO since morning and did not have breakfast. The risks of the procedure were discussed with the patient, and she agreed to proceed.
[2025-07-13] MEDS: LIDOCAINE 1% MDV 20 ML INJECTION (12:31)
[2025-07-13] MEDS: BUPIVACAINE 0.5 %/EPI 1:200K 30 ML INJECTION (12:33)
[2025-07-13] MEDS: LACTATED RINGERS 1000 ML 1,000 ML 125 ML IV (13:00)
--- NOTE | 2025-07-13 13:18 | P.ANES_ITS ---
Anesthesia Charges Start Date/Time Anesthesia Start Date: 07/13/25 Anesthesia Start Time: 11:33 Stop Date/Time Anesthesia Stop Date: 07/13/25 Anesthesia Stop Time: 13:17 Coding CPT Codes CPT Codes: ANESTH SKIN EXT/PER/ATRUNK - 95477 ([id number]) P3 - PATIENT W/SEVERE SYS DISEASE, QK - MATERIAL REPROCESSING ASSOCIATE 2-4 CNCRNT ANES PROC, QX - CASE MANAGER SPECIALIST SVC W/ MD MED DIRECTION
--- NOTE | 2025-07-13 13:18 | W.ANESCHARGE ---
Anesthesia Charges Start Date/Time Anesthesia Start Date: 07/13/25 Anesthesia Start Time: 11:33 Stop Date/Time Anesthesia Stop Date: 07/13/25 Anesthesia Stop Time: 13:17 Coding CPT Codes CPT Codes: ANESTH SKIN EXT/PER/ATRUNK - 71832 ([id number]) P3 - PATIENT W/SEVERE SYS DISEASE, QK - SIGNAL REPAIRER 2-4 CNCRNT ANES PROC, QX - MILL WORKER SVC W/ MD MED DIRECTION
--- NOTE | 2025-07-13 13:19 | P.ANES_ITS ---
Anesthesia Charges Start Date/Time Anesthesia Start Date: 07/13/25 Anesthesia Start Time: 11:33 Stop Date/Time Anesthesia Stop Date: 07/13/25 Anesthesia Stop Time: 13:17 Coding CPT Codes CPT Codes: ANESTH SKIN EXT/PER/ATRUNK - 29177 ([id number]) QK - WELDER MANUFACTURE 2-4 CNCRNT ANES PROC, QX - GRAIN SPOUTER SVC W/ MD MED DIRECTION, P3 - PATIENT W/SEVERE SYS DISEASE
--- NOTE | 2025-07-13 13:19 | W.ANESCHARGE ---
Anesthesia Charges Start Date/Time Anesthesia Start Date: 07/13/25 Anesthesia Start Time: 11:33 Stop Date/Time Anesthesia Stop Date: 07/13/25 Anesthesia Stop Time: 13:17 Coding CPT Codes CPT Codes: ANESTH SKIN EXT/PER/ATRUNK - 72953 ([id number]) QK - LAUNDRY OPERATOR 2-4 CNCRNT ANES PROC, QX - GENERAL INTERNIST AND PHYSICIAN LEADER SVC W/ MD MED DIRECTION, P3 - PATIENT W/SEVERE SYS DISEASE
--- NOTE | 2025-07-13 13:22 | PM.GSPRC ---
Operative Note Date of procedure: 07/13/25 Pre-op diagnosis: 1. Right chest incision hematoma. 2. S/p revision of Right mastectomy incision. Post-op diagnosis: Same Type of Procedure: 1. Hematoma evacuation from the right chest incision. Indications: 69-year-old female underwent revision of bilateral mastectomy incisions yesterday. Patient was seen in follow-up today and was noted to have a moderately sized right chest incision hematoma. Hematoma evacuation was recommended in the operating room. The procedure was discussed in detail. The risks associated procedure including infection, bleeding, and the need for additional procedures were all discussed with the patient, and she agreed to proceed. Procedure Description: After discussing the risks and benefits of the procedure, the patient signed informed consent.? The operative site was marked and the patient was brought to the operating room and placed on the operating table in supine position.? Care was taken to pad the patient's pressure points.?? The patient was then intubated by anesthesia.?? The operative site was then prepped and draped in the usual sterile fashion.? A time-out was then performed. Previously placed sutures were removed with suture scissors. The entire incision was reopened on the right side. Large amount of clot was noted and evacuated with hands. A total of 600 mL of clot was evacuated. Surgical incision was then examined. There was a slow bleeding vessel in the mid inferior incision. There is no evidence of pulsatile bleeding. This was oversewn with 3-0 Vicryl suture. Other areas suspicious for bleeding were controlled with cautery. The incision was then irrigated with warm normal saline. The incision was again examined carefully for bleeding and no active bleeding was noted. A 15 round Brad drain was placed through a separate stab incision just inferior and lateral to the most lateral portion of the incision. This was secured in place with 3-0 nylon suture. The drain was placed in the incisional cavity. The incision was then closed in layers with interrupted 2-0 and 3-0 Vicryl sutures. The skin was closed with 2 running 4-0 Monocryl sutures and tied and the lateral third of the incision. Steri-Strips and sterile pressure dressings were placed over the incision. Patient's chest was wrapped with a double length 6 inch Daniel wrap. A drain sponge was placed under the drain as well. All counts were correct at the end of the case. ? The patient was then woken and transported to the recovery area in stable condition. ? The patient tolerated the procedure well. Findings: 600 mL of clot was evacuated from the incisional cavity. One area suspicious for slow bleeding was noted and oversewn. Anesthesia: EMILY Surgeon: Kajal Viveros MD Estimated blood loss (mL): 20 Condition: stable Disposition: PACU
[2025-07-13 17:07] LABS: Hemoglobin* 8.7 gm/dL (12.0-16.0)
--- NOTE | 2025-07-13 17:59 | PM.IMCN1 ---
Date of Consult Patient: [facility] Patient Consult date: 07/13/25 Requesting Physician: General Surgery Primary Care Provider: Maranda Reagan MD Consult Narrative Reason for consult: ABLA postoperatively, tachycardia Narrative: Belgica Sloan is a 69 year old female who was admitted to the hospital on 07/12/2025 for bilateral mastectomy scar revision. Today, she was seen by General Surgery and noted to have a R sided aneta-incisional hematoma. Hemoglobin 8.7 (preoperatively was 13.8). Heart rate 90-100s. No lightheadedness or dizziness, able to get up to the bathroom without symptoms this afternoon. Histories updated, Dr. Reagan is PCP. Review of Systems Status of ROS: Reports: 10 or more systems reviewed and unremarkable except as noted in History and below [facility] Medical History (Updated 07/13/25 @ 19:00 by Mounika Houston MD) Poor mobility ?Z74.09 - Other reduced mobility (ICD-10) Morbid obesity with BMI of 50.0-59.9, adult ?E66.01 - Morbid (severe) obesity due to excess calories (ICD-10) ?Z68.43 - Body mass index [BMI] 50.0-59.9, adult (ICD-10) Vitamin D deficiency ?E55.9 - Vitamin D deficiency, unspecified (ICD-10) Anxiety ?F41.9 - Anxiety disorder, unspecified (ICD-10) Eczema (03/2021) ?L30.9 - Dermatitis, unspecified (ICD-10) Extrinsic asthma ?J45.909 - Unspecified asthma, uncomplicated (ICD-10) Heart murmur (~09/2021) ?R01.1 - Cardiac murmur, unspecified (ICD-10) Major depressive disorder ?F32.9 - Major depressive disorder, single episode, unspecified (ICD-10) Obstructive sleep apnea treated with continuous positive airway pressure (CPAP) ?G47.33 - Obstructive sleep apnea (adult) (pediatric) (ICD-10) ?Z99.89 - Dependence on other enabling machines and devices (ICD-10) Umbilical hernia (03/2024) ?K42.9 - Umbilical hernia without obstruction or gangrene (ICD-10) Invasive ductal carcinoma of breast (11/2023) ?C50.919 - Malignant neoplasm of unspecified site of unspecified female breast (ICD-10) Pulmonary nodule (2019) ?R91.1 - Solitary pulmonary nodule (ICD-10) Right shoulder pain ?M25.511 - Pain in right shoulder (ICD-10) Osteoarthritis ?M19.90 - Unspecified osteoarthritis, unspecified site (ICD-10) Morbid obesity with body mass index (BMI) of 45.0 to 49.9 in adult ?E66.01 - Morbid (severe) obesity due to excess calories (ICD-10) ?Z68.42 - Body mass index [BMI] 45.0-49.9, adult (ICD-10) Methotrexate, termite control representative, current use ?Z79.631 - long-term (current) use of antimetabolite agent (ICD-10) Alopecia ?L65.9 - Nonscarring hair loss, unspecified (ICD-10) H/O bone density study (11/2021) ?Z92.89 - Personal history of other medical treatment (ICD-10) Surgical History (Updated 07/13/25 @ 11:13 by Kajal Viveros MD) S/P bilateral mastectomy (12/2023) ?Z90.13 - Acquired absence of bilateral breasts and nipples (ICD-10) History of excision of mass (08/2019) ?Z98.890 - Other specified postprocedural states (ICD-10) History of dilation and curettage (08/2018) ?Z98.890 - Other specified postprocedural states (ICD-10) History of breast biopsy (2014) ?Z98.890 - Other specified postprocedural states (ICD-10) Family History Diabetes Maternal Grandfather Coronary artery disease Mother, Onset Age: 59 Depression Mother Sister Daughter Tung-Danlos syndrome Daughter Mast cell disorder Daughter Breast cancer Mother, Onset Age: 60 Stroke Father Social History (Updated 06/29/25 @ 09:50 by Maranda Reagan MD) Narrative: , lives in independent living , 1 adult daughter, cat Goober 1 yo Does not drink alcohol stationary bike not access anymore. 2 50 min exercise classes a week, weights and chair yoga Non-smoker- quit age 42, 12 pack years What is your current living situation?: I presently have a place to live Problems where you live: pests, such as bugs, ants, or mice and water leaks Problems where you live details: water damage in ceiling, complex is assessing In the past 12 months, utilities in danger of being shut off: no In past 12 months, lack of transportation kept you from medical appts, meetings, work, or getting things needed for daily living: yes In the past 12 mos, have been you worried that your food would run out before you had money to buy more?: never true In the past 12 mos, the food you bought just didn't last and you didn't have money to buy more?: never true Smoking Status: Former smoker Do you use any of these nicotine containing products: None How often do you have a drink containing alcohol: monthly or less AUDIT-C Alcohol total score: 1 Non-prescribed substance use: denies use Caffeine: Yes (occ.) How often does anyone, including family, friends and others, physically hurt you: never How often does anyone, including family, friends and others, insult or talk down to you: never How often does anyone, including family, friends and others, threaten you with harm: never How often does anyone, including family, friends and others, scream or curse at you: never service: No Health Related Social Needs: Inadequate housing (Z59.1) and transportation insecurity (Z59.82) Meds Home Medications and Allergies Home Medications ?Medication ?Instructions ?Recorded ?Confirmed ?Type polyethylene glycol 3350 17 gram 17 g PO BID PRN 08/11/23 07/12/25 History oral powder packet (Miralax) duloxetine 60 mg capsule,delayed 120 mg PO DAILY@12 12/16/23 07/12/25 History release magnesium oxide 400 mg PO DAILY 12/16/23 07/12/25 History acetaminophen 325 mg tablet 650 mg (2 x 325 mg) PO Q4H PRN 01/20/24 07/12/25 Rx Pain #25 tabs cholecalciferol (vitamin D3) 125 125 mcg PO QDAY 02/07/24 07/12/25 History mcg (5,000 unit) capsule loperamide 2 mg capsule 2 mg PO Q6H PRN 02/07/24 07/12/25 History (Anti-Diarrheal (loperamide)) fluticasone propionate 50 2 spray intranasal DAILY PRN 09/29/24 07/12/25 Rx mcg/actuation nasal allergy symptoms #48 grams spray,suspension (Flonase Allergy Relief) calcium carbonate (Calcium 600) 600 mg PO BID #180 tabs 01/18/25 07/12/25 Rx anastrozole 1 mg tablet (Arimidex) 1 mg PO QDAY #90 tabs 07/09/25 07/12/25 Rx Allergies Allergy/AdvReac Type Severity Reaction Status Date / Time Sulfa (Sulfonamide Allergy Severe Anaphylaxis Verified 07/09/25 12:49 Antibiotics) MOLD Allergy Unknown Uncoded 06/29/25 09:33 Exam Narrative: Exam Narrative: GEN: Alert and oriented, sitting up in bed and eating supper HEENT: EOMIs bilaterally, no scleral icterus CV: HR 90-100s, + systolic murmur R: LCTA bilaterally Chest: Wrapped, HUEY bandage is dry, not removed for exam Neuro: Nonfocal Psych: Appropriate Const: Vital Signs, click to edit/add: Vital Signs - 24 hr 07/12/25 20:00 07/12/25 23:00 07/12/25 23:00 Temperature 98.2 F Pulse Rate Pulse Rate [Left P ulse Oximeter] 82 99 Respiratory Rate 16 16 Blood Pressure Blood Pressure [Ri ght Arm] Blood Pressure [Ri ght Calf] 164/81 H Pulse Oximetry 94 96 Oxygen Delivery Me thod Room Air Room Air Oxygen Flow Rate Fraction of Inspir ed Oxygen 07/12/25 23:58 07/13/25 04:13 07/13/25 08:14 Temperature 97.6 F 97.3 F L 97.5 F L Pulse Rate Pulse Rate [Left P ulse Oximeter] 99 100 100 Respiratory Rate 16 18 20 Blood Pressure Blood Pressure [Ri ght Arm] 113/60 118/67 123/70 Blood Pressure [Ri ght Calf] Pulse Oximetry 96 94 94 Oxygen Delivery Me thod Room Air Room Air Room Air Oxygen Flow Rate Fraction of Inspir ed Oxygen 07/13/25 09:25 07/13/25 09:25 07/13/25 11:00 Temperature 97.4 F L 97.4 F L Pulse Rate Pulse Rate [Left P ulse Oximeter] 94 70 Respiratory Rate 18 18 16 Blood Pressure Blood Pressure [Ri ght Arm] 126/54 L 136/56 L Blood Pressure [Ri ght Calf] Pulse Oximetry 96 96 96 Oxygen Delivery Me thod Room Air Room Air Room Air Oxygen Flow Rate Fraction of Inspir ed Oxygen 07/13/25 13:15 07/13/25 13:20 07/13/25 13:25 Temperature 97.1 F L Pulse Rate 93 98 91 Pulse Rate [Left P ulse Oximeter] Respiratory Rate 14 16 16 Blood Pressure 148/69 H 143/74 H 139/67 Blood Pressure [Ri ght Arm] Blood Pressure [Ri ght Calf] Pulse Oximetry 95 94 95 Oxygen Delivery Me thod Nasal Cannula Nasal Cannula Nasal Cannula Oxygen Flow Rate 2 2 2 Fraction of Inspir ed Oxygen 100 100 100 07/13/25 13:30 07/13/25 13:35 07/13/25 13:40 Temperature 97.4 F L Pulse Rate 94 84 82 Pulse Rate [Left P ulse Oximeter] Respiratory Rate 16 16 16 Blood Pressure 147/74 H 150/79 H 155/75 H Blood Pressure [Ri ght Arm] Blood Pressure [Ri ght Calf] Pulse Oximetry 94 94 95 Oxygen Delivery Me thod Room Air Room Air Room Air Oxygen Flow Rate Fraction of Inspir ed Oxygen 07/13/25 15:00 07/13/25 15:00 Temperature Pulse Rate Pulse Rate [Left P ulse Oximeter] Respiratory Rate 16 16 Blood Pressure Blood Pressure [Ri ght Arm] Blood Pressure [Ri ght Calf] Pulse Oximetry 95 Oxygen Delivery Me thod Room Air Oxygen Flow Rate 1 Fraction of Inspir ed Oxygen Labs Labs: Short CBC 07/13/25 Range/Units 16:58 Hgb 8.7 L (12.0-16.0) gm/dL Assessment and Plan Assessment and plan (1) S/P scar revision: Status: Acute (2) Tachycardia: Problem comment: - likely 2/2 ABLA, will give IVF bolus and follow, exam and history reassuring Status: Acute (3) Acute blood loss as cause of postoperative anemia: Problem comment: - Hgb 8.7, will follow. Patient amenable to blood transfusion if indicated Status: Acute Plan Follow hemoglobin, transfuse if needed
[2025-07-13] MEDS: 0.9 % SODIUM CHLORIDE 500 ML 500 ML IV (18:04)
[2025-07-13] MEDS: HYDROCODONE-ACETAMIN 5-325 MG 1 TAB PO (18:04)
--- NOTE | 2025-07-13 20:01 | PC.NURSE ---
shift note: pt is AOx4. Afebrile. pt seen by surgeon bedside in AM; notable swelling and bleeding. dressing and delroy wrap soiled & changed by surgeon. pt up to BR by RICHARD DE LA TORRE w/ TASHA. pt made NPO and back to sx for hematoma evacuation. pt returned from sx, denies N/V and dizziness. pt tolerating regular diet post-op. elevated HR post-op; hospitalist and surgeon notified. NS bolus ordered & administered. 02 <89% post-op, RN placed pt on 1L NC, pain ranging from 4-9/10, prn pain med given. See EMAR. Dressing C/D/I. SJ draining & in place. Binder in place over delroy wrap.
[2025-07-13 22:18] LABS: Hemoglobin* 8.4 gm/dL (12.0-16.0)
[2025-07-14] VITALS (10 sets, daily range): BP systolic 112–140; BP diastolic 56–74; PULSE 70–94; RESP 16–18; TEMP 36.2–36.6; O2SAT 93–100
[2025-07-14] MEDS: HYDROCODONE-ACETAMIN 5-325 MG 1 TAB PO ×2 (02:24→06:39)
--- NOTE | 2025-07-14 05:17 | PC.NURSE ---
[id number]: Patient pleasant and cooperative. Dressings to bilateral breasts C/D/I, Abd binder in place. SJ drain patent. SBA to BR. PRN medication for pain management. Afebrile. Eating and voiding.
[2025-07-14 07:08] LABS: Hemoglobin* 7.8 gm/dL (12.0-16.0)
--- NOTE | 2025-07-14 09:36 | P.DS_ITS ---
DS: Providers Provider Date Seen: 07/14/25 Date of admission: 07/13/25 15:29 Primary care physician: Maranda Reagan MD Admitting Clinician: Reina Schroeder MD Consults: 07/12/25 07:22 Consult to [facility] House Keeper [CONS] Routine Comment: Reason for Consult:: Social Service Consult 07/12/25 09:43 Consult to Occupational Therapy [CONS] Routine Comment: Reason(s) for OT Consult:: Evaluate and Treat Any Restrictions?:: See Comment Comment: Avoid using walker for next 2 weeks as incision heals. Consult to Physical Therapy [CONS] Routine Comment: Reason(s) for PT Consult:: Evaluate and Treat Any Restrictions?:: See Comment Comment: Avoid using walker as much as able while incision heals (ok for tra nsfers etc) Attending Physician on discharge: Komal Kiser MD DS: Diagnosis Discharge Diagnosis (1) S/P scar revision: Status: Acute DS: Summary Hospital Course Hospital Course: 69-year-old female underwent bilateral mastectomy scar revision. On postop day 1 she developed moderately sized hematoma at the site of her right chest incision. She was taken back to the operating room for hematoma evacuation. 600 mL of clot was evacuated. Patient's incision was closed and a drain was placed. Postoperatively, patient had mild tachycardia and low urine output. This improved with IV fluid boluses. Patient's hemoglobin dropped from normal to 8.7. It remained stable with rechecks. The lowest hemoglobin patient dropped to was 7.8. Patient received 1 unit of blood prior to discharge. On the day of discharge patient was tolerating regular diet, passing gas, urinating, and her pain was controlled with p.o. medications. Patient was instructed on drain care and was used to doing this after her mastectomy. Patient will continue with compressive dressing over her chest. Time Spent with Patient Time attestation: Total time spent providing and/or coordinating discharge services: Exam Narrative: Exam Narrative: Chest: Left surgical incision is with clean Steri-Strips in place. Right side is surgical incision with extensive skin ecchymosis but no expanding hematoma, no swelling palpated under the incision. The drain is in place with small amount of bloody thin fluid in the bulb. The drain tubing was stripped. Patient is wearing an Daniel wrap and an abdominal binder. Const: Vital Signs, click to edit/add: Vital Signs - 24 hr 07/13/25 11:00 07/13/25 13:15 07/13/25 13:20 Temperature 97.4 F L 97.1 F L Pulse Rate 93 98 Pulse Rate [Left P ulse Oximeter] 70 Respiratory Rate 16 14 16 Blood Pressure 148/69 H 143/74 H Blood Pressure [Ri ght Arm] 136/56 L Pulse Oximetry 96 95 94 Oxygen Delivery Me thod Room Air Nasal Cannula Nasal Cannula Oxygen Flow Rate 2 2 Fraction of Inspir ed Oxygen 100 100 07/13/25 13:25 07/13/25 13:30 07/13/25 13:35 Temperature Pulse Rate 91 94 84 Pulse Rate [Left P ulse Oximeter] Respiratory Rate 16 16 16 Blood Pressure 139/67 147/74 H 150/79 H Blood Pressure [Ri ght Arm] Pulse Oximetry 95 94 94 Oxygen Delivery Me thod Nasal Cannula Room Air Room Air Oxygen Flow Rate 2 Fraction of Inspir ed Oxygen 100 07/13/25 13:40 07/13/25 13:45 07/13/25 14:00 Temperature 97.4 F L 96.9 F L 97.3 F L Pulse Rate 82 Pulse Rate [Left P ulse Oximeter] 80 84 Respiratory Rate 16 16 16 Blood Pressure 155/75 H Blood Pressure [Ri ght Arm] 149/79 H 152/74 H Pulse Oximetry 95 91 88 Oxygen Delivery Me thod Room Air Room Air Room Air Oxygen Flow Rate Fraction of Inspir ed Oxygen 07/13/25 14:15 07/13/25 14:30 07/13/25 14:45 Temperature 97.3 F L 97.5 F L Pulse Rate Pulse Rate [Left P ulse Oximeter] 66 63 83 Respiratory Rate 16 16 Blood Pressure Blood Pressure [Ri ght Arm] 150/73 H 148/71 H 139/80 Pulse Oximetry 93 93 92 Oxygen Delivery Me thod Nasal Cannula Nasal Cannula Room Air Oxygen Flow Rate 1 1 1 Fraction of Inspir ed Oxygen 07/13/25 15:00 07/13/25 15:00 07/13/25 15:15 Temperature Pulse Rate Pulse Rate [Left P ulse Oximeter] 95 Respiratory Rate 16 16 Blood Pressure Blood Pressure [Ri ght Arm] 127/62 Pulse Oximetry 95 92 Oxygen Delivery Me thod Room Air Room Air Oxygen Flow Rate 1 1 Fraction of Inspir ed Oxygen 07/13/25 15:45 07/13/25 17:00 07/13/25 18:20 Temperature 97.5 F L 97.7 F Pulse Rate Pulse Rate [Left P ulse Oximeter] 103 H 104 H 89 Respiratory Rate 18 18 Blood Pressure Blood Pressure [Ri ght Arm] 138/64 132/58 L 119/67 Pulse Oximetry 93 93 Oxygen Delivery Me thod Room Air Room Air Oxygen Flow Rate 1 1 Fraction of Inspir ed Oxygen 07/13/25 18:50 07/13/25 20:23 07/13/25 22:39 Temperature 98.0 F 97.9 F Pulse Rate Pulse Rate [Left P ulse Oximeter] 90 89 77 Respiratory Rate 20 20 Blood Pressure Blood Pressure [Ri ght Arm] 122/65 100/55 L 150/61 H Pulse Oximetry 92 95 Oxygen Delivery Me thod Room Air Room Air Oxygen Flow Rate Fraction of Inspir ed Oxygen 07/13/25 23:00 07/14/25 02:17 07/14/25 08:19 Temperature 97.5 F L 97.4 F L Pulse Rate Pulse Rate [Left P ulse Oximeter] 71 94 Respiratory Rate 20 18 18 Blood Pressure Blood Pressure [Ri ght Arm] 140/56 H 117/63 Pulse Oximetry 95 95 95 Oxygen Delivery Me thod Room Air Room Air Room Air Oxygen Flow Rate Fraction of Inspir ed Oxygen DS: Data Data Completed and Pending Completed studies during hospitalization: Procedures Excision of Right Axillary Lymphatic, Open Approach, Diagnostic (01/18/24) Resection of Bilateral Breast, Open Approach (01/18/24) Labs on day of discharge: Labs from last 24 hours 07/14/25 07/13/25 07/13/25 06:10 22:12 16:58 Hgb 7.8 L* 8.4 L 8.7 L Blood Type Pending Antibody Screen Pending Crossmatch (AHG) See Detail Discharge Plan Discharge Disposition: Home, Self-Care Date of Admission: 07/13/25 15:29 Primary Care Provider: Maranda Reagan Condition: Improved Anticipated Discharge Date/Time: 07/14/25 13:00 Discharge Medications: Continued polyethylene glycol 3350 [Miralax] 17 gram powder in packet 17 g PO BID PRN cholecalciferol (vitamin D3) 125 mcg (5,000 unit) capsule 125 mcg PO QDAY loperamide [Anti-Diarrheal (loperamide)] 2 mg capsule 2 mg PO Q6H PRN anastrozole [Arimidex] 1 mg tablet 1 mg PO QDAY Qty: 90 3RF magnesium oxide 400 mg magnesium tablet 400 mg PO DAILY duloxetine 60 mg capsule,delayed release(DR/EC) 120 mg PO DAILY@12 fluticasone propionate [Flonase Allergy Relief] 50 mcg/actuation spray,suspension 2 spray intranasal DAILY PRN (Reason: allergy symptoms) Qty: 48 8RF Rx Instructions: administer into each nostril acetaminophen 325 mg Tablet 650 mg PO Q4H PRN (Reason: Pain) Qty: 25 0RF calcium carbonate [Calcium 600] 600 mg calcium (1,500 mg) tablet 600 mg PO BID Qty: 180 3RF Discharge Orders: Discharge Order (Routine); Ordered 07/14/25 Ordered By: Kajal Viveros Patient Education: Deep Sedation (DC), NH+C Post-Operative Instructions: Breast Surgery Additional Instructions: You were prescribed a narcotic pain medication (dispense through [facility] because of your inability to get to the pharmacy). In addition you may supplement with Tylenol and/or ibuprofen. Be sure to not exceed greater than 4 g of Tylenol in a 24 hour period. Please take MiraLax daily or senna daily to avoid constipation. Continue to wear an abdominal binder to apply compression to the incisions for the next 2 weeks. This helps prevent fluid from building up underneath your incisions. You have Steri-Strips dressings in place, allow these to fall off on their own. Okay to shower starting tomorrow. Do not soak in a bath or swim for 2 weeks. You should strip the drain 3-4 times per day while awake. If the drain bulb feels up with bloody fluid 3 times per day, call our surgical floor [phone]. Follow-up with Dr. Viveros on Wednesday at noon in [facility]. Follow-up with Dr. Schroeder in 2-3 weeks. Please call if you are experiencing severe pain, nausea, vomiting, difficulty urinating, fever or not had a bowel movement in 4 days after surgery. Activity Level: No strenuous activity Activity Detail: Avoid lifting her arms above your head the next 2 weeks. No heavy lifting greater than 20 lb for the next 2 weeks. Discharge Diet: Regular Follow Up Appointments: Reina Schroeder MD [Staff Physician, General Surgery] Kajal Viveros MD [Staff Physician, General Surgery] Maranda Reagan MD [Primary Care Provider, Family Practice] Forms: [employer] Info Instructions
--- NOTE | 2025-07-14 12:21 | PC.NURSE ---
[facility] prescription from Dr. Viveros for [place] 5mg/325mg, take 1 tablet every 4-6 hours as needed for pain, 20 tablets and no refills.
--- NOTE | 2025-07-14 13:53 | PC.NURSE ---
Discharge-- Pleasant and cooperative, alert and oriented patient discharged to home via scooter. VSS and pt is afebrile. SpO2 maintained >90% on RA. Pain appears well managed with PRN [place] given only once today. Dressing to chest C/D/I. Pt was given 1 unit PRBCs today per MD order and tolerated it well. Discharge education was provided including diagnosis info, symptoms to report, medications and follow up plan. No further questions asked. SL was removed with tip intact.
== END 2025-07-14 13:00 | disposition home or self-care (01) | DRG 571 ==
LOC: SS 15:31 → MEDSURG 15:31
PROVIDERS: Family Medicine; Surgery; Admitting Provider Surgery; PCP Family Medicine; Visit Provider Family Medicine
PROC: 0JB60ZZ Excision of Chest Subcutaneous Tissue and Fascia, Open Approach (ICD-10-PCS; principal; 2025-07-12 07:30)
PROC: 0J9600Z Drainage of Chest Subcutaneous Tissue and Fascia with Drainage Device, Open Approach (ICD-10-PCS; principal; 2025-07-13 11:00)
DX: L90.5 Scar conditions and fibrosis of skin (principal); D62 Acute posthemorrhagic anemia; L76.32 Postprocedural hematoma of skin and subcutaneous tissue following other procedure; Z68.43 Body mass index [BMI] 50.0-59.9, adult; Z59.19 Other inadequate housing; Z90.13 Acquired absence of bilateral breasts and nipples; N64.89 Other specified disorders of breast; R00.0 Tachycardia, unspecified; E66.01 Morbid (severe) obesity due to excess calories; G47.33 Obstructive sleep apnea (adult) (pediatric); Z99.89 Dependence on other enabling machines and devices; Z85.3 Personal history of malignant neoplasm of breast; Z59.82 Transportation insecurity; Z79.631 Long term (current) use of antimetabolite agent; F41.9 Anxiety disorder, unspecified
CPT/HCPCS: 00400; 36415; 36430; 85018; 86850; 86900; 86901; 86922; 97161; 97165; 97530; 97535; J2003; A9270; J0330; J0665; J0666; J0690; J1100; J1171; J1885; J2250; J2371; J2405; J2704; J2710; J3010; J3475; J3490; J7030; J7120; P9016